=== PATIENT | male | born 1945 | race Caucasian/White ===

== ENCOUNTER → 2016-03-21 | Outpatient (CLI) | payer BC ==
[~2016-03-21] MED LIST: FRS/40 PO; MULT-573 PO; Metoprolol Succinate PO; POTA20TA16 PO; XRL10 PO
[2016-03-21 11:10] LABS: HEMATOCRIT 45.1 % (42-52); MEAN CELL VOLUME 95.6 fL (80-100); MEAN CORPUSCULAR HEMOGLOBIN 34.1 pg (25-34); MEAN CORPUSCULAR HGB CONC 35.7 g/dl (32-36); MEAN PLATELET VOLUME 12.3 fL (7.4-10.4); PLATELET COUNT 142 K/uL (130-400); RED BLOOD COUNT 4.72 M/uL (4.7-6.1); WHITE BLOOD COUNT 5.79 K/uL (4.8-10.8)
[2016-03-21 11:30] LABS: BLOOD UREA NITROGEN 30 mg/dl (7-18); BUN/CREATININE RATIO 25.2 (10-20); CALCIUM 9.1 mg/dl (8.5-10.1); CARBON DIOXIDE 29 mmol/L (21-32); CHLORIDE 105 mmol/L (98-107); GLUCOSE 114 mg/dl (70-99); POTASSIUM 4.5 mmol/L (3.5-5.1); SODIUM 142 mmol/L (136-145)
== END | disposition home or self-care (01) ==
LOC: C.LABBC 07:09
PROVIDERS: ATTEND Internal Medicine Cardiovascular Disease
DX: I48.91 Unspecified atrial fibrillation (principal); I50.32 Chronic diastolic (congestive) heart failure; R00.1 Bradycardia, unspecified; I34.0 Nonrheumatic mitral (valve) insufficiency; Z79.01 Long term (current) use of anticoagulants

== ENCOUNTER → 2016-10-16 | Outpatient (CLI) | payer BC ==
[2016-10-16 11:31] LABS: BASO % 0.2 %; BASO ABS # 0.01 K/uL (0-0.2); COMPLETE YES; EOS % 1.8 %; HEMATOCRIT 43.8 % (42-52); IG% 0.4 %; LYMPH % 29.6 %; LYMPH ABS # 1.67 K/uL (1.2-3.4); MEAN CELL VOLUME 97.3 fL (80-100); MEAN CORPUSCULAR HGB CONC 34.9 g/dl (32-36); MEAN PLATELET VOLUME 12.7 fL (7.4-10.4); MONO % 6.6 %; NEUT % 61.4 %; PLATELET COUNT 131 K/uL (130-400); WHITE BLOOD COUNT 5.64 K/uL (4.8-10.8)
[2016-10-16 11:56] LABS: ALT/SGPT 29 U/L (12-78); AST/SGOT 24 U/L (15-37); BLOOD UREA NITROGEN 32 mg/dl (7-18); BUN/CREATININE RATIO 28.9 (10-20); CALCIUM 9.1 mg/dl (8.5-10.1); CARBON DIOXIDE 29 mmol/L (21-32); CHLORIDE 107 mmol/L (98-107); CHOLESTEROL 154 mg/dl (0-200); GLUCOSE 104 mg/dl (70-99); POTASSIUM 4.6 mmol/L (3.5-5.1); SODIUM 142 mmol/L (136-145)
[2016-10-16 12:02] LABS: ESTIMATED AVERAGE GLUCOSE 117 mg/dl; HA1C FLAG Normal (Normal)
[2016-10-16 12:06] LABS: ALKALINE PHOSPHATASE 63 U/L (45-117); CHOLESTEROL/HDL RATIO 2.5; HDL CHOLESTEROL 61 mg/dl; LDL CHOLESTEROL CALCULATED 82 mg/dl; TRIGLYCERIDES 55 mg/dl (0-150); VERY LOW DENSITY LIPOPROT CALC 11 mg/dl
== END | disposition home or self-care (01) ==
LOC: C.LABBC 07:10
PROVIDERS: ATTEND Internal Medicine Cardiovascular Disease
DX: I48.91 Unspecified atrial fibrillation (principal); I34.0 Nonrheumatic mitral (valve) insufficiency; Z79.01 Long term (current) use of anticoagulants; I11.0 Hypertensive heart disease with heart failure; I50.32 Chronic diastolic (congestive) heart failure; R73.9 Hyperglycemia, unspecified; E78.5 Hyperlipidemia, unspecified

== ENCOUNTER → 2017-04-24 | Outpatient (CLI) | payer BC ==
[2017-04-24 11:06] LABS: HEMATOCRIT 42.7 % (42-52); HEMOGLOBIN 14.9 g/dL (14.0-18.0); MEAN CELL VOLUME 97.9 fL (80-100); MEAN CORPUSCULAR HEMOGLOBIN 34.2 pg (25-34); MEAN CORPUSCULAR HGB CONC 34.9 g/dl (32-36); MEAN PLATELET VOLUME 11.9 fL (7.4-10.4); PLATELET COUNT 149 K/uL (130-400); RED CELL DISTRIBUTION WIDTH CV 13.6 % (11.5-14.5); RED CELL DISTRIBUTION WIDTH SD 48.8 fL (36.4-46.3)
[2017-04-24 11:24] LABS: BLOOD UREA NITROGEN 30 mg/dl (7-18); CALCIUM 9.2 mg/dl (8.5-10.1); CARBON DIOXIDE 30 mmol/L (21-32); CREATININE 1.17 mg/dl (0.60-1.40); GLUCOSE 116 mg/dl (70-99); POTASSIUM 4.3 mmol/L (3.5-5.1); SODIUM 140 mmol/L (136-145)
== END | disposition home or self-care (01) ==
LOC: C.LABBC 08:56
PROVIDERS: ATTEND Internal Medicine Cardiovascular Disease
DX: I48.91 Unspecified atrial fibrillation (principal); R00.1 Bradycardia, unspecified

== ENCOUNTER 2017-10-23 14:33 | Emergency (ER) | payer BC ==
[~2017-10-23] VITALS: Ht 162.6 cm; Wt 66.0 kg
[~2017-10-23 14:33] MED LIST changes: +POTA-639 PO; -POTA20TA16 PO
[2017-10-23 14:41] VITALS: TEMP 36.5; Ht 162.6 cm; Wt 66.0 kg
--- NOTE | 2017-10-23 15:02 | EMERGENCY ROOM VISIT NOTE ---
History Report prepared by Francisca: Rasta Pace Under the Supervision of: Dr. Khris Waller M.D. First contact with patient: 14:44 Chief Complaint: BLEEDING Stated Complaint: BLOOD FROM BLISTER ON RT TESTICLE History of Present Illness The patient is a 71 year old male with a past medical history of hypertension who presents to the ED with a cc of an episode of scrotal bleeding that began 45 minutes ago. The patient states he brushed against his scrotum and opened up a blood blister. He notes that he has had these blood blisters for about 25 years and have only experienced them opening up two other times. He states that the last time this happened was about 15 years ago. The patient reports that he takes 20mg of Xarelto a day and 25mg of Toprol a day for Afib. Negative for urination symptoms and testicular pain. Source of History: patient Onset: 45 minutes ago Position: other (scrotum) Quality: other (bleeding) Timing: other (episodic) Associated Symptoms: No urinary symptoms Review of Systems See HPI for pertinent positives and negatives. A total of ten systems were reviewed and were otherwise negative. Past Medical & Surgical Medical Problems: (1) Benign hypertension Family History Patient reports no known family medical history. Social History Smoking Status: Never Smoker Marital Status: Housing Status: lives with significant other Current/Historical Medications Scheduled Multiple Vitamins W/ Minerals (Centrum Cardio), 1 TAB PO DAILY Rivaroxaban (Xarelto), 20 MG PO DAILY [Metoprolol Succinate], 50 MG PO QAM Scheduled PRN Furosemide (Lasix), 40 MG PO for . Potassium Ext Rel (Klor-Con), 20 MEQ PO for . Allergies Coded Allergies: No Known Allergies (Unverified , 04/28/15) Physical Exam Vital Signs Date Time Temp Pulse Resp B/P (MAP) Pulse Ox O2 Delivery O2 Flow Rate FiO2 10/23/17 15:57 70 20 140/83 99 10/23/17 14:41 36.5 63 20 146/73 98 Room Air Physical Exam GENERAL: Awake, alert, well-appearing, NAD, wearing glasses HENT: Normocephalic, atraumatic. EYES: Normal conjunctiva. Sclera non-icteric. PERRL. No anisocoria. NECK: Supple. No nuchal rigidity. FROM. RESPIRATORY: CTAB, no rhonchi, wheezing, crackles CARDIAC: Irregularly irregular rhythm, no MRG, normocardic ABDOMEN: Soft, NTND, BS+ MSK: No chest wall TTP, no LE edema NEURO: GCS 15, CN 2-12 intact, moves all 4s on command SKIN: No rash or jaundice noted. bandage over right scrotal area, hemostatic, no active bleeding, No erythema, crepitus, or fluctuance. Medical Decision & Procedures Procedure Location: Right scrotum Total length: 1/4 inch Complexity: Simple Verbal consent was obtained after the risks and benefits were explained, including but not limited to bleeding, scarring, infection, pain, and bone/joint /nerve damage. At this time, the risks of the procedure are less than the risks of NOT performing the procedure. A time out was taken and the correct patient and site identified. The skin was prepped with an alcohol swab. The wound edges were approximated using skin glue. Hemostasis and excellent approximation was achieved. Detailed wound care instructions and signs and symptoms of infection reviewed with the patient. No complications and the patient tolerated the procedure well. ED Course 1448: The patient was evaluated in room C5. A complete history and physical exam was performed. 1558: I reevaluated the patient. Discussed results and discharge instructions: He verbalized understanding and agreement. The patient is ready for discharge. Medical Decision Nursing notes reviewed. Ancillary studies and prior records reviewed. The patient is a 71 year old male with a past medical history of hypertension who presents to the ED with a cc of an episode of scrotal bleeding that began 45 minutes ago. Differential diagnosis: Etiologies such as cellulitis, abscess, MRSA infection, DVT, necrotizing fasciitis, dermatitis, drug eruption, as well as others were entertained. Patient was seen and evaluated the bedside. The patient has a known history of prior history of small almost hemangiomas of the scrotum. Patient states that he has had these ruptures before and that they have bled but usually resolve fairly quickly the patient was concerned as he is now on Xarelto and has been so for the last 3 years given his history of A. fib. On exam the patient's bandages providing hemostasis but the patient was very adamant that the area be checked and after discussion with the patient that this may further cause worsening bleeding and clot disruption stated that he still wanted it looked at. This is removed and the patient did have subsequent bleeding. It is very small in nature less than 1/4 inch. It is hemostatic with pressure. Initially a Band-Aid was applied but there is mild persistent bleeding so additional compression was manually applied by the patient and some skin glue was applied. This did achieve hemostasis. There is no evidence of overlying L erythema. Given the prolonged course that he has had these small lesions which do appear to be almost blood blister like or even hemangiomas do not believe that there is any evidence of cellulitis no crepitus and no pain suggestive of Deanna's. Patient was given a glue pen and was told that he should first try things like compression, formfitting underwear, ice, and pressure. Do not believe the patient requires any further workup or treatment at this time. The patient's bleeding is been fairly minimal and is from a very small site that is well compressed and is currently hemostatic. Patient was given strict follow-up, discharge, and return precautions. All questions were answered. Patient was deemed suitable for outpatient follow-up at this time. Patient agreed with the plan of care and was safely discharged home. Medication Reconcilliation Current Medication List: was personally reviewed by me Blood Pressure Screening Patient's blood pressure: Elevated blood pressure Blood pressure disposition: Elevated BP felt to be situational Impression Primary Impression: Bleeding pigmented skin lesion Scribe Attestation The scribe's documentation has been prepared under my direction and personally reviewed by me in its entirety. I confirm that the note above accurately reflects all work, treatment, procedures, and medical decision making performed by me. Departure Information Dispostion Home / Self-Care Referrals Smith Cassidy M.D. (PCP) Forms HOME CARE DOCUMENTATION FORM, IMPORTANT VISIT INFORMATION Patient Instructions My [facility] Additional Instructions Please return to the emergency department if you have worsening or recurrent symptoms not amenable to at-home treatment. Please call for a follow-up appointment with her primary care physician. Please take your medications as prescribed. If you have other concerns and/or complaints please feel free to also call your primary care physician's office or return the ED for further evaluation, management, and treatment. You may take tylenol 650 mg every 6 hours as needed for pain/fever unless told by your physician to not take it or have liver problems. Take your medications as prescribed. Make sure that you apply compression and consider ice to help with any improvement in any further bleeding. Follow-up with your primary care physician. You have been examined and treated today on an emergency basis only. This is not a substitute for, or an effort to provide, complete comprehensive medical care. It is impossible to recognize and treat all injuries or illnesses in a single emergency department visit. It is therefore important that you follow up closely with [facility], your PCP, and/or your specialist(s). Call as soon as possible for an appointment. Thank you for your time and consideration. I look forward to speaking with you again soon. Please don't hesitate to call us if you have any questions.
[2017-10-23 15:57] VITALS: BP 140/83; PULSE 70; O2SAT 99
== END 2017-10-23 15:58 | disposition home or self-care (01) ==
LOC: C.EDB 14:34 → C.EDC 15:58
DX: L98.9 Disorder of the skin and subcutaneous tissue, unspecified (principal); I10 Essential (primary) hypertension

== ENCOUNTER 2021-11-11 03:25 | Inpatient (IN) ==
[2021-11-11 03:31] VITALS: TEMP 98.4
[2021-11-11] MEDS ORDERED: SODIUM CHLORIDE 0.9% 1000ML 1,000 ML IV STA (04:08)
[2021-11-11 04:37] LABS: Basophils # (auto) 0.02 K/uL (0-0.2); Basophils % (auto) 0.3 %; Eosinophils % (auto) 1.7 %; Hematocrit (blood only) 42.3 % (40.1-51.0); Hemoglobin 14.7 g/dl (14.0-18.0); Immature Granulocytes # (auto) 0.02 K/uL (0.00-0.02); Immature Granulocytes % (auto) 0.3 %; Lymphocytes # (auto) 1.51 K/uL (1.2-3.4); Lymphocytes % (auto) 25.7 %; Mean Corpuscular Hemoglobin 33.9 pg (25.0-34.0); Mean Corpuscular Hgb Conc 34.8 g/dL (32.0-36.0); Mean Corpuscular Volume 97.7 fL (80.0-100.0); Mean Platelet Volume 10.9 fL (9.4-12.4); Monocytes # (auto) 0.49 K/uL (0.24-0.82); Monocytes % (auto) 8.3 %; Neutrophils # (auto) 3.74 K/uL (1.4-6.5); Neutrophils % (auto) 63.7 %; Platelet Count 157 K/uL (130-400); RDW Coefficient of Variation 13.3 % (11.5-14.5); Red Blood Count 4.33 M/uL (4.63-6.08); White Blood Count 5.88 K/ul (4.8-10.8)
[2021-11-11 04:40] LABS: Appearance Urine Clear (Clear); Bilirubin Urine Negative (Negative); Blood Urine Negative (Negative); Color Urine Yellow; Glucose Urine UA Negative (Negative); Ketones Urine Negative (Negative); Leukocyte Esterase Urine Negative (Negative); Nitrite Urine Negative (Negative); Protein Urine Negative (Negative); Specific Gravity Urine 1.015 (1.000-1.030); Urobilinogen Urine Negative (Negative)
[2021-11-11 04:58] LABS: Albumin Globulin Ratio 1.5 (0.9-2); Albumin Level 4.1 gm/dl (3.4-5.0); BUN Creatinine Ratio 26.2 (10-20); Bilirubin,Total 3.2 mg/dl (0.2-1.0); Calcium 9.4 mg/dl (8.5-10.1); Creatinine Clr Calc Pharmacy 48.4 ml/min; Est GFR (African American) 77.2 ml/min; Est GFR (Non-African American) 66.6 ml/min; Globulin 2.8 gm/dl (2.5-4.0); Total Protein 6.9 gm/dl (6.0-8.3)
[2021-11-11 05:01] LABS: Troponin I High Sensitivity 37.7 pg/ml (0-20)
--- NOTE | 2021-11-11 08:07 | Electrocardiogram Report ---
Test Reason : Blood Pressure : / mmHG Vent. Rate : 049 BPM Atrial Rate : 049 BPM P-R Int : 266 ms QRS Dur : 118 ms QT Int : 462 ms P-R-T Axes : 000 -56 113 degrees QTc Int : 417 ms Atrial flutter Left axis deviation Left ventricular hypertrophy with QRS widening and repolarization abnormality Old Anteroseptal infarct (cited on or before 07-JUL-2014) Abnormal ECG When compared with ECG of 11-NOV-2021 03:49, No significant change Confirmed by Issa Ernst ([id number]) on 11/11/2021 11:17:41 AM Referred By: REFERRED SELF Confirmed By:Issa Ernst
--- NOTE | 2021-11-11 08:16 | Ultrasound Report ---
ABDOMINAL ULTRASOUND, RIGHT UPPER QUADRANT HISTORY: Epigastric pain. COMPARISON: Abdomen and pelvis CT 12/16/2018. FINDINGS: Pancreas: The pancreatic head and tail are obscured by overlying bowel gas. The remaining portions of the pancreas are within normal limits. Liver: Unremarkable. Gallbladder: There is 1.6 cm gallstone. No gallbladder wall thickening. CBD: 4 mm. Right kidney: No hydronephrosis. A few right renal cysts measuring up to 4.1 cm. IMPRESSION: 1. Cholelithiasis. No gallbladder wall thickening. 2. Right renal cysts. ACT 112: Negative or not required by law. Electronically signed by: Tomas Sage M.D. 11/11/2021 8:14 AM
--- NOTE | 2021-11-11 08:52 | Electrocardiogram Report ---
Test Reason : Blood Pressure : / mmHG Vent. Rate : 052 BPM Atrial Rate : 388 BPM P-R Int : 000 ms QRS Dur : 124 ms QT Int : 458 ms P-R-T Axes : 000 -55 109 degrees QTc Int : 425 ms Atrial flutter with variable A-V block Left axis deviation Left ventricular hypertrophy with QRS widening and repolarization abnormality Old Anteroseptal infarct (cited on or before 07-JUL-2014) Abnormal ECG When compared with ECG of 19-APR-2019 10:09, Atrial flutter has replaced Atrial fibrillation Confirmed by Issa Ernst ([id number]) on 11/11/2021 8:07:04 AM Also confirmed by Issa Ernst ([id number]), web editor Dirk Pleitez ([id number]) on 11/11/2021 8:51:58 AM Referred By: REFERRED SELF Confirmed By:Issa Ernst
--- NOTE | 2021-11-11 08:55 | History & Physical Report ---
Date of Service November 11, 2021 Assessment & Plan (1) Elevated bilirubin: Plan: Attending: Dr. Jacobsen Impression: This is a 75-year-old male that presents with 2 weeks of abdominal pain. He previously followed with Dr. Yanez but had altercation with him on the telephone and began following with [facility] gastroenterology. The fox raiser from [facility] that he was following no longer comes to [place] so he was unable to see him further. The patient reports that he awoke at about 2:30 in the morning this morning with increased midepigastric pain. He had no nausea or vomiting. He and his decided to present to the emergency department where the patient was found to have elevated total bilirubin of 3.5. Review of the labs show that the patient has had an elevated total bilirubin of 2.1 or higher since about 2018. This suggest the possibility of Gilbert's disease. Patient will be admitted for MRCP, gastroenterology consult and possible HIDA scan. Elevated total bilirubin: * Suspect Gilbert's syndrome due to chronically elevated total bilirubin * No elevated white count. No fever. Ultrasound shows no evidence of cholecystitis or pancreatitis. There is no dilatation of the common bile duct. There is however evidence of a single stone. * Patient will be admitted and hydrated with normal saline solution 125 mL/h * No indication for antibiotics at this time * Will order a direct bilirubin * MRCP ordered. Patient is n.p.o. No ice chips or sips until MRCP is completed * Gastroenterology consulted. Surgery consulted. I personally spoke with gastroenterology as well as surgery to expedite care plan (2) Atrial fibrillation: Plan: * Patient with permanent atrial fibrillation on Toprol-XL and anticoagulated with Eliquis * Generally patient has been rate controlled and completely asymptomatic for several years * Follows with Dr. Turner from [facility] cardiology * Will hold Eliquis today pending GI and surgical review as above * No other acute cardiac issues (3) Chronic diastolic CHF (congestive heart failure): Plan: * No evidence of heart failure at this time * No lower extremity edema * Patient is not on outpatient diuretics * Continue to monitor fluid status (4) Anticoagulant long-term use: Plan: * Chronically anticoagulated for atrial fibrillation under the direction of Dr. Turner from [facility] cardiology * At this time we will hold anticoagulant as above * If no surgical intervention or procedures, restart anticoagulation. Patient is rate controlled (5) Constipation: Plan: * Patient is followed Dr. Yanez in the past and is currently receiving MiraLAX daily * Home dose is listed as 17 g daily however patient reports that he only takes 8.5 g/day (half packet) * Will continue daily MiraLAX while inpatient * Follow bowel movement pattern (6) Hypertension: Plan: * Continue metoprolol succinate 25 mg daily * Monitor vital signs per protocol and treat hypertension as needed (7) DVT prophylaxis: Plan: * Hold outpatient anticoagulant * SCDs and CORA hose are ordered * Patient is cleared to ambulate as tolerated Please refer to Dr. Jacobsen's addendum for further recommendations or corrections. History of Present Illness Chief Complaint: Mid epigastric pain Primary Care Provider: Calin Padgett DO Attending: Dr. Jacobsen Patient is a 75 yo male that presents with 2 weeks of midepigastric pain. He has a past medical history including chronic atrial fibrillation on anticoagulation, history of constipation on daily polyethylene glycol (MiraLAX), history of GERD. Patient presents with a 2-week history of midepigastric pain. He has been having regular bowel movements with no diarrhea. He does have history of chronic constipation that is well managed with daily MiraLAX. The patient awoke at 230 this morning with increased midepigastric pain. He had no fever or chills but decided to present to the emergency department for further evaluation. Ultrasound was performed and identified a solitary stone that appeared to be from his gallbladder. There is no common bile duct dilatation, no cholecystitis, no pancreatitis. Patient had no elevation in his white cells. No fever. No nausea or vomiting. At the time of my examination, the patient pain was completely resolved. Patient reports chronic atrial fibrillation that he follows Dr. Turner for. He is treated with metoprolol succinate (Toprol) 25 mg p.o. daily and is anticoagulated with rivaroxaban 20 mg p.o. daily. Patient reports no other acute complaints at this time. Patient has a [id number] smoking history. He quit smoking in 1977 Patient is a retired professor of Telepartner studies at [employer] Patient has no other vocational exposure or risk factors Allergies Allergy/AdvReac Type Severity Reaction Status Date / Time amoxicillin AdvReac Diarrhea Verified 10/13/21 08:20 Home Medications Medication Instructions Recorded Confirmed Type multivitamin with minerals 1 tab PO BID 07/02/18 10/13/21 History diltiazem transdermal .2-3 times daily PRN 10/19/20 10/13/21 History metoprolol succinate 25 mg 25 mg PO QAM #90 tabs 05/21/21 10/13/21 Rx tablet,extended release 24 hr (Toprol XL) rivaroxaban 20 mg tablet (Xarelto) 20 mg PO QAM #90 tabs 05/21/21 10/13/21 Rx polyethylene glycol 3350 17 17 g PO DAILY 08/31/21 10/13/21 History gram/dose oral powder (Miralax) famotidine 20 mg tablet (Pepcid) 20 mg PO BID 6 weeks #84 tabs 11/11/21 Rx Past Med/Surg History Medical History Anal fissure Atrial fibrillation Bradycardia Chronic diastolic CHF (congestive heart failure) 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 Diverticular disease Dyslipidemia Elevated bilirubin Generalized osteoarthritis Hypertension Ischemic colitis Mitral regurgitation Pulmonary hypertension Sensorineural hearing loss of both ears Syncope and collapse Tricuspid regurgitation Surgical History H/O colonoscopy History of incision and drainage perirectal abscess Family History Father Brain tumor Mother Macular degeneration Denies family history of Ovarian cancer Prostate cancer Myocardial infarction Breast cancer Lung cancer Colorectal cancer Stroke Social History Smoking Status: Unknown if ever smoked Tobacco Type: Cigarettes Age Started Using Tobacco: 15; Age Quit Using Tobacco: 32; packs per day: 1; Years Smoked: 18; Cigarettes Per Day: 20 to 40 unfiltered; Number of Years Since Quit: 40; Second Hand Exposure: No; Hx Alcohol Use: Yes Alcohol type: hard liquor Alcohol Intake Frequency: 2-3 x/Week Alcohol Intake Frequency Comment: one a day Hx Substance Use: No Preferred Language: Malay Visual Impairment: Limited Hearing Ability: Normal Beliefs That Will Affect Care: None marital status: Current Living Situation: Spouse current occupational status: retired How many Children do You have: 2 Feels Safe at Home: Yes Childhood Exposure to Second-Hand Smoke: Yes (parents did ) caffeine: No Dental Care, Regularly: Yes Physical Activity Frequency: Does not Exercise Physical Activity Frequency Comment: doesn't because of hip Seatbelt Use: always Sunscreen Use: Yes Do you think of yourself as: straight/heterosexual Review of Systems Review of Systems: A total of 10 systems was reviewed and is negative other than as listed in the HPI Physical Exam Physical Exam: GENERAL : No acute distress EYES: No icterus, gaze conjugate. Pupils equal round and reactive to light NOSE: No evidence of epistaxis or septal breach MOUTH: No lesions or candidiasis. Mallampati score of 2 NECK: Supple. No carotid bruits. No stridor. No cervical lymphadenopathy LUNGS: CTA B/L, no wheezes, rales or rhonchi HEART: Irregular, irregular, rate controlled at 68 bpm. Patient is unaware of arrhythmia ABDOMEN: Soft, NT, ND, BS Present. Deep palpation at the liver reveals no pain or discomfort. Deep palpation of the mid epigastric region shows no discomfort. No guarding or rebound tenderness EXTREMITIES: No LE edema, pedal pulses intact and equal bilaterally. Patient has palpable inguinal hernias bilaterally. There is no evidence of incarceration or pain with palpation. NEURO: A&OX3 Results & Data Results & Data ([facility]) Vital Signs (Past 12 Hours) Vital Signs Temp Pulse Pulse Resp BP Pulse Ox O2 Del Method 11/11/21 06:22 57 L 22 145/59 H 99 Room Air 11/11/21 04:22 97 Room Air 11/11/21 03:49 61 18 139/75 11/11/21 03:28 36.9 C 73 18 99 Room Air Critical Care Results & Data Vital Signs (Past 12 Hours) Vital Signs Temp Pulse Pulse Resp BP Pulse Ox O2 Del Method 11/11/21 08:00 118 H 16 118/67 99 11/11/21 06:22 57 L 22 145/59 H 99 Room Air 11/11/21 04:22 97 Room Air 11/11/21 03:49 61 18 139/75 11/11/21 03:28 36.9 C 73 18 99 Room Air Lab & Micro Results (Past 24 Hours) RBC 4.33 M/uL (4.63-6.08) L 11/11/21 WBC 5.88 K/ul (4.8-10.8) 11/11/21 Hgb 14.7 g/dl (14.0-18.0) 11/11/21 Hct 42.3 % (40.1-51.0) 11/11/21 MCV 97.7 fL (80.0-100.0) 11/11/21 MCH 33.9 pg (25.0-34.0) 11/11/21 MCHC 34.8 g/dL (32.0-36.0) 11/11/21 RDW Standard Deviation 48.0 fL (36.4-46.3) H 11/11/21 RDW Coefficient of Variation 13.3 % (11.5-14.5) 11/11/21 Plt Count 157 K/uL (130-400) 11/11/21 MPV 10.9 fL (9.4-12.4) 11/11/21 Neutrophils (%) (Auto) 63.7 % 11/11/21 Lymphocytes (%) (Auto) 25.7 % 11/11/21 Monocytes # (Auto) 0.49 K/uL (0.24-0.82) 11/11/21 Eosinophils # (Auto) 0.10 K/uL (0-0.50) 11/11/21 Immature Granulocyte % (Auto) 0.3 % 11/11/21 Neutrophils # (Auto) 3.74 K/uL (1.4-6.5) 11/11/21 Lymphocytes # (Auto) 1.51 K/uL (1.2-3.4) 11/11/21 Monocytes # (Auto) 0.49 K/uL (0.24-0.82) 11/11/21 Eosinophils # (Auto) 0.10 K/uL (0-0.50) 11/11/21 Basophils # (Auto) 0.02 K/uL (0-0.2) 11/11/21 Immature Granulocyte # (Auto) 0.02 K/uL (0.00-0.02) 2 Na 139 mmol/L (136-145) 11/11/21 K 4.0 mmol/L (3.5-5.1) 11/11/21 Cl 105 mmol/L (98-107) 11/11/21 CO2 27 mmol/L (21-32) 11/11/21 Anion Gap 7 (3-11) 11/11/21 BUN 28 mg/dl (6-23) H 11/11/21 Creatinine 1.07 mg/dl (0.6-1.4) 11/11/21 Estimated GFR ( Amer) 77.2 ml/min 11/11/21 Estimated GFR (Non-Af Amer) 66.6 ml/min 11/11/21 BUN/Creatinine Ratio 26.2 (10-20) H 11/11/21 Glu 103 mg/dl (70-99(Fasting)) H 11/11/21 Ca 9.4 mg/dl (8.5-10.1) 11/11/21 Total Bilirubin 3.2 mg/dl (0.2-1.0) H 11/11/21 Direct Bilirubin 0.5 mg/dl (0-0.2) H 11/11/21 AST 21 U/L (13-39) 11/11/21 ALT 17 U/L (7-52) 11/11/21 Alkaline Phosphatase 64 U/L (34-104) 11/11/21 TP 6.9 gm/dl (6.0-8.3) 11/11/21 Albumin 4.1 gm/dl (3.4-5.0) 11/11/21 Globulin 2.8 gm/dl (2.5-4.0) 11/11/21 Albumin/Globulin Ratio 1.5 (0.9-2) 11/11/21 Calcium Level 9.4 mg/dl (8.5-10.1) 11/11/21 04:20 Diagnostic Findings (Past 24 Hours) Gallbladder Ultrasound 11/11/21 04:16 ABDOMINAL ULTRASOUND, RIGHT UPPER QUADRANT HISTORY: Epigastric pain. COMPARISON: Abdomen and pelvis CT 12/16/2018. FINDINGS: Pancreas: The pancreatic head and tail are obscured by overlying bowel gas. The remaining portions of the pancreas are within normal limits. Liver: Unremarkable. Gallbladder: There is 1.6 cm gallstone. No gallbladder wall thickening. CBD: 4 mm. Right kidney: No hydronephrosis. A few right renal cysts measuring up to 4.1 cm. IMPRESSION: 1. Cholelithiasis. No gallbladder wall thickening. 2. Right renal cysts. ACT 112: Negative or not required by law. Electronically signed by: Tomas Sage M.D. 11/11/2021 8:14 AM RT Ventilator Mngmt (Last Documented) Ventilator Ordered Settings Respiratory Rate 16 11/11/21 08:00 Ventilator - PT Measurements Respiratory Rate 16 Code Status & VTE Plan VTE Prophylaxis Plan VTE Prophylaxis will be ordered: Yes Supervising Physician Co-Signing Physician Notes Patient was seen and examined independently I discussed the case with Quang Meyer PAC I reviewed pertinent past medical social family history and also the plan of care and agree with the plan of care. Patient presented with abdominal pain epigastric in nature which has been escalating over the last few weeks it does not appear to be sensitive to eating drinking or recumbency. He previously has been engaged with Dr. Yanez regarding this. Physical exam is nonfocal his pain is resolved laboratories were reviewed there is no significant derangement with exception of elevation of bilirubin with elevation of transaminases. Patient is admitted for further evaluation surgical and GI evaluation also Any exceptions will be noted below PG Care Time/CCT Total # of Minutes Spent Total Time Spent with Patient: Total time spent is greater than 50% in coordination of care (as documented) at patient's floor/unit and/or counseling patient:70 with 45 minutes of [id number] interaction with the patient and his Prolonged Care Time 70 minutes including 45 minutes of [id number] interaction with the patient and his Coding Level of Care Code 25442 Initial Inpt Care Lvl 3 (25 - SIGNIFICANT, SEPARATELY IDENTIFIABLE ) Diagnoses Elevated bilirubin R17 Atrial fibrillation I48.91 Chronic diastolic CHF (congestive heart failure) I50.32 Anticoagulant long-term use Z79.01 Constipation K59.00 Hypertension I10 DVT prophylaxis Z29.9 Time Spent (min) 70
--- NOTE | 2021-11-11 09:43 | Gastrointestinal Consultation ---
Date of Consultation November 11, 2021 Assessment & Plan (1) Elevated bilirubin: (2) Epigastric abdominal pain: Plan - discussed case with Dr. Yanez who advised on plan. - will await the MRCP results. - suspect that bilirubin is related to [place] syndrome. - if mrcp negative, would have patient start pepcid as outpatient and schedule outpatient hospital follow up to discuss further and consider outpatient EGD. Supervising Physician Co-Signing Physician Notes I personally evaluated the patient and agree with the findings as documented by BRADY Murray Exam: Constitutional: WD/WN, vitals as above General: EOM intact bilaterally Neck: normal visual inspection Respiratory: normal respiratory effort, lungs clear to auscultation Cardiovascular: RRR, no murmur, no edema Gastrointestinal: abdomennormal to inspection, nondistended, soft, nontender, no hepatosplenomegaly Musculoskeletal: no cyanosis, head normal to inspection Skin: no rashes, warm and dry Neurologic: moves all extremities Psychiatric: A and O x3, euthymic affect ok to follow up outpt with gi as scheduled next week if MRCP is negative. start pepcid upon discharge. History of Present Illness Reason for Consultation: elevated bilirubin Requesting Physician: Quang ABREU History of Present Illness Patient is a 75 year old male with pmhx of CHF, MR deisy raymundo, who presented to the ED for 2 weeks of intermittent epigastric abdominal pain. Can be triggered by foods but not always. he tells me that he does have multiple episodes a day. He describes as a presssure sensation that is dull. He woke up last night with worsening symptoms so he decided to proceed to the ED for evaluation. In the ED he was found to have an elevated total bili of 3.5 but he has had elevated bilirubin for years since about 2019. He tells me that since coming to the ED his pain has subsided and he actually feels better now. MRCP has been ordered and is pending. he denies any nausea, vomiting, dysphagia, change in bowels, melena, or brbpr. Allergies Allergy/AdvReac Type Severity Reaction Status Date / Time amoxicillin AdvReac Diarrhea Verified 10/13/21 08:20 Home Medications Medication Instructions Recorded Confirmed Type multivitamin with minerals 1 tab PO BID 07/02/18 10/13/21 History diltiazem transdermal .2-3 times daily PRN 10/19/20 10/13/21 History metoprolol succinate 25 mg 25 mg PO QAM #90 tabs 05/21/21 10/13/21 Rx tablet,extended release 24 hr (Toprol XL) rivaroxaban 20 mg tablet (Xarelto) 20 mg PO QAM #90 tabs 05/21/21 10/13/21 Rx polyethylene glycol 3350 17 17 g PO DAILY 08/31/21 10/13/21 History gram/dose oral powder (Miralax) Patient History Medical History Anal fissure Atrial fibrillation Bradycardia Chronic diastolic CHF (congestive heart failure) 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 Diverticular disease Dyslipidemia Elevated bilirubin Generalized osteoarthritis Hypertension Ischemic colitis Mitral regurgitation Pulmonary hypertension Sensorineural hearing loss of both ears Syncope and collapse Tricuspid regurgitation Surgical History H/O colonoscopy History of incision and drainage perirectal abscess Family History Father Brain tumor Mother Macular degeneration Denies family history of Ovarian cancer Prostate cancer Myocardial infarction Breast cancer Lung cancer Colorectal cancer Stroke Social History Smoking Status: Unknown if ever smoked Tobacco Type: Cigarettes Age Started Using Tobacco: 15; Age Quit Using Tobacco: 32; packs per day: 1; Years Smoked: 18; Cigarettes Per Day: 20 to 40 unfiltered; Number of Years Since Quit: 40; Second Hand Exposure: No; Hx Alcohol Use: Yes Alcohol type: hard liquor Alcohol Intake Frequency: 2-3 x/Week Alcohol Intake Frequency Comment: one a day Hx Substance Use: No Preferred Language: Malay Visual Impairment: Limited Hearing Ability: Normal Beliefs That Will Affect Care: None marital status: Current Living Situation: Spouse current occupational status: retired How many Children do You have: 2 Feels Safe at Home: Yes Childhood Exposure to Second-Hand Smoke: Yes (parents did ) caffeine: No Dental Care, Regularly: Yes Physical Activity Frequency: Does not Exercise Physical Activity Frequency Comment: doesn't because of hip Seatbelt Use: always Sunscreen Use: Yes Do you think of yourself as: straight/heterosexual Review of Systems Review of Systems: All systems reviewed & are unremarkable except as noted in HPI & below Physical Exam Constitutional: WD/WN, vitals as above Eyes: + anicteric sclerae and PERRL Respiratory: normal respiratory effort, lungs clear to auscultation Cardiovascular: RRR, no murmur, no edema Gastrointestinal (Abdomen): normal bowel sounds, soft, nontender, no hepatosplenomegaly Skin: no rashes, warm and dry Psychiatric: Orientation: alert and oriented x 3 Affect: euthymic affect Results & Data ([facility]) Vital Signs (Past 12 Hours) Vital Signs Temp Pulse Pulse Resp BP Pulse Ox O2 Del Method 11/11/21 08:00 118 H 16 118/67 99 11/11/21 06:22 57 L 22 145/59 H 99 Room Air 11/11/21 04:22 97 Room Air 11/11/21 03:49 61 18 139/75 11/11/21 03:28 36.9 C 73 18 99 Room Air Diagnostic Findings ABDOMINAL ULTRASOUND, RIGHT UPPER QUADRANT HISTORY: Epigastric pain. COMPARISON: Abdomen and pelvis CT 12/16/2018. FINDINGS: Pancreas: The pancreatic head and tail are obscured by overlying bowel gas. The remaining portions of the pancreas are within normal limits. Liver: Unremarkable. Gallbladder: There is 1.6 cm gallstone. No gallbladder wall thickening. CBD: 4 mm. Right kidney: No hydronephrosis. A few right renal cysts measuring up to 4.1 cm. IMPRESSION: 1. Cholelithiasis. No gallbladder wall thickening. 2. Right renal cysts. PG Care Time/CCT Total # of Minutes Spent Total Time Spent with Patient: Total time spent is greater than 50% in coordination of care (as documented) at patient's floor/unit and/or counseling patient: Coding Level of Care Code 84693 Initial Inpt Care Lvl 3 Diagnoses Elevated bilirubin R17 Epigastric abdominal pain R10.13
[2021-11-11] MEDS ORDERED: ONDANSETRON INJ 2 MG/ML 2 ML VIAL IV PRN (10:01)
[2021-11-11] MEDS ORDERED: ALUMINUM/MAGNESIUM SUSP 30 ML UDC PO PRN (10:01)
[2021-11-11] MEDS ORDERED: SODIUM CHLORIDE 0.9% 1000ML 1,000 ML IV SCH (10:01)
[2021-11-11] MEDS ORDERED: MAGNESIUM HYDROXIDE SUSP 30 ML UDC PO PRN (10:01)
[2021-11-11] MEDS ORDERED: ACETAMINOPHEN 325 MG TAB PO PRN (10:01)
[2021-11-11] MEDS ORDERED: CEROVITE ADV FORMULA TAB PO SCH (10:15)
[2021-11-11] MEDS ORDERED: POLYETHYLENE (MIRALAX) 17 GM PACK PO SCH (10:15)
--- NOTE | 2021-11-11 10:26 | Surgery Consultation ---
Date of Consultation November 11, 2021 Assessment & Plan (1) Epigastric abdominal pain: (2) Elevated bilirubin: Plan 75-year-old gentleman with epigastric abdominal pain and elevated total bilirubin. He has a history of hyperbilirubinemia in the past. He is not febrile, has no white count, and does not have any pain in his right upper abdomen at this time. Do not believe he has acute cholecystitis. Due to the elevated bilirubin, we will obtain direct bilirubin level and MRCP. He has been seen by GI as well. He will most likely be discharged home later today for further work-up as an outpatient. Please call with any new or concerning symptoms. History of Present Illness Reason for Consultation: ? cholecystitis Requesting Physician: Bethanie Quintero MD Attending Physician: Valdo Jacobsen MD History of Present Illness 75-year-old gentleman presents the emergency department with 10-hour history of upper epigastric abdominal pain. It does not radiate to the right or left. It is not accompanied by nausea or vomiting. He denies any fevers or chills. He has been having normal bowel movements with the use of daily MiraLAX. He is seen by gastroenterology. This pain has apparently been progressive for the last 2 weeks. He was prescribed Pepcid, however he has not taken it yet. He states the pain became too much and he was brought to the hospital this evening. Ultrasound demonstrates gallstones in the gallbladder with no evidence of cholecystitis. Allergies Allergy/AdvReac Type Severity Reaction Status Date / Time amoxicillin AdvReac Diarrhea Verified 10/13/21 08:20 Home Medications Medication Instructions Recorded Confirmed Type multivitamin with minerals 1 tab PO BID 07/02/18 10/13/21 History diltiazem transdermal .2-3 times daily PRN 10/19/20 10/13/21 History metoprolol succinate 25 mg 25 mg PO QAM #90 tabs 05/21/21 10/13/21 Rx tablet,extended release 24 hr (Toprol XL) rivaroxaban 20 mg tablet (Xarelto) 20 mg PO QAM #90 tabs 05/21/21 10/13/21 Rx polyethylene glycol 3350 17 17 g PO DAILY 08/31/21 10/13/21 History gram/dose oral powder (Miralax) Patient History Medical History Anal fissure Atrial fibrillation Bradycardia Chronic diastolic CHF (congestive heart failure) 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 Diverticular disease Dyslipidemia Elevated bilirubin Generalized osteoarthritis Hypertension Ischemic colitis Mitral regurgitation Pulmonary hypertension Sensorineural hearing loss of both ears Syncope and collapse Tricuspid regurgitation Surgical History H/O colonoscopy History of incision and drainage perirectal abscess Family History Father Brain tumor Mother Macular degeneration Denies family history of Ovarian cancer Prostate cancer Myocardial infarction Breast cancer Lung cancer Colorectal cancer Stroke Social History Smoking Status: Former smoker Tobacco Type: Cigarettes Age Started Using Tobacco: 15; Age Quit Using Tobacco: 32; packs per day: 1; Years Smoked: 18; Cigarettes Per Day: 20 to 40 unfiltered; Number of Years Since Quit: 40; Second Hand Exposure: No; Hx Alcohol Use: Yes Alcohol type: hard liquor Alcohol Intake Frequency: 2-3 x/Week Alcohol Intake Frequency Comment: one a day Hx Substance Use: No Preferred Language: Welsh Visual Impairment: Limited Hearing Ability: Normal marital status: Current Living Situation: Spouse current occupational status: retired How many Children do You have: 2 Feels Safe at Home: Yes Childhood Exposure to Second-Hand Smoke: Yes (parents did ) caffeine: No Dental Care, Regularly: Yes Physical Activity Frequency: Does not Exercise Physical Activity Frequency Comment: doesn't because of hip Seatbelt Use: always Sunscreen Use: Yes Do you think of yourself as: straight/heterosexual Review of Systems Review of Systems: All systems reviewed & are unremarkable except as noted in HPI & below Physical Exam Constitutional: WD/WN, vitals as above Neck: trachea midline, no thyromegaly Respiratory: normal respiratory effort; no respiratory distress and no labored breathing Cardiovascular: Rate/Rhythm: regular rate Gastrointestinal (Abdomen): Inspection/Auscultation: abdomen normal to inspection; abdomen not distended Percussion/Palpation: abdomen soft; abdomen nontender, no guarding and abdomen not rigid Musculoskeletal: Extremities: no cyanosis and no clubbing Skin: no rashes, warm and dry Psychiatric: A+Ox3, euthymic affect Results & Data ([facility]) Vital Signs (Past 12 Hours) Vital Signs Temp Pulse Pulse Resp BP Pulse Ox O2 Del Method 11/11/21 08:00 118 H 16 118/67 99 11/11/21 06:22 57 L 22 145/59 H 99 Room Air 11/11/21 04:22 97 Room Air 11/11/21 03:49 61 18 139/75 11/11/21 03:28 36.9 C 73 18 99 Room Air Laboratory Results 11/11/21 11/11/21 11/11/21 Range/Units 06:14 06:14 06:14 WBC (4.8-10.8) K/ul RBC (4.63-6.08) M/uL Hgb (14.0-18.0) g/dl Hct (40.1-51.0) % MCV (80.0-100.0) fL MCH (25.0-34.0) pg MCHC (32.0-36.0) g/dL RDW Std Deviation (36.4-46.3) fL RDW Coeff of Loretta (11.5-14.5) % Plt Count (130-400) K/uL MPV (9.4-12.4) fL Immature Gran % (Auto) % Neut % (Auto) % Lymph % (Auto) % [place] % (Auto) % Eos % (Auto) % Baso % (Auto) % Neut # (Auto) (1.4-6.5) K/uL Lymph # (Auto) (1.2-3.4) K/uL [place] # (Auto) (0.24-0.82) K/uL Eos # (Auto) (0-0.50) K/uL Baso # (Auto) (0-0.2) K/uL Immature Gran # (Auto) (0.00-0.02) K/uL Sodium (136-145) mmol/L Potassium (3.5-5.1) mmol/L Chloride (98-107) mmol/L Carbon Dioxide (21-32) mmol/L Anion Gap (3-11) BUN (6-23) mg/dl Creatinine (0.6-1.4) mg/dl Est Cr Clr Drug Dosing ml/min Est GFR ( Amer) ml/min Est GFR (Non-Af Amer) ml/min BUN/Creatinine Ratio (10-20) Glucose (70-99(Fasting)) mg/dl Calcium (8.5-10.1) mg/dl Total Bilirubin (0.2-1.0) mg/dl Direct Bilirubin 0.5 H (0-0.2) mg/dl AST (13-39) U/L ALT (7-52) U/L Alkaline Phosphatase (34-104) U/L Troponin I High Sens 38.0 H (0-20) pg/ml Total Protein (6.0-8.3) gm/dl Albumin (3.4-5.0) gm/dl Globulin (2.5-4.0) gm/dl Albumin/Globulin Ratio (0.9-2) Lipase (11-82) U/L Urine Color Urine Appearance (Clear) Urine pH (4.5-7.5) Ur Specific [place] (1.000-1.030) Urine Protein (Negative) Urine Glucose (UA) (Negative) Urine Ketones (Negative) Urine Blood (Negative) Urine Nitrite (Negative) Urine Bilirubin (Negative) Urine Urobilinogen (Negative) Ur Leukocyte Esterase (Negative) SARS-CoV-2, RNA, NAAT NEGATIVE (NEGATIVE) 11/11/21 11/11/21 11/11/21 Range/Units 04:23 04:20 04:20 WBC 5.88 (4.8-10.8) K/ul RBC 4.33 L (4.63-6.08) M/uL Hgb 14.7 (14.0-18.0) g/dl Hct 42.3 (40.1-51.0) % MCV 97.7 (80.0-100.0) fL MCH 33.9 (25.0-34.0) pg MCHC 34.8 (32.0-36.0) g/dL RDW Std Deviation 48.0 H (36.4-46.3) fL RDW Coeff of Loretta 13.3 (11.5-14.5) % Plt Count 157 (130-400) K/uL MPV 10.9 (9.4-12.4) fL Immature Gran % (Auto) 0.3 % Neut % (Auto) 63.7 % Lymph % (Auto) 25.7 % [place] % (Auto) 8.3 % Eos % (Auto) 1.7 % Baso % (Auto) 0.3 % Neut # (Auto) 3.74 (1.4-6.5) K/uL Lymph # (Auto) 1.51 (1.2-3.4) K/uL [place] # (Auto) 0.49 (0.24-0.82) K/uL Eos # (Auto) 0.10 (0-0.50) K/uL Baso # (Auto) 0.02 (0-0.2) K/uL Immature Gran # (Auto) 0.02 (0.00-0.02) K/uL Sodium 139 (136-145) mmol/L Potassium 4.0 (3.5-5.1) mmol/L Chloride 105 (98-107) mmol/L Carbon Dioxide 27 (21-32) mmol/L Anion Gap 7 (3-11) BUN 28 H (6-23) mg/dl Creatinine 1.07 (0.6-1.4) mg/dl Est Cr Clr Drug Dosing 48.4 ml/min Est GFR ( Amer) 77.2 ml/min Est GFR (Non-Af Amer) 66.6 ml/min BUN/Creatinine Ratio 26.2 H (10-20) Glucose 103 H (70-99(Fasting)) mg/dl Calcium 9.4 (8.5-10.1) mg/dl Total Bilirubin 3.2 H (0.2-1.0) mg/dl Direct Bilirubin (0-0.2) mg/dl AST 21 (13-39) U/L ALT 17 (7-52) U/L Alkaline Phosphatase 64 (34-104) U/L Troponin I High Sens 37.7 H (0-20) pg/ml Total Protein 6.9 (6.0-8.3) gm/dl Albumin 4.1 (3.4-5.0) gm/dl Globulin 2.8 (2.5-4.0) gm/dl Albumin/Globulin Ratio 1.5 (0.9-2) Lipase 21 (11-82) U/L Urine Color Yellow Urine Appearance Clear (Clear) Urine pH 6.0 (4.5-7.5) Ur Specific [place] 1.015 (1.000-1.030) Urine Protein Negative (Negative) Urine Glucose (UA) Negative (Negative) Urine Ketones Negative (Negative) Urine Blood Negative (Negative) Urine Nitrite Negative (Negative) Urine Bilirubin Negative (Negative) Urine Urobilinogen Negative (Negative) Ur Leukocyte Esterase Negative (Negative) SARS-CoV-2, RNA, NAAT (NEGATIVE) Diagnostic Findings ABDOMINAL ULTRASOUND, RIGHT UPPER QUADRANT HISTORY: Epigastric pain. COMPARISON: Abdomen and pelvis CT 12/16/2018. FINDINGS: Pancreas: The pancreatic head and tail are obscured by overlying bowel gas. The remaining portions of the pancreas are within normal limits. Liver: Unremarkable. Gallbladder: There is 1.6 cm gallstone. No gallbladder wall thickening. CBD: 4 mm. Right kidney: No hydronephrosis. A few right renal cysts measuring up to 4.1 cm. IMPRESSION: 1. Cholelithiasis. No gallbladder wall thickening. 2. Right renal cysts.
[2021-11-11 13:21] VITALS: BP 120/87; PULSE 56; O2SAT 97
--- NOTE | 2021-11-11 13:43 | Magnetic Resonance Report ---
MRCP CLINICAL HISTORY: Cholelithiasis. Right upper quadrant abdominal pain. COMPARISON STUDY: Abdominal ultrasound dated 11/11/2021. Abdominal CT dated 12/16/2018. TECHNIQUE: Abdominal MRCP is performed utilizing various T2 weighted sequences in the axial and coron al planes. IV contrast was not administered for this examination. 3-D reformats are created and asses sed. The examination is degraded by motion artifact. FINDINGS: There is a large gallstone. The gallbladder is otherwise normal in appearance, with no wall thickenin g or surrounding inflammation. There is no intra- or extrahepatic biliary ductal dilatation. The comm on bile duct measures up to 3 mm in diameter. No intraluminal filling defects are seen to suggest cho ledocholithiasis. The pancreatic duct is normal in caliber. The unenhanced liver, spleen, and adrenal glands are grossly normal. The pancreas is atrophic. The ki dneys demonstrate cortical atrophy and are without hydronephrosis. Bilateral renal cysts measure up t o 4 cm. The abdominal aorta is normal in caliber. There is no evidence of bowel obstruction. No abdom inal ascites is seen. The heart is enlarged. No pleural effusion is identified. No evidence of destru ctive bony lesion is seen. IMPRESSION: 1. Cholelithiasis without MRI evidence of acute cholecystitis. 2. Otherwise normal MRCP. Dictated: 11/11/2021 11:27 AM Transcribed: 11/11/2021 1:33 PM Elise [id number] [facility] Electronically signed by: Quang Gómez M.D. 11/11/2021 1:41 PM
--- NOTE | 2021-11-11 14:35 | Discharge Summary ---
Date of Service November 11, 2021 Admission HPI Per Admitting Provider Attending: Dr. Jacobsen Patient is a 75 yo male that presents with 2 weeks of midepigastric pain. He has a past medical history including chronic atrial fibrillation on anticoagulation, history of constipation on daily polyethylene glycol (MiraLAX), history of GERD. Patient presents with a 2-week history of midepigastric pain. He has been having regular bowel movements with no diarrhea. He does have history of chronic constipation that is well managed with daily MiraLAX. The patient awoke at 230 this morning with increased midepigastric pain. He had no fever or chills but decided to present to the emergency department for further evaluation. Ultrasound was performed and identified a solitary stone that appeared to be from his gallbladder. There is no common bile duct dilatation, no cholecystitis, no pancreatitis. Patient had no elevation in his white cells. No fever. No nausea or vomiting. At the time of my examination, the patient pain was completely resolved. Patient reports chronic atrial fibrillation that he follows Dr. Turner for. He is treated with metoprolol succinate (Toprol) 25 mg p.o. daily and is anticoagulated with rivaroxaban 20 mg p.o. daily. Patient reports no other acute complaints at this time. Patient has a 44-mluq-moma smoking history. 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 Lungs are clear to auscultation and appear unlabored Cardiac exam, Rhythm is regular.. No murmurs, rubs or gallops. Abdominal exam reveals normal bowel sounds, soft non tender, no masses Extremities are nonedematous and both pedal pulses are normal. Neurologic exam is alert and oriented, no focal loss of strength or sensation Skin is without bruises or rashes Psychologically is without concerns for anxiety or depression. Discharge Data Allergies Allergy/AdvReac Type Severity Reaction Status Date / Time amoxicillin AdvReac Diarrhea Verified 10/13/21 08:20 Consultations 11/11/21 07:20 ED Decision to Admit Stat 11/11/21 07:27 Consult Gastroenterology Stat 11/11/21 10:01 Consult General Surgery Routine Ordered Studies 11/11/21 04:16 US GB [US gallbladder] Urgent 11/11/21 08:30 MRI MRCP [MR MRCP] Stat Hospital Course (1) Elevated bilirubin: Impression: This is a 75-year-old male that presents with 2 weeks of abdominal pain. He previously followed with Dr. Yanez but had altercation with him on the telephone and began following with [facility] gastroenterology. The shank stapler from [facility] that he was following no longer comes to [place] so he was unable to see him further. The patient reports that he awoke at about 2:30 in the morning this morning with increased midepigastric pain. He had no nausea or vomiting. He and his decided to present to the emergency department where the patient was found to have elevated total bilirubin of 3.5. Review of the labs show that the patient has had an elevated total bilirubin of 2.1 or higher since about 2018. This suggest the possibility of Gilbert's disease. Patient will be admitted for MRCP, gastroenterology consult and possible HIDA scan. Elevated total bilirubin: * Suspect Gilbert's syndrome due to chronically elevated total bilirubin * No elevated white count. No fever. Ultrasound shows no evidence of cholecystitis or pancreatitis. There is no dilatation of the common bile duct. There is however evidence of a single stone in the gallbladder. * MRCP is read as normal with cholelithiasis without evidence of cholecystitis * Gastroenterology consulted. Surgery consulted. Lala recommending aggressive interventional procedures (2) Atrial fibrillation: * Patient with permanent atrial fibrillation on Toprol-XL and anticoagulated with Eliquis * Follows with Dr. Turner from [facility] cardiology (3) Chronic diastolic CHF (congestive heart failure): * No evidence of heart failure at this time (4) Anticoagulant long-term use: * Chronically anticoagulated for atrial fibrillation under the direction of Dr. Turner from [facility] cardiology (5) Constipation: * Patient is followed Dr. Yanez in the past and is currently receiving MiraLAX daily * Home dose is listed as 17 g daily however patient reports that he only takes 8.5 g/day (half packet) (6) Hypertension: * Continue metoprolol succinate 25 mg daily * Monitor vital signs per protocol and treat hypertension as needed Total Time Total Time Spent Total Time Spent (In Minutes): It required less than 30 minutes to prepare this patient for discharge Discharge Plan Discharge Items Patient Disposition: Home - Self-Care Reason For Visit: ELEVATED BILIRUBIN, CHOLELETHIASIS Discharge Diagnosis: elevated bilirubin abdominal pain Activity: Resume your previous activity Non-emergency contact: Primary Care Provider Call non-emergency contact if: your symptoms worsen Follow-up/Referrals: Calin Padgett, [Primary Care Provider] - Diet: Low Fat Addtl Attending Provider Instructions: please follow up with your primary care provider to have Gastroenterology referrral Pending Studies at Discharge: No Stand-Alone Forms: My [employer], Smoking Cessation Medications and DC Order Prescriptions: New famotidine [Pepcid] 20 mg tablet 20 mg PO BID 42 Days Qty: 84 4RF Continued Xarelto 20 mg tablet 20 mg PO QAM Qty: 90 3RF metoprolol succinate [Toprol XL] 25 mg tablet extended release 24 hr 25 mg PO QAM Qty: 90 3RF Rx Instructions: BRAND NAME ONLY TOPROL XL polyethylene glycol 3350 [Miralax] 17 gram/dose powder 17 g PO DAILY diltiazem transdermal .2-3 times daily PRN multivitamin with minerals Tablet 1 tab PO BID Rx Instructions: [facility] Discharge Orders: Discharge Order (Routine); Ordered 11/11/21 Ordered By: Valdo Duarte/Other Patient Handouts: Communicating About Pain Admission Data Admit Date/Time: 11/11/21 07:27 Attending Provider: Valdo Jacobsen Admit Provider: Valdo Jacobsen Primary Care Provider: Calin Padgett Other Providers: Ricky Alvarado ; Sara Davis ; Stephanie Mohan ; Elijah Yanez ; Darrel Mallory ; Jayda Mancera ; David Fleming Other Interventions: Discharge Summary Assessment (RN) Last Done: 11/11/21 14:00 Coding Level of Care Code D/C DAY MANAGEMENT <30 MINS Diagnoses Elevated bilirubin R17 Atrial fibrillation I48.91 Chronic diastolic CHF (congestive heart failure) I50.32 Anticoagulant long-term use Z79.01 Constipation K59.00 Hypertension I10
--- NOTE | 2021-11-11 20:50 | Emergency Department Note ---
Impression & Plan Abdominal pain, epigastric, Elevated bilirubin, Cholelithiasis ED Provider Note CHIEF COMPLAINT: Abd pain HISTORY OF PRESENT ILLNESS: This 75 yo male patient presents to the emergency department with complaint of severe epigastric abdominal pain. The patient states this has been an ongoing situation for the last several weeks. He was put Pepcid by his automatic wheel line operator but has not started this medication as it was not cleared by cardiology yet. He believes the pain is not related to e xertion, no SOB. Patient states the pain became severe tonight and he became concerned, seeking out medical evaluation. Patient denies any vomiting, fevers or back pain. Patient is anticoagulated with rivaroxaban history of atrial fibrillation. REVIEW OF SYSTEMS: A review of systems was performed with positives and pertinent negatives listed in the history of present illness. 10 systems were reviewed and are otherwise negative. ALLERGIES: see below MEDICATIONS: see below PMH: see below SOCIAL HISTORY: see below DDx: Cardiac ischemia, aortic dissection, pulmonary embolism, pneumothorax, pneumonia, pericarditis, myocarditis, esophageal rupture, GERD, cholecystitis, pancreatitis, musculoskeletal, as well as other pathologies. PHYSICAL EXAM: Vital signs reviewed. General: Well-appearing 75 yo male, in no significant distress. HEENT: No scleral icterus, PERRLA, neck supple. Atraumatic. Cardiovascular: Irregular and bradycardic. Pulmonary: Clear to auscultation bilaterally, normal work of breathing. Abdomen: Soft, mild epigastric tenderness, no rebound, no guarding, nondi stended, positive bowel sounds. Musculoskeletal: Atraumatic, no peripheral edema. No CVA tenderness bilaterally Neurologic: Patient awake alert and oriented x 3 Skin: Warm, dry, no rash EMERGENCY DEPARTMENT COURSE/MDM: Patient was evaluated and appeared to be in no significant distress. IV access was obtained and laboratory work was drawn. Laboratory work reveals an elevated total bilirubin at 3.2 with an elevated high-sensitivity troponin at 37.7. Ultrasound the right upper quadrant was performed and reveals cholelithiasis with no evidence of cholecystitis. Patient was hydrated with normal saline solution. Given his ongoing epigastric discomfort and abnormal laboratory work, patient will be evaluated by the hospitalist service for further evaluation and management. Great deal of time was spent at the bedside explaining to the patient the possibilities of ERCP, cholecystectomy and follow-up with gastroenterology. Further cardiac evaluation is also possible. The patient expressed understanding and agreed. MONITORING: An order for cardiac monitoring was placed and the patient is noted to be in a atrial flutter at 57 beats per minute. RADIOLOGY: US RUQ: Impression: There is cholelithiasis without evidence of acute cholecystitis. No biliary ductal dilatation. No evidence of right hydronephrosis. Normal pancreas. Radiologist: Magno Kaur MD Study ready at 05:11 and initial results transmitted at 05:34 EKG: Atrial flutter with variable AV block 52 bpm, left axis deviation, low LVH with QRS widening and repolarization abnormality. Old anterior septal infarct. 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 Diverticular disease Dyslipidemia Elevated bilirubin Generalized osteoarthritis Hypertension Ischemic colitis Mitral regurgitation Pulmonary hypertension Sensorineural hearing loss of both ears Syncope and collapse Tricuspid regurgitation Surgical History H/O colonoscopy History of incision and drainage perirectal abscess Family History Father Brain tumor Mother Macular degeneration Denies family history of Ovarian cancer Prostate cancer Myocardial infarction Breast cancer Lung cancer Colorectal cancer Stroke Social History Smoking Status: Unknown if ever smoked Tobacco Type: Cigarettes Age Started Using Tobacco: 15; Age Quit Using Tobacco: 32; packs per day: 1; Years Smoked: 18; Cigarettes Per Day: 20 to 40 unfiltered; Number of Years Since Quit: 40; Second Hand Exposure: No; Hx Alcohol Use: Yes Alcohol type: hard liquor Alcohol Intake Frequency: 2-3 x/Week Alcohol Intake Frequency Comment: one a day Hx Substance Use: No Preferred Language: Italian Visual Impairment: Limited Hearing Ability: Normal Beliefs That Will Affect Care: None marital status: Current Living Situation: Spouse current occupational status: retired How many Children do You have: 2 Feels Safe at Home: Yes Childhood Exposure to Second-Hand Smoke: Yes (parents did ) caffeine: No Dental Care, Regularly: Yes Physical Activity Frequency: Does not Exercise Physical Activity Frequency Comment: doesn't because of hip Seatbelt Use: always Sunscreen Use: Yes Do you think of yourself as: straight/heterosexual Allergies Allergies Allergy/AdvReac Type Severity Reaction Status Date / Time clavulanate Allergy Uncoded 11/16/21 12:47 Home Meds Home Medications Medication Instructions Recorded Confirmed diltiazem transdermal .2-3 times daily PRN 10/19/20 10/13/21 multivitamin with minerals 2 tab PO BID 11/16/21 11/16/21 polyethylene glycol 3350 17 8.5 g PO DAILY 11/16/21 11/16/21 gram/dose oral powder (Miralax) Previous Rx's Medication Instructions Recorded metoprolol succinate 25 mg 25 mg PO QAM #90 tabs 05/21/21 tablet,extended release 24 hr (Toprol XL) rivaroxaban 20 mg tablet (Xarelto) 20 mg PO QAM #90 tabs 05/21/21 famotidine 20 mg tablet (Pepcid) 20 mg PO BID 6 weeks #84 tabs 11/11/21 Results & Data (ED) Vital Signs Vital Signs - 24 hr 11/11/21 03:28 11/11/21 03:49 11/11/21 04:22 Temperature 36.9 C Temperature Source Temporal Artery Scan Pulse Rate 73 Pulse Rate [Finger] 61 Pulse Rhythm Regular Pulse Rhythm [Finger] Regular Pulse Strength Normal Pulse Strength [Finger] Normal Respiratory Rate 18 18 Respiratory Effort / Characteristics Non-Labored Spontaneous Non-Labored Spontaneous Respiratory Depth Normal Normal Respiratory Pattern Regular Blood Pressure [Right Arm] 139/75 Blood Pressure Mean [Right Arm] 96 Blood Pressure Position Sitting Blood Pressure Position [Right Arm] Sitting Pulse Oximetry 99 97 Oxygen Delivery Method Room Air Room Air Sepsis Recent Fever Within 48 Hours No Sepsis New/Unexplained Change in Mental Status N/A Sepsis Action Taken by Nursing No Action Required 11/11/21 06:22 Temperature Temperature Source Pulse Rate Pulse Rate [Finger] 57 L Pulse Rhythm Pulse Rhythm [Finger] Regular Pulse Strength Pulse Strength [Finger] Normal Respiratory Rate 22 Respiratory Effort / Characteristics Non-Labored Spontaneous Respiratory Depth Normal Respiratory Pattern Regular Blood Pressure [Right Arm] 145/59 H Blood Pressure Mean [Right Arm] 87 Blood Pressure Position Blood Pressure Position [Right Arm] Sitting Pulse Oximetry 99 Oxygen Delivery Method Room Air Sepsis Recent Fever Within 48 Hours Sepsis New/Unexplained Change in Mental Status Sepsis Action Taken by [facility] Medications Current Medication List: was personally reviewed by me Laboratory Data Attestation: I reviewed the patient's lab results. Result diagrams: 11/11/21 04:20 11/11/21 04:20 Lab Results 11/11/21 11/11/21 11/11/21 Range/Units 04:20 04:20 04:23 WBC 5.88 (4.8-10.8) K/ul RBC 4.33 L (4.63-6.08) M/uL Hgb 14.7 (14.0-18.0) g/dl Hct 42.3 (40.1-51.0) % MCV 97.7 (80.0-100.0) fL MCH 33.9 (25.0-34.0) pg MCHC 34.8 (32.0-36.0) g/dL RDW Std Deviation 48.0 H (36.4-46.3) fL RDW Coeff of Loretta 13.3 (11.5-14.5) % Plt Count 157 (130-400) K/uL MPV 10.9 (9.4-12.4) fL Immature Gran % (Auto) 0.3 % Neut % (Auto) 63.7 % Lymph % (Auto) 25.7 % [place] % (Auto) 8.3 % Eos % (Auto) 1.7 % Baso % (Auto) 0.3 % Neut # (Auto) 3.74 (1.4-6.5) K/uL Lymph # (Auto) 1.51 (1.2-3.4) K/uL [place] # (Auto) 0.49 (0.24-0.82) K/uL Eos # (Auto) 0.10 (0-0.50) K/uL Baso # (Auto) 0.02 (0-0.2) K/uL Immature Gran # (Auto) 0.02 (0.00-0.02) K/uL Sodium 139 (136-145) mmol/L Potassium 4.0 (3.5-5.1) mmol/L Chloride 105 (98-107) mmol/L Carbon Dioxide 27 (21-32) mmol/L Anion Gap 7 (3-11) BUN 28 H (6-23) mg/dl Creatinine 1.07 (0.6-1.4) mg/dl Est Cr Clr Drug Dosing 48.4 ml/min Est GFR ( Amer) 77.2 ml/min Est GFR (Non-Af Amer) 66.6 ml/min BUN/Creatinine Ratio 26.2 H (10-20) Glucose 103 H (70-99(Fasting)) mg/dl Calcium 9.4 (8.5-10.1) mg/dl Total Bilirubin 3.2 H (0.2-1.0) mg/dl Direct Bilirubin (0-0.2) mg/dl AST 21 (13-39) U/L ALT 17 (7-52) U/L Alkaline Phosphatase 64 (34-104) U/L Troponin I High Sens 37.7 H (0-20) pg/ml Total Protein 6.9 (6.0-8.3) gm/dl Albumin 4.1 (3.4-5.0) gm/dl Globulin 2.8 (2.5-4.0) gm/dl Albumin/Globulin Ratio 1.5 (0.9-2) Lipase 21 (11-82) U/L Urine Color Yellow Urine Appearance Clear (Clear) Urine pH 6.0 (4.5-7.5) Ur Specific [place] 1.015 (1.000-1.030) Urine Protein Negative (Negative) Urine Glucose (UA) Negative (Negative) Urine Ketones Negative (Negative) Urine Blood Negative (Negative) Urine Nitrite Negative (Negative) Urine Bilirubin Negative (Negative) Urine Urobilinogen Negative (Negative) Ur Leukocyte Esterase Negative (Negative) SARS-CoV-2, RNA, NAAT (NEGATIVE) 11/11/21 11/11/21 11/11/21 Range/Units 06:14 06:14 06:14 WBC (4.8-10.8) K/ul RBC (4.63-6.08) M/uL Hgb (14.0-18.0) g/dl Hct (40.1-51.0) % MCV (80.0-100.0) fL MCH (25.0-34.0) pg MCHC (32.0-36.0) g/dL RDW Std Deviation (36.4-46.3) fL RDW Coeff of Loretta (11.5-14.5) % Plt Count (130-400) K/uL MPV (9.4-12.4) fL Immature Gran % (Auto) % Neut % (Auto) % Lymph % (Auto) % [place] % (Auto) % Eos % (Auto) % Baso % (Auto) % Neut # (Auto) (1.4-6.5) K/uL Lymph # (Auto) (1.2-3.4) K/uL [place] # (Auto) (0.24-0.82) K/uL Eos # (Auto) (0-0.50) K/uL Baso # (Auto) (0-0.2) K/uL Immature Gran # (Auto) (0.00-0.02) K/uL Sodium (136-145) mmol/L Potassium (3.5-5.1) mmol/L Chloride (98-107) mmol/L Carbon Dioxide (21-32) mmol/L Anion Gap (3-11) BUN (6-23) mg/dl Creatinine (0.6-1.4) mg/dl Est Cr Clr Drug Dosing ml/min Est GFR ( Amer) ml/min Est GFR (Non-Af Amer) ml/min BUN/Creatinine Ratio (10-20) Glucose (70-99(Fasting)) mg/dl Calcium (8.5-10.1) mg/dl Total Bilirubin (0.2-1.0) mg/dl Direct Bilirubin 0.5 H (0-0.2) mg/dl AST (13-39) U/L ALT (7-52) U/L Alkaline Phosphatase (34-104) U/L Troponin I High Sens 38.0 H (0-20) pg/ml Total Protein (6.0-8.3) gm/dl Albumin (3.4-5.0) gm/dl Globulin (2.5-4.0) gm/dl Albumin/Globulin Ratio (0.9-2) Lipase (11-82) U/L Urine Color Urine Appearance (Clear) Urine pH (4.5-7.5) Ur Specific [place] (1.000-1.030) Urine Protein (Negative) Urine Glucose (UA) (Negative) Urine Ketones (Negative) Urine Blood (Negative) Urine Nitrite (Negative) Urine Bilirubin (Negative) Urine Urobilinogen (Negative) Ur Leukocyte Esterase (Negative) SARS-CoV-2, RNA, NAAT NEGATIVE (NEGATIVE) Administered Medications Discontinued Medications Sodium Chloride (Nss 1000ml) 1,000 mls @ 125 mls/hr IV .Q8H STA Stop: 11/11/21 12:07 Last Admin: 11/11/21 05:17 Dose: 125 mls/hr Documented By: DONNA Sodium Chloride (Nss 1000ml) 1,000 mls @ 125 mls/hr IV .Q8H KIT Stop: 12/11/21 10:00 Last Admin: 11/11/21 13:00 Dose: 125 mls/hr Documented By: JOHN Imaging Data Radiologist's Impression: Gallbladder Ultrasound 11/11/21 04:16 ABDOMINAL ULTRASOUND, RIGHT UPPER QUADRANT HISTORY: Epigastric pain. COMPARISON: Abdomen and pelvis CT 12/16/2018. FINDINGS: Pancreas: The pancreatic head and tail are obscured by overlying bowel gas. The remaining portions of the pancreas are within normal limits. Liver: Unremarkable. Gallbladder: There is 1.6 cm gallstone. No gallbladder wall thickening. CBD: 4 mm. Right kidney: No hydronephrosis. A few right renal cysts measuring up to 4.1 cm. IMPRESSION: 1. Cholelithiasis. No gallbladder wall thickening. 2. Right renal cysts. ACT 112: Negative or not required by law. Electronically signed by: Tomas Sage M.D. 11/11/2021 8:14 AM Blood Pressure Blood Pressure Findings: Normal blood pressure Blood Pressure Disposition: did not require urgent referral Discharge Plan Visit Data Chief Complaint: Abdominal Pain Stated Complaint: SEVERE ABDOMINAL PAIN ED Provider: Bethanie Quintero Discharge Problem: Abdominal pain, epigastric, Elevated bilirubin, Cholelithiasis Patient Disposition: Admitted As Inpatient Discharge Instructions Interventions: ED Discharge Assessment Last Done: 11/11/21 09:43
== END 2021-11-11 14:00 | disposition home or self-care (01) | DRG 442 ==
LOC: ED 03:25 → EDINP 07:27
DX: E80.4 Gilbert syndrome; K80.20 Calculus of gallbladder without cholecystitis without obstruction; Z79.899 Other long term (current) drug therapy; K59.09 Other constipation; Z88.0 Allergy status to penicillin; I11.0 Hypertensive heart disease with heart failure; K20.90 Esophagitis, unspecified without bleeding; Z79.01 Long term (current) use of anticoagulants; I50.32 Chronic diastolic (congestive) heart failure; K29.70 Gastritis, unspecified, without bleeding; I48.21 Permanent atrial fibrillation; Z87.891 Personal history of nicotine dependence

== ENCOUNTER 2022-10-14 15:31 | Observation (INO) ==
[2022-10-14 16:29] LABS: Hematocrit (blood only) 35.4 % (42.0-52.0); Mean Corpuscular Hemoglobin 32.2 pg (25.0-34.0); Mean Corpuscular Hgb Conc 33.9 g/dL (32.0-36.0); Mean Corpuscular Volume 94.9 fL (80.0-100.0); Mean Platelet Volume 10.7 fL (9.4-12.4); Platelet Count 177 K/uL (130-400); RDW Coefficient of Variation 14.5 % (11.5-14.5); RDW Standard Deviation 49.3 fL (36.4-46.3); Red Blood Count 3.73 M/uL (4.70-6.10); White Blood Count 6.87 K/ul (4.8-10.8)
[2022-10-14] MEDS ORDERED: SODIUM CHLORIDE 0.9% 1000ML 1,000 ML IV ONE (16:39)
[2022-10-14 16:41] LABS: Albumin Globulin Ratio 1.5 (0.9-2); Albumin Level 4.4 gm/dl (3.4-5.0); BUN Creatinine Ratio 33.3 (10-20); Bilirubin,Total 2.5 mg/dl (0.2-1.0); Calcium 9.7 mg/dl (8.6-10.3); Creatinine Clr Calc Pharmacy 47.7 ml/min; Est GFR (African American) 73.3 ml/min; Est GFR (Non-African American) 63.3 ml/min; Potassium 4.4 mmol/L (3.5-5.1); Total Protein 7.4 gm/dl (6.0-8.3)
[2022-10-14 16:48] LABS: Troponin I High Sensitivity 39.6 pg/ml (0-20)
[2022-10-14 16:54] LABS: INR 1.5 (0.9-1.1); Partial Thromboplastin Ratio 1.3; Partial Thromboplastin Time 37.2 Seconds (21.0-31.0); Prothrombin Time 16.2 Seconds (9.0-12.0)
[2022-10-14] MEDS ORDERED: IOVERSOL 350 MG 125mL Prefilled Syringe IV ONE (17:06)
--- NOTE | 2022-10-14 17:06 | Emergency Department Note ---
Impression & Plan Acute lower GI bleeding, Anemia, Elevated troponin I level ED Provider Note NAME: PAUL CHAUDHRY AGE: 76 SEX: M : 1945 ARRIVES VIA: Walk-In INFORMANT: Patient, ED PROVIDER(S): Kev Alexander DO CHIEF COMPLAINT: Rectal bleeding HPI: The patient is a 76-year-old male who has a history of atrial fibrillation and uses oral anticoagulation who presented to the emergency department for rectal bleeding. The patient has had 2 days of rectal bleeding. He denies having any nausea or vomiting. He denies having any abdominal pain. He does have a history of ischemic colitis in the past. He has been compliant with his outpatient medications otherwise. ROS: See above HPI for pertinent positives & negatives. A total of 10 systems reviewed and were otherwise negative. PAST MEDICAL HISTORY: See Below PAST SURGICAL HISTORY: See Below FAMILY HISTORY: See Below SOCIAL HISTORY: See Below HOME MEDICATIONS: See Below ALLERGIES: See Below VITALS: See Below PHYSICAL EXAMINATION: GENERAL: Patient is awake alert in no acute distress patient is resting comfortably and showing no signs of anxiety EYES: The conjunctivae are clear. The pupils are round and reactive. EARS, NOSE, MOUTH AND THROAT: The nose is without any evidence of any deformity. Mucous membranes are moist. Tongue is midline. NECK: The neck is nontender and supple. RESPIRATORY: Normal respiratory effort is noted there is no evidence of wheezing rhonchi or rales CARDIOVASCULAR: Irregular heart sounds were noted to auscultation. There is no definite murmur. GASTROINTESTINAL: The abdomen is soft. Abdomen is nontender. Rectal exam rev ealed gross blood per rectum. MUSCULOSKELETAL/EXTREMITIES: There is no evidence of gross deformity full range of motion is noted in the hips and shoulders. SKIN: There is no obvious evidence of any rash. There are no petechiae, pallor or cyanosis noted. NEUROLOGIC: Patient is awake alert and oriented x3. Gait was steady. MEDICAL DECISION MAKING: The patient is a 76-year-old male who presented to the emergency department for rectal bleeding. The patient did not have a surgical abdomen on physical exam. The patient's hemoglobin did drop compared to previous. He does take blood thinners. I discussed the patient's laboratory and radiographic studies with him. Because of his history of ischemic colitis a CT angiography of the abdomen was obtained. This does not appear to be consistent with ischemia but there was an area that could be consistent with an acute bleed. I discussed his condition with the on-call metal baler as well as the on-call [facility] hospitalist. Given the patient's comorbidities as well as findings on CT he would be a better candidate for inpatient management. Triage Nursing notes reviewed. Prior medical records reviewed Vital Signs: reviewed and remarkable for bradycardia. Differential diagnosis: Diverticulosis, AVM, coagulopathy, colitis, inflammatory bowel disease, malignancy, Myra-Reyez tear, esophagitis, peptic ulcer disease, variceal bleed, gastritis, epistaxis, fissure, hemorrhoids, as well as other pathologies. ER treatment provided: See below Diagnostics interpreted by me: ECG: EKG was obtained in the emergency department. My interpretation is atrial fibrillation at 50 bpm. LVH was suggested by voltage criteria. Diffuse ST abnormalities were noted. This was compared to a tracing from January 31, 2022. No changes were noted Cardiac Monitoring: An order was placed for continuous cardiac monitoring. The monitor shows a rate of 58 bpm with sinus bradycardia. Laboratory studies: As stated above and show below. Imaging studies: See below. Radiographic imaging was reviewed by myself Consultation(s): I discussed this case with Dr. Sloan who is on for gastroenterology I discussed this case with Dr. 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 Diverticular disease Dyslipidemia Elevated bilirubin Generalized osteoarthritis Hypertension Ischemic colitis Mitral regurgitation Pulmonary hypertension Sensorineural hearing loss of both ears Syncope and collapse Tricuspid regurgitation Surgical History H/O colonoscopy 2021 Declines further Colonoscopy History of incision and drainage perirectal abscess Family History Father Brain tumor Mother Macular degeneration Denies family history of Ovarian cancer Prostate cancer Myocardial infarction Breast cancer Lung cancer Colorectal cancer Stroke Social History Smoking Status: Former smoker Tobacco Type: Cigarettes Age Started Using Tobacco: 15; Age Quit Using Tobacco: 32; packs per day: 1; Cigarettes Per Day: 20 to 40 unfiltered; Second Hand Exposure: No; Do You Dip or Chew Tobacco: No; Hx Alcohol Use: Yes Alcohol type: hard liquor Alcohol Intake Frequency: 2-3 x/Week Alcohol Intake Frequency Comment: one a day Hx Substance Use: No Preferred Language: Occitan Visual Impairment: Limited Hearing Ability: Normal Beliefs That Will Affect Care: None marital status: Current Living Situation: Spouse current occupational status: retired How many Children do You have: 2 Feels Safe at Home: Yes Childhood Exposure to Second-Hand Smoke: Yes (parents did ) Diet: low salt caffeine: No Dental Care, Regularly: Yes Physical Activity Frequency: Does not Exercise Physical Activity Frequency Comment: doesn't because of hip Seatbelt Use: always Sunscreen Use: No Do you think of yourself as: straight/heterosexual Assistive Devices: Cane, Glasses and Walker Allergies Allergies Allergy/AdvReac Type Severity Reaction Status Date / Time clavulanic acid AdvReac Intermediate Diarrhea Verified 10/14/22 17:09 Home Meds Home Medications Medication Instructions Recorded Confirmed Diltiazem 2% Rectal Ointment 1 1 bead OK DIRECTED PRN 09/06/22 10/14/22 tube ointment Hemorrhoids #1 tube zinc oxide 5 % topical cream 1 applic topical DIRECTED PRN 10/10/22 10/14/22 Hemorrhoids famotidine 10 mg tablet (Pepcid AC) 10 mg PO DAILY 10/14/22 10/14/22 [id number] 1 tab PO DAILY 10/14/22 10/14/22 tablet (Multivitamin 50 Plus tablet) Previous Rx's Medication Instructions Recorded metoprolol succinate 25 mg 12.5 mg PO DAILY #45 tabs 05/17/22 tablet,extended release 24 hr (Toprol XL) rivaroxaban 20 mg tablet (Xarelto) 20 mg PO QAM #90 tabs 05/17/22 Wheeled Walker #1 ea 07/04/22 Results & Data (ED) Vital Signs Vital Signs - 24 hr 10/14/22 15:48 10/14/22 16:17 10/14/22 15:55 Temperature 36.8 C Temperature Source Temporal Artery Scan Pulse Rate 62 63 Pulse Rate from SpO2 Sensor Respiratory Rate 20 Respiratory Effort / Characteristics Non-Labored Spontaneous Respiratory Depth Normal Blood Pressure 146/86 H Blood Pressure Mean 106 Pulse Oximetry 99 95 Oxygen Delivery Method Room Air Room Air Sepsis Recent Fever Within 48 Hours No Sepsis New/Unexplained Change in Mental Status N/A Sepsis Action Taken by Nursing No Action Required 10/14/22 16:14 10/14/22 16:20 10/14/22 16:30 Temperature Temperature Source Pulse Rate 62 59 L 55 L Pulse Rate from SpO2 Sensor 60 55 L 56 L Respiratory Rate 17 16 13 Respiratory Effort / Characteristics Respiratory Depth Blood Pressure Blood Pressure Mean Pulse Oximetry 100 100 98 Oxygen Delivery Method Sepsis Recent Fever Within 48 Hours Sepsis New/Unexplained Change in Mental Status Sepsis Action Taken by Nursing 10/14/22 16:31 10/14/22 16:31 10/14/22 16:40 Temperature Temperature Source Pulse Rate 61 59 L Pulse Rate from SpO2 Sensor 60 59 L Respiratory Rate 23 18 Respiratory Effort / Characteristics Respiratory Depth Blood Pressure 133/58 L Blood Pressure Mean 85 Pulse Oximetry 98 100 Oxygen Delivery Method Sepsis Recent Fever Within 48 Hours Sepsis New/Unexplained Change in Mental Status Sepsis Action Taken by Nursing 10/14/22 16:50 10/14/22 17:00 10/14/22 17:36 Temperature Temperature Source Pulse Rate 60 58 L 64 Pulse Rate from SpO2 Sensor 60 Respiratory Rate 17 12 21 Respiratory Effort / Characteristics Respiratory Depth Blood Pressure Blood Pressure Mean Pulse Oximetry 98 Oxygen Delivery Method Sepsis Recent Fever Within 48 Hours Sepsis New/Unexplained Change in Mental Status Sepsis Action Taken by Nursing 10/14/22 17:40 10/14/22 17:50 10/14/22 18:00 Temperature Temperature Source Pulse Rate 59 L 63 65 Pulse Rate from SpO2 Sensor 56 L 58 L 61 Respiratory Rate 16 20 23 Respiratory Effort / Characteristics Respiratory Depth Blood Pressure Blood Pressure Mean Pulse Oximetry 99 99 96 Oxygen Delivery Method Sepsis Recent Fever Within 48 Hours Sepsis New/Unexplained Change in Mental Status Sepsis Action Taken by Nursing 10/14/22 18:10 10/14/22 18:20 10/14/22 18:30 Temperature Temperature Source Pulse Rate 65 59 L 58 L Pulse Rate from SpO2 Sensor 63 58 L 56 L Respiratory Rate 19 15 22 Respiratory Effort / Characteristics Respiratory Depth Blood Pressure Blood Pressure Mean Pulse Oximetry 100 99 98 Oxygen Delivery Method Sepsis Recent Fever Within 48 Hours Sepsis New/Unexplained Change in Mental Status Sepsis Action Taken by Skilled Nursing Medications Current Medication List: was personally reviewed by me Laboratory Data Attestation: I reviewed the patient's lab results. 10/14/22 16:04 10/14/22 16:04 Lab Results 10/14/22 10/14/22 10/14/22 Range/Units 16:04 16:04 16:04 WBC 6.87 (4.8-10.8) K/ul RBC 3.73 L (4.70-6.10) M/uL Hgb 12.0 L (14.0-18.0) g/dl Hct 35.4 L (42.0-52.0) % MCV 94.9 (80.0-100.0) fL MCH 32.2 (25.0-34.0) pg MCHC 33.9 (32.0-36.0) g/dL RDW Std Deviation 49.3 H (36.4-46.3) fL RDW Coeff of Loretta 14.5 (11.5-14.5) % Plt Count 177 (130-400) K/uL MPV 10.7 (9.4-12.4) fL PT 16.2 H (9.0-12.0) Seconds INR 1.5 H (0.9-1.1) APTT 37.2 H (21.0-31.0) Seconds PTT Ratio 1.3 Sodium (136-145) mmol/L Potassium (3.5-5.1) mmol/L Chloride (98-107) mmol/L Carbon Dioxide (21-32) mmol/L Anion Gap (3-11) BUN (6-23) mg/dl Creatinine (0.6-1.4) mg/dl Est Cr Clr Drug Dosing ml/min Est GFR ( Amer) ml/min Est GFR (Non-Af Amer) ml/min BUN/Creatinine Ratio (10-20) Glucose (70-99(Fasting)) mg/dl Lactate (0.4-2.0) mmol/L Calcium (8.6-10.3) mg/dl Total Bilirubin (0.2-1.0) mg/dl AST (13-39) U/L ALT (7-52) U/L Alkaline Phosphatase (34-104) U/L Troponin I High Sens (0-20) pg/ml Total Protein (6.0-8.3) gm/dl Albumin (3.4-5.0) gm/dl Globulin (2.5-4.0) gm/dl Albumin/Globulin Ratio (0.9-2) Blood Type A Positive Antibody Screen NEGATIVE 10/14/22 10/14/22 Range/Units 16:04 16:53 WBC (4.8-10.8) K/ul RBC (4.70-6.10) M/uL Hgb (14.0-18.0) g/dl Hct (42.0-52.0) % MCV (80.0-100.0) fL MCH (25.0-34.0) pg MCHC (32.0-36.0) g/dL RDW Std Deviation (36.4-46.3) fL RDW Coeff of Loretta (11.5-14.5) % Plt Count (130-400) K/uL MPV (9.4-12.4) fL PT (9.0-12.0) Seconds INR (0.9-1.1) APTT (21.0-31.0) Seconds PTT Ratio Sodium 138 (136-145) mmol/L Potassium 4.4 (3.5-5.1) mmol/L Chloride 106 (98-107) mmol/L Carbon Dioxide 26 (21-32) mmol/L Anion Gap 6 (3-11) BUN 37 H (6-23) mg/dl Creatinine 1.11 (0.6-1.4) mg/dl Est Cr Clr Drug Dosing 47.7 ml/min Est GFR ( Amer) 73.3 ml/min Est GFR (Non-Af Amer) 63.3 ml/min BUN/Creatinine Ratio 33.3 H (10-20) Glucose 101 H (70-99(Fasting)) mg/dl Lactate 1.4 (0.4-2.0) mmol/L Calcium 9.7 (8.6-10.3) mg/dl Total Bilirubin 2.5 H (0.2-1.0) mg/dl AST 26 (13-39) U/L ALT 15 (7-52) U/L Alkaline Phosphatase 64 (34-104) U/L Troponin I High Sens 39.6 H (0-20) pg/ml Total Protein 7.4 (6.0-8.3) gm/dl Albumin 4.4 (3.4-5.0) gm/dl Globulin 3.0 (2.5-4.0) gm/dl Albumin/Globulin Ratio 1.5 (0.9-2) Blood Type Antibody Screen Administered Medications Discontinued Medications Sodium Chloride (Nss 1000ml) 1,000 mls @ 999 mls/hr IV .Q1H1M ONE Stop: 10/14/22 17:39 Last Infusion: 10/14/22 18:11 Dose: 0 mls/hr Documented By: Admin: 10/14/22 16:56 Dose: 999 mls/hr Documented By: ACC Ioversol (Ioversol 350 Mg 125ml Prefilled Syringe) 119 ml IV ONCE ONE Stop: 10/14/22 17:07 Last Admin: 10/14/22 17:07 Dose: 119 ml Documented By: EILEEN Imaging Data Attestation: I personally reviewed and interpreted this imaging study as follows: My Impression: CT of the abdomen angiography was obtained. My interpretation is no free air or signs of bowel obstruction, final report below. Radiologist's Impression: Abdomen/Pelvis CTA 10/14/22 16:43 CT ANGIOGRAM OF THE ABDOMEN AND PELVIS CLINICAL HISTORY: GI bleeding. COMPARISON STUDY: Abdominal CT dated 05/31/2022. TECHNIQUE: Following the IV administration of 119 cc of Optiray 350, CT angiogram of the abdomen and pelvis was performed from the lung bases the proximal femora. Images are reviewed in the axial, sagittal, and coronal planes. 3-D MIPS images are created and assessed. IV contrast was administered without complication. A dose lowering technique was utilized adhering to the principles of ALARA. CT DOSE: 723.86 mGy.cm FINDINGS: Lower chest: The heart is enlarged and without pericardial effusion. There are coronary artery calcifications. Intralobular septal thickening is noted at the lung bases. No airspace consolidation or pleural effusion is identified. A 4 mm right lower lobe pulmonary nodule on image #47 is new from previous. Liver: The contrast-enhanced liver is normal in size, contour, and attenuation. There is no intrahepatic biliary ductal dilatation. The main portal vein is grossly patent. Gallbladder: There are gallstones with no CT evidence of acute cholecystitis. Spleen: Normal in size and attenuation noting heterogeneous arterial phase enhancement. Pancreas: Moderately atrophic and grossly unremarkable. Adrenal glands: Nodular thickening of the adrenal glands are previous. Kidneys: The contrast enhanced kidneys are normal in size and without hydroneph rosis. The kidneys enhance symmetrically. A 4 mm nonobstructing calculus is seen in the right lower pole. Right renal cysts measure up to 4.8 cm. Additional subcentimeter cortical hypodensities also likely represent cysts but are too small for definitive catheterization. Abdominal aorta and iliac arteries: There is advanced atherosclerotic calcification of the abdominal aorta which is normal in caliber. The abdominal aorta is widely patent. No dissection is seen. Advanced atherosclerotic plaque and irregularity seen throughout the iliac arteries. The iliac vessels are patent bilaterally. Major branches of the abdominal aorta: The celiac trunk, superior mesenteric, and inferior mesenteric arteries are widely patent. There is a replaced hepatic artery which arises from the superior mesenteric artery. The splenic artery is patent. There is a single left renal artery and 2 right renal arteries. Renal arteries are widely patent bilaterally. Bowel: There is moderate to advanced colonic diverticulosis without CT evidence of acute diverticulitis. No bowel obstruction is seen. Moderately moderate fecal retention is noted throughout the colon. Question trace intraluminal contrast within the rectosigmoid colon on image #249. The appendix is well-visualized and normal. Peritoneum: There is no intraperitoneal free air or abdominal ascites. There is a fat-containing umbilical hernia. Lymphadenopathy: None. Pelvic viscera: The prostate gland is markedly enlarged and heterogeneous. The bladder wall is thickened/trabeculated indicating chronic outlet obstruction. There are bilateral inguinal hernias, right larger than left. The right A1 artery contains trace fluid and a small segment of bowel. Skeletal structures: The skeletal structures are osteopenic. There is moderate lumbosacral spondylosis. No destructive bony lesions are seen. Advanced arthritic change is seen in the right hip. Degenerative change and partial fusion is noted in the sacroiliac joints. IMPRESSION: 1. Normal CT angiogram of the abdominal aorta and its major branches noting advanced atherosclerotic plaque and irregularity. 2. Cardiomegaly. 3. No acute infectious or inflammatory findings are identified in the abdomen or pelvis. 4. Question a focus of intraluminal contrast within the rectosigmoid colon. A site of active GI bleeding is not excluded. 5. Moderate to advanced colonic diverticulosis without CT evidence of acute diverticulitis. 6. Marked prostatomegaly with evidence of chronic bladder outlet obstruction. 7. Right larger than left inguinal hernias. The right inguinal hernia contains a tiny segment of small bowel. 8. A 4 mm right lower lobe pulmonary nodule is new from previous. This is pathologically indeterminant, and a 3 month follow-up chest CT is recommended for reassessment and full evaluation of the thorax. 9. Right-sided nephrolithiasis. 10. Cholelithiasis. 11. Additional findings as above. ACT 112: Positive. There are findings on this exam that require communication between the performing entity and the patient following Patient Test Result Information Act ([place] Act 112) guidelines. Electronically signed by: Quang Gómez M.D. 10/14/2022 5:38 PM Discharge Plan Visit Data Chief Complaint: Illness Stated Complaint: BLOODY STOHL ED Provider: Kev Alexander Discharge Problem: Acute lower GI bleeding, Anemia, Elevated troponin I level Patient Disposition: Being Evaluated by Hospitalist Forms Stand Alone Forms: [facility] Prescriptions Prescriptions: No Action Xarelto 20 mg tablet 20 mg PO QAM Qty: 90 3RF metoprolol succinate [Toprol XL] 25 mg tablet extended release 24 hr 12.5 mg PO DAILY Qty: 45 3RF (DME) Wheeled Walker Misc See Rx Instructions .Route Qty: 1 0RF Rx Instructions: Wheeled walker dx hip pain zinc oxide 5 % cream 1 applic topical DIRECTED PRN (Reason: Hemorrhoids) Diltiazem 2% Rectal Ointment 1 tube ointment 1 bead OK DIRECTED PRN (Reason: Hemorrhoids) Qty: 1 famotidine [Pepcid AC] 10 mg Tablet 10 mg PO DAILY Multivitamin 50 Plus Tablet 1 tab PO DAILY Referrals Referrals: Calin Padgett DO [Primary Care Provider] -
--- NOTE | 2022-10-14 17:40 | CT Scan Report ---
CT ANGIOGRAM OF THE ABDOMEN AND PELVIS CLINICAL HISTORY: GI bleeding. COMPARISON STUDY: Abdominal CT dated 05/31/2022. TECHNIQUE: Following the IV administration of 119 cc of Optiray 350, CT angiogram of the abdomen and pelvis was performed from the lung bases the proximal femora. Images are reviewed in the axial, sagit donovan, and coronal planes. 3-D MIPS images are created and assessed. IV contrast was administered witho ut complication. A dose lowering technique was utilized adhering to the principles of ALARA. CT DOSE: 723.86 mGy.cm FINDINGS: Lower chest: The heart is enlarged and without pericardial effusion. There are coronary artery calcif ications. Intralobular septal thickening is noted at the lung bases. No airspace consolidation or ple ural effusion is identified. A 4 mm right lower lobe pulmonary nodule on image #47 is new from previo us. Liver: The contrast-enhanced liver is normal in size, contour, and attenuation. There is no intrahepa tic biliary ductal dilatation. The main portal vein is grossly patent. Gallbladder: There are gallstones with no CT evidence of acute cholecystitis. Spleen: Normal in size and attenuation noting heterogeneous arterial phase enhancement. Pancreas: Moderately atrophic and grossly unremarkable. Adrenal glands: Nodular thickening of the adrenal glands are previous. Kidneys: The contrast enhanced kidneys are normal in size and without hydronephrosis. The kidneys enh ance symmetrically. A 4 mm nonobstructing calculus is seen in the right lower pole. Right renal cysts measure up to 4.8 cm. Additional subcentimeter cortical hypodensities also likely represent cysts bu t are too small for definitive catheterization. Abdominal aorta and iliac arteries: There is advanced atherosclerotic calcification of the abdominal aorta which is normal in caliber. The abdominal aorta is widely patent. No dissection is seen. Advanc ed atherosclerotic plaque and irregularity seen throughout the iliac arteries. The iliac vessels are patent bilaterally. Major branches of the abdominal aorta: The celiac trunk, superior mesenteric, and inferior mesenteric arteries are widely patent. There is a replaced hepatic artery which arises from the superior mesent vanessa artery. The splenic artery is patent. There is a single left renal artery and 2 right renal bonifacio lyle. Renal arteries are widely patent bilaterally. Bowel: There is moderate to advanced colonic diverticulosis without CT evidence of acute diverticulit is. No bowel obstruction is seen. Moderately moderate fecal retention is noted throughout the colon. Question trace intraluminal contrast within the rectosigmoid colon on image #249. The appendix is we ll-visualized and normal. Peritoneum: There is no intraperitoneal free air or abdominal ascites. There is a fat-containing umbi lical hernia. Lymphadenopathy: None. Pelvic viscera: The prostate gland is markedly enlarged and heterogeneous. The bladder wall is thicke ev/trabeculated indicating chronic outlet obstruction. There are bilateral inguinal hernias, right l arger than left. The right A1 artery contains trace fluid and a small segment of bowel. Skeletal structures: The skeletal structures are osteopenic. There is moderate lumbosacral spondylosi s. No destructive bony lesions are seen. Advanced arthritic change is seen in the right hip. Degenera tive change and partial fusion is noted in the sacroiliac joints. IMPRESSION: 1. Normal CT angiogram of the abdominal aorta and its major branches noting advanced atherosclerotic plaque and irregularity. 2. Cardiomegaly. 3. No acute infectious or inflammatory findings are identified in the abdomen or pelvis. 4. Question a focus of intraluminal contrast within the rectosigmoid colon. A site of active GI bleed ing is not excluded. 5. Moderate to advanced colonic diverticulosis without CT evidence of acute diverticulitis. 6. Marked prostatomegaly with evidence of chronic bladder outlet obstruction. 7. Right larger than left inguinal hernias. The right inguinal hernia contains a tiny segment of smal l bowel. 8. A 4 mm right lower lobe pulmonary nodule is new from previous. This is pathologically indeterminan t, and a 3 month follow-up chest CT is recommended for reassessment and full evaluation of the thorax . 9. Right-sided nephrolithiasis. 10. Cholelithiasis. 11. Additional findings as above. ACT 112: Positive. There are findings on this exam that require communication between the performing entity and the patient following Patient Test Result Information Act ([place] Act 112) guidelines. Electronically signed by: Vanessa Gómez M.D. 10/14/2022 5:38 PM
--- NOTE | 2022-10-14 18:52 | History & Physical Report ---
Date of Service October 14, 2022 Assessment & Plan (1) Acute lower GI bleeding: Plan: Observation recommended due to possible ongoing active bleed on CT although symptomatimcally improving History of hemorrhoids and anal fissures Hold Xarelto Repeat H&H now and in the morning. Transfuse for Hgb < 7 Consult GI to see in am (2) Elevated troponin I level: Plan: Appears to be elevated each admission ? due to atrial flutter/fibrillation. Will repeat just to make sure stable. No chest pain or shortness of breath to suggest acute coronary syndrome (3) Atrial flutter: Plan: Hold Xarelto as above Continue rate control with metoprolol succinate 12.5mg PO daily (4) Abnormal CT of the abdomen: Plan: "A 4 mm right lower lobe pulmonary nodule is new from previous. This is pathologically indeterminant, and a 3 month follow-up chest CT is recommended for reassessment and full evaluation of the thorax." Plan VTE Prophylaxis - chemical contraindicated Diet - clear liquid Disposition - observation to med/surg Admission and Anticipated Discharge Date Admission Date: October 14, 2022 History of Present Illness Chief Complaint: Hematochezia Primary Care Provider: Calin Padgett DO Anders aRngel is a 76 year old male who presents to the ER due to hematochezia. 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 Reports two does of worsening rectal bleeding. No nausea, vomiting, abdominal pain. On Xarelto for atrial fibrillation and last took this morning. Has been using MiraLAX intermittently to help with constipation. Allergies Allergy/AdvReac Type Severity Reaction Status Date / Time clavulanic acid AdvReac Intermediate Diarrhea Verified 10/14/22 17:09 Home Medications Medication Instructions Recorded Confirmed Type metoprolol succinate 25 mg 12.5 mg PO DAILY #45 tabs 05/17/22 10/14/22 Rx tablet,extended release 24 hr (Toprol XL) rivaroxaban 20 mg tablet (Xarelto) 20 mg PO QAM #90 tabs 05/17/22 10/14/22 Rx Wheeled Walker #1 ea 07/04/22 10/10/22 Rx Diltiazem 2% Rectal Ointment 1 1 bead NE DIRECTED PRN 09/06/22 10/14/22 History tube ointment Hemorrhoids #1 tube zinc oxide 5 % topical cream 1 applic topical DIRECTED PRN 10/10/22 10/14/22 History Hemorrhoids famotidine 10 mg tablet (Pepcid AC) 10 mg PO DAILY 10/14/22 10/14/22 History reesbrdsbesz-zfxjtphh-fnrvak 1 tab PO DAILY 10/14/22 10/14/22 History tablet (Multivitamin 50 Plus tablet) Past Med/Surg History Medical History Anal fissure Atrial fibrillation Bradycardia Chronic diastolic CHF (congestive heart failure) 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 Diverticular disease Dyslipidemia Elevated bilirubin Generalized osteoarthritis Hypertension Ischemic colitis Mitral regurgitation Pulmonary hypertension Sensorineural hearing loss of both ears Syncope and collapse Tricuspid regurgitation Surgical History H/O colonoscopy 2021 Declines further Colonoscopy History of incision and drainage perirectal abscess Family History Father Brain tumor Mother Macular degeneration Denies family history of Ovarian cancer Prostate cancer Myocardial infarction Breast cancer Lung cancer Colorectal cancer Stroke Social History Smoking Status: Former smoker Tobacco Type: Cigarettes Age Started Using Tobacco: 15; Age Quit Using Tobacco: 32; packs per day: 1; Cigarettes Per Day: 10; Second Hand Exposure: No; Do You Dip or Chew Tobacco: No; Tobacco Cessation Education Requested by Patient: No Hx Alcohol Use: Yes Alcohol type: hard liquor Alcohol Intake Frequency: 2-3 x/Week Alcohol Intake Frequency Comment: one a day Hx Substance Use: No Preferred Language: Indonesian Communication Ability: Effective Visual Impairment: Limited Hearing Ability: Normal Director Institution Required: No Beliefs That Will Affect Care: None marital status: Current Living Situation: Spouse current occupational status: retired How many Children do You have: 2 Other Information That Helps Us Care for You: No Feels Safe at Home: Yes Safety Concerns: Feels Safe At This Time Childhood Exposure to Second-Hand Smoke: Yes (parents did ) Diet: low salt caffeine: No Dental Care, Regularly: Yes Physical Activity Frequency: Does not Exercise Physical Activity Frequency Comment: doesn't because of hip Seatbelt Use: always Sunscreen Use: No Do you think of yourself as: straight/heterosexual Assistive Devices: Cane, Glasses and Hospital Bed Review of Systems Review of Systems: All systems reviewed & are unremarkable except as noted in HPI & below Physical Exam Constitutional: WD/WN, vitals as above Respiratory: normal respiratory effort, lungs clear to auscultation Cardiovascular: Rate/Rhythm: regular rate and + irregularly irregular Heart Sounds: no murmur Extremities: normal capillary refill; no calf tenderness and no pedal edema Gastrointestinal (Abdomen): normal bowel sounds, soft, nontender, no hepatos plenomegaly Results & Data Results & Data Vital Signs (Past 12 Hours) Vital Signs Temp Pulse Resp BP Pulse Ox O2 Del Method 10/14/22 18:30 58 L 22 98 10/14/22 18:20 59 L 15 99 10/14/22 18:10 65 19 100 10/14/22 18:00 65 23 96 10/14/22 17:50 63 20 99 10/14/22 17:40 59 L 16 99 10/14/22 17:36 64 21 98 10/14/22 17:00 58 L 12 10/14/22 16:50 60 17 10/14/22 16:40 59 L 18 100 10/14/22 16:31 61 23 98 10/14/22 16:31 133/58 L 10/14/22 16:30 55 L 13 98 10/14/22 16:20 59 L 16 100 10/14/22 16:14 62 17 100 10/14/22 15:55 95 Room Air 10/14/22 16:17 63 10/14/22 15:48 36.8 C 62 20 146/86 H 99 Room Air Laboratory Results Abnormal lab results 10/14/22 10/14/22 10/14/22 Range/Units 16:04 16:04 16:04 RBC 3.73 L (4.70-6.10) M/uL Hgb 12.0 L (14.0-18.0) g/dl Hct 35.4 L (42.0-52.0) % RDW Std Deviation 49.3 H (36.4-46.3) fL PT 16.2 H (9.0-12.0) Seconds INR 1.5 H (0.9-1.1) APTT 37.2 H (21.0-31.0) Seconds BUN 37 H (6-23) mg/dl BUN/Creatinine Ratio 33.3 H (10-20) Glucose 101 H (70-99(Fasting)) mg/dl Total Bilirubin 2.5 H (0.2-1.0) mg/dl Troponin I High Sens 39.6 H (0-20) pg/ml Diagnostic Findings CT ANGIOGRAM OF THE ABDOMEN AND PELVIS CLINICAL HISTORY: GI bleeding. COMPARISON STUDY: Abdominal CT dated 05/31/2022. TECHNIQUE: Following the IV administration of 119 cc of Optiray 350, CT angiogram of the abdomen and pelvis was performed from the lung bases the proximal femora. Images are reviewed in the axial, sagittal, and coronal planes. 3-D MIPS images are created and assessed. IV contrast was administered without complication. A dose lowering technique was utilized adhering to the principles of ALARA. CT DOSE: 723.86 mGy.cm FINDINGS: Lower chest: The heart is enlarged and without pericardial effusion. There are coronary artery calcifications. Intralobular septal thickening is noted at the lung bases. No airspace consolidation or pleural effusion is identified. A 4 mm right lower lobe pulmonary nodule on image #47 is new from previous. Liver: The contrast-enhanced liver is normal in size, contour, and attenuation. There is no intrahepatic biliary ductal dilatation. The main portal vein is grossly patent. Gallbladder: There are gallstones with no CT evidence of acute cholecystitis. Spleen: Normal in size and attenuation noting heterogeneous arterial phase enhancement. Pancreas: Moderately atrophic and grossly unremarkable. Adrenal glands: Nodular thickening of the adrenal glands are previous. Kidneys: The contrast enhanced kidneys are normal in size and without hydronephrosis. The kidneys enhance symmetrically. A 4 mm nonobstructing calculus is seen in the right lower pole. Right renal cysts measure up to 4.8 cm. Additional subcentimeter cortical hypodensities also likely represent cysts but are too small for definitive catheterization. Abdominal aorta and iliac arteries: There is advanced atherosclerotic calcification of the abdominal aorta which is normal in caliber. The abdominal aorta is widely patent. No dissection is seen. Advanced atherosclerotic plaque and irregularity seen throughout the iliac arteries. The iliac vessels are patent bilaterally. Major branches of the abdominal aorta: The celiac trunk, superior mesenteric, and inferior mesenteric arteries are widely patent. There is a replaced hepatic artery which arises from the superior mesenteric artery. The splenic artery is patent. There is a single left renal artery and 2 right renal arteries. Renal arteries are widely patent bilaterally. Bowel: There is moderate to advanced colonic diverticulosis without CT evidence of acute diverticulitis. No bowel obstruction is seen. Moderately moderate fecal retention is noted throughout the colon. Question trace intraluminal contrast within the rectosigmoid colon on image #[id number]. The appendix is well-visualized and normal. Peritoneum: There is no intraperitoneal free air or abdominal ascites. There is a fat-containing umbilical hernia. Lymphadenopathy: None. Pelvic viscera: The prostate gland is markedly enlarged and heterogeneous. The bladder wall is thickened/trabeculated indicating chronic outlet obstruction. There are bilateral inguinal hernias, right larger than left. The right A1 artery contains trace fluid and a small segment of bowel. Skeletal structures: The skeletal structures are osteopenic. There is moderate lumbosacral spondylosis. No destructive bony lesions are seen. Advanced arthritic change is seen in the right hip. Degenerative change and partial fusion is noted in the sacroiliac joints. IMPRESSION: 1. Normal CT angiogram of the abdominal aorta and its major branches noting advanced atherosclerotic plaque and irregularity. 2. Cardiomegaly. 3. No acute infectious or inflammatory findings are identified in the abdomen or pelvis. 4. Question a focus of intraluminal contrast within the rectosigmoid colon. A site of active GI bleeding is not excluded. 5. Moderate to advanced colonic diverticulosis without CT evidence of acute diverticulitis. 6. Marked prostatomegaly with evidence of chronic bladder outlet obstruction. 7. Right larger than left inguinal hernias. The right inguinal hernia contains a tiny segment of small bowel. 8. A 4 mm right lower lobe pulmonary nodule is new from previous. This is pathologically indeterminant, and a 3 month follow-up chest CT is recommended for reassessment and full evaluation of the thorax. 9. Right-sided nephrolithiasis. 10. Cholelithiasis. 11. Additional findings as above. Medications Administered ER Medications Given: NSS 1L bolus ECG Rate (beats per minute): 50 Rhythm: atrial flutter Findings: + nonspecific-ST abn (Lateral) and + left axis deviation; no acute ischemic change Comparison ECG Date: from (January 31, 2022) Change: no significant change Code Status & VTE Plan Code Status Full VTE Prophylaxis Plan VTE Prophylaxis will be ordered: No Reason for no VTE drug order: Contraindicated PG Care Time/CCT Total # of Minutes Spent Total Time Spent with Patient: Total time spent is greater than 50% in coordination of care (as documented) at patient's floor/unit and/or counseling patient: Coding Level of Care Code 21779 INT INP/OBS CARE 2/55MIN Diagnoses Acute lower GI bleeding K92.2 Elevated troponin I level R77.8 Atrial flutter I48.[address] of the abdomen R93.5
[2022-10-14] MEDS ORDERED: ACETAMINOPHEN 325 MG TAB PO PRN (19:57)
[2022-10-14 20:33] LABS: Hemoglobin 12.2 g/dl (14.0-18.0)
[2022-10-15] MEDS ORDERED: FAMOTIDINE 10 MG TABLET PO SCH (09:00)
[2022-10-15] MEDS ORDERED: METOPROLOL SUCC 25MG EXT REL TAB PO SCH (09:00)
--- NOTE | 2022-10-15 09:03 | Gastrointestinal Consultation ---
Date of Consultation October 15, 2022 Assessment & Plan (1) Acute lower GI bleeding: His description of what happened is classic for hemorrhoidal bleeding with normal colored stool, blood in water and/or on the tissue alone. His H/H are stable so I think he can go home. I advised him to go back on Miralax on a daily basis and assured him of its safety. I don't know what was seen on CT but it doesn't fit clinically and he has stopped passing blood anyway. He tells me his last colonoscopy was 12 years ago and they found a polyp that they didn't remove because it wasn't safe. He has not had a colonoscopy since. I advised him to follow up with Dr. Yanez and emphasized to him that he needs another co lonoscopy. He will arrange that. It is okay for me for him to be discharged with advice to return if bleeding gets worse/changes in characteristics History of Present Illness Reason for Consultation: rectal bleeding Attending Physician: Valdo Chiang DO History of Present Illness 76 year old who came to the hospital with rectal bleeding. He has a longstanding history of "hemorrhoids and fissures". Several years ago Dr. Yanez told him to take miralax every day and he did that for 14 months. Then he "discovered" that miralax can cause bilirubin to rise so he stopped it 8 days ago. As the days progressed he got more and more constipated and had to "squeeze" more and more to have a bowel movement. Yesterday he had a hard stool and saw blood in the water and a clot on the tissue. The stool was hard and bro wn though. Then he went again and passed a small scyballous stool and there was blood only on the tissue. He decided he needed to go to ER as he takes Xarelto. CT scan in ER suggested a "possible extravasation of contrast" at the rectosigmoid junction. He had a small stool at 3 am and there was no blood in it. Allergies Allergy/AdvReac Type Severity Reaction Status Date / Time clavulanic acid AdvReac Intermediate Diarrhea Verified 10/14/22 17:09 Home Medications Medication Instructions Recorded Confirmed Type metoprolol succinate 25 mg 12.5 mg PO DAILY #45 tabs 05/17/22 10/14/22 Rx tablet,extended release 24 hr (Toprol XL) rivaroxaban 20 mg tablet (Xarelto) 20 mg PO QAM #90 tabs 05/17/22 10/14/22 Rx Wheeled Walker #1 ea 07/04/22 10/10/22 Rx Diltiazem 2% Rectal Ointment 1 1 bead OK DIRECTED PRN 09/06/22 10/14/22 History tube ointment Hemorrhoids #1 tube zinc oxide 5 % topical cream 1 applic topical DIRECTED PRN 10/10/22 10/14/22 History Hemorrhoids famotidine 10 mg tablet (Pepcid AC) 10 mg PO DAILY 10/14/22 10/14/22 History [id number] 1 tab PO DAILY 10/14/22 10/14/22 History tablet (Multivitamin 50 Plus tablet) Patient History Medical History Anal fissure Atrial fibrillation Bradycardia Chronic diastolic CHF (congestive heart failure) 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 Diverticular disease Dyslipidemia Elevated bilirubin Generalized osteoarthritis Hypertension Ischemic colitis Mitral regurgitation Pulmonary hypertension Sensorineural hearing loss of both ears Syncope and collapse Tricuspid regurgitation Surgical History H/O colonoscopy 2021 Declines further Colonoscopy History of incision and drainage perirectal abscess Family History Father Brain tumor Mother Macular degeneration Denies family history of Ovarian cancer Prostate cancer Myocardial infarction Breast cancer Lung cancer Colorectal cancer Stroke Social History Smoking Status: Former smoker Tobacco Type: Cigarettes Age Started Using Tobacco: 15; Age Quit Using Tobacco: 32; packs per day: 1; Cigarettes Per Day: 10; Second Hand Exposure: No; Do You Dip or Chew Tobacco: No; Tobacco Cessation Education Requested by Patient: No Hx Alcohol Use: Yes Alcohol type: hard liquor Alcohol Intake Frequency: 2-3 x/Week Alcohol Intake Frequency Comment: one a day Hx Substance Use: No Preferred Language: Peruvian Communication Ability: Effective Visual Impairment: Limited Hearing Ability: Normal Aqueduct And Reservoir Keeper Required: No Beliefs That Will Affect Care: None marital status: Current Living Situation: Spouse current occupational status: retired How many Children do You have: 2 Other Information That Helps Us Care for You: No Feels Safe at Home: Yes Safety Concerns: Feels Safe At This Time Childhood Exposure to Second-Hand Smoke: Yes (parents did ) Diet: low salt caffeine: No Dental Care, Regularly: Yes Physical Activity Frequency: Does not Exercise Physical Activity Frequency Comment: doesn't because of hip Seatbelt Use: always Sunscreen Use: No Do you think of yourself as: straight/heterosexual Assistive Devices: Cane, Glasses and Hospital Bed Review of Systems Review of Systems: All systems reviewed & are unremarkable except as noted in HPI & below Physical Exam Constitutional: WD/WN, vitals as above Eyes: PERRL, conjunctivae normal, anicteric sclerae Neck: trachea midline, no thyromegaly Respiratory: normal respiratory effort, lungs clear to auscultation Cardiovascular: RRR, no murmur, no edema Gastrointestinal (Abdomen): normal bowel sounds, soft, nontender, no hepatosplenomegaly Musculoskeletal: Extremities: extremities normal to inspection Results & Data Vital Signs (Past 12 Hours) Vital Signs Temp Pulse Resp BP Pulse Ox O2 Del Method 10/15/22 07:45 36.7 C 58 L 18 127/73 98 Room Air Laboratory Results 10/14/22 10/14/22 10/14/22 Range/Units 20:04 20:04 16:53 WBC (4.8-10.8) K/ul RBC (4.70-6.10) M/uL Hgb 12.2 L (14.0-18.0) g/dl Hct 36.0 L (42.0-52.0) % MCV (80.0-100.0) fL MCH (25.0-34.0) pg MCHC (32.0-36.0) g/dL RDW Std Deviation (36.4-46.3) fL RDW Coeff of Loretta (11.5-14.5) % Plt Count (130-400) K/uL MPV (9.4-12.4) fL PT (9.0-12.0) Seconds INR (0.9-1.1) APTT (21.0-31.0) Seconds PTT Ratio Sodium (136-145) mmol/L Potassium (3.5-5.1) mmol/L Chloride (98-107) mmol/L Carbon Dioxide (21-32) mmol/L Anion Gap (3-11) BUN (6-23) mg/dl Creatinine (0.6-1.4) mg/dl Est Cr Clr Drug Dosing ml/min Est GFR ( Amer) ml/min Est GFR (Non-Af Amer) ml/min BUN/Creatinine Ratio (10-20) Glucose (70-99(Fasting)) mg/dl Lactate 1.4 (0.4-2.0) mmol/L Calcium (8.6-10.3) mg/dl Total Bilirubin (0.2-1.0) mg/dl AST (13-39) U/L ALT (7-52) U/L Alkaline Phosphatase (34-104) U/L Troponin I High Sens 45.2 H (0-20) pg/ml Total Protein (6.0-8.3) gm/dl Albumin (3.4-5.0) gm/dl Globulin (2.5-4.0) gm/dl Albumin/Globulin Ratio (0.9-2) Blood Type Antibody Screen 10/14/22 10/14/22 10/14/22 Range/Units 16:04 16:04 16:04 WBC 6.87 (4.8-10.8) K/ul RBC 3.73 L (4.70-6.10) M/uL Hgb 12.0 L (14.0-18.0) g/dl Hct 35.4 L (42.0-52.0) % MCV 94.9 (80.0-100.0) fL MCH 32.2 (25.0-34.0) pg MCHC 33.9 (32.0-36.0) g/dL RDW Std Deviation 49.3 H (36.4-46.3) fL RDW Coeff of Loretta 14.5 (11.5-14.5) % Plt Count 177 (130-400) K/uL MPV 10.7 (9.4-12.4) fL PT 16.2 H (9.0-12.0) Seconds INR 1.5 H (0.9-1.1) APTT 37.2 H (21.0-31.0) Seconds PTT Ratio 1.3 Sodium 138 (136-145) mmol/L Potassium 4.4 (3.5-5.1) mmol/L Chloride 106 (98-107) mmol/L Carbon Dioxide 26 (21-32) mmol/L Anion Gap 6 (3-11) BUN 37 H (6-23) mg/dl Creatinine 1.11 (0.6-1.4) mg/dl Est Cr Clr Drug Dosing 47.7 ml/min Est GFR ( Amer) 73.3 ml/min Est GFR (Non-Af Amer) 63.3 ml/min BUN/Creatinine Ratio 33.3 H (10-20) Glucose 101 H (70-99(Fasting)) mg/dl Lactate (0.4-2.0) mmol/L Calcium 9.7 (8.6-10.3) mg/dl Total Bilirubin 2.5 H (0.2-1.0) mg/dl AST 26 (13-39) U/L ALT 15 (7-52) U/L Alkaline Phosphatase 64 (34-104) U/L Troponin I High Sens 39.6 H (0-20) pg/ml Total Protein 7.4 (6.0-8.3) gm/dl Albumin 4.4 (3.4-5.0) gm/dl Globulin 3.0 (2.5-4.0) gm/dl Albumin/Globulin Ratio 1.5 (0.9-2) Blood Type Antibody Screen 10/14/22 Range/Units 16:04 WBC (4.8-10.8) K/ul RBC (4.70-6.10) M/uL Hgb (14.0-18.0) g/dl Hct (42.0-52.0) % MCV (80.0-100.0) fL MCH (25.0-34.0) pg MCHC (32.0-36.0) g/dL RDW Std Deviation (36.4-46.3) fL RDW Coeff of Loretta (11.5-14.5) % Plt Count (130-400) K/uL MPV (9.4-12.4) fL PT (9.0-12.0) Seconds INR (0.9-1.1) APTT (21.0-31.0) Seconds PTT Ratio Sodium (136-145) mmol/L Potassium (3.5-5.1) mmol/L Chloride (98-107) mmol/L Carbon Dioxide (21-32) mmol/L Anion Gap (3-11) BUN (6-23) mg/dl Creatinine (0.6-1.4) mg/dl Est Cr Clr Drug Dosing ml/min Est GFR ( Amer) ml/min Est GFR (Non-Af Amer) ml/min BUN/Creatinine Ratio (10-20) Glucose (70-99(Fasting)) mg/dl Lactate (0.4-2.0) mmol/L Calcium (8.6-10.3) mg/dl Total Bilirubin (0.2-1.0) mg/dl AST (13-39) U/L ALT (7-52) U/L Alkaline Phosphatase (34-104) U/L Troponin I High Sens (0-20) pg/ml Total Protein (6.0-8.3) gm/dl Albumin (3.4-5.0) gm/dl Globulin (2.5-4.0) gm/dl Albumin/Globulin Ratio (0.9-2) Blood Type A Positive Antibody Screen NEGATIVE Diagnostic Findings Abdomen/Pelvis CTA 10/14/22 16:43 CT ANGIOGRAM OF THE ABDOMEN AND PELVIS CLINICAL HISTORY: GI bleeding. COMPARISON STUDY: Abdominal CT dated 05/31/2022. TECHNIQUE: Following the IV administration of 119 cc of Optiray 350, CT angiogram of the abdomen and pelvis was performed from the lung bases the proximal femora. Images are reviewed in the axial, sagittal, and coronal planes. 3-D MIPS images are created and assessed. IV contrast was administered without complication. A dose lowering technique was utilized adhering to the principles of ALARA. CT DOSE: 723.86 mGy.cm FINDINGS: Lower chest: The heart is enlarged and without pericardial effusion. There are coronary artery calcifications. Intralobular septal thickening is noted at the lung bases. No airspace consolidation or pleural effusion is identified. A 4 mm right lower lobe pulmonary nodule on image #47 is new from previous. Liver: The contrast-enhanced liver is normal in size, contour, and attenuation. There is no intrahepatic biliary ductal dilatation. The main portal vein is grossly patent. Gallbladder: There are gallstones with no CT evidence of acute cholecystitis. Spleen: Normal in size and attenuation noting heterogeneous arterial phase enhancement. Pancreas: Moderately atrophic and grossly unremarkable. Adrenal glands: Nodular thickening of the adrenal glands are previous. Kidneys: The contrast enhanced kidneys are normal in size and without hydronephrosis. The kidneys enhance symmetrically. A 4 mm nonobstructing c alculus is seen in the right lower pole. Right renal cysts measure up to 4.8 cm. Additional subcentimeter cortical hypodensities also likely represent cysts but are too small for definitive catheterization. Abdominal aorta and iliac arteries: There is advanced atherosclerotic calcification of the abdominal aorta which is normal in caliber. The abdominal aorta is widely patent. No dissection is seen. Advanced atherosclerotic plaque and irregularity seen throughout the iliac arteries. The iliac vessels are patent bilaterally. Major branches of the abdominal aorta: The celiac trunk, superior mesenteric, and inferior mesenteric arteries are widely patent. There is a replaced hepatic artery which arises from the superior mesenteric artery. The splenic artery is patent. There is a single left renal artery and 2 right renal arteries. Renal arteries are widely patent bilaterally. Bowel: There is moderate to advanced colonic diverticulosis without CT evidence of acute diverticulitis. No bowel obstruction is seen. Moderately moderate fecal retention is noted throughout the colon. Question trace intraluminal contrast within the rectosigmoid colon on image #249. The appendix is well-visualized and normal. Peritoneum: There is no intraperitoneal free air or abdominal ascites. There is a fat-containing umbilical hernia. Lymphadenopathy: None. Pelvic viscera: The prostate gland is markedly enlarged and heterogeneous. The bladder wall is thickened/trabeculated indicating chronic outlet obstruction. There are bilateral inguinal hernias, right larger than left. The right A1 bonifacio ry contains trace fluid and a small segment of bowel. Skeletal structures: The skeletal structures are osteopenic. There is moderate lumbosacral spondylosis. No destructive bony lesions are seen. Advanced arthritic change is seen in the right hip. Degenerative change and partial fusion is noted in the sacroiliac joints. IMPRESSION: 1. Normal CT angiogram of the abdominal aorta and its major branches noting advanced atherosclerotic plaque and irregularity. 2. Cardiomegaly. 3. No acute infectious or inflammatory findings are identified in the abdomen or pelvis. 4. Question a focus of intraluminal contrast within the rectosigmoid colon. A site of active GI bleeding is not excluded. 5. Moderate to advanced colonic diverticulosis without CT evidence of acute diverticulitis. 6. Marked prostatomegaly with evidence of chronic bladder outlet obstruction. 7. Right larger than left inguinal hernias. The right inguinal hernia contains a tiny segment of small bowel. 8. A 4 mm right lower lobe pulmonary nodule is new from previous. This is pathologically indeterminant, and a 3 month follow-up chest CT is recommended for reassessment and full evaluation of the thorax. 9. Right-sided nephrolithiasis. 10. Cholelithiasis. 11. Additional findings as above. ACT 112: Positive. There are findings on this exam that require communication between the performing entity and the patient following Patient Test Result Information Act ([place] Act 112) guidelines. Electronically signed by: Quang Gómez M.D. 10/14/2022 5:38 PM
--- NOTE | 2022-10-15 09:50 | Discharge Summary ---
Date of Service October 15, 2022 Patient seen on hospitalist rounds for discharge planning which will happen today. There is no further bleeding that did come from internal hemorrhoid and fissure. Therefore change in plans for discharge as the patient may maintain on his Xarelto blood thinner for his A-fib flutter. He describes having had a colonoscopy about 12 years ago which showed a diminutive polyp that was negative for malignancy. In this case he can follow-up with Dr. Yanez from gastroenterology while on the blood thinner Xarelto and decide whether he will have a follow-up colonoscopy sooner or later. Patient clearly understands the risk-benefit ratio of being on Xarelto for a flutter as it will significantly reduce the stroke rate. Admission HPI Per Admitting Provider Anders Rangel is a 76 year old male who presents to the ER due to hematochezia. 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 Reports two does of worsening rectal bleeding. No nausea, vomiting, abdominal pain. On Xarelto for atrial fibrillation and last took this morning. Has been using MiraLAX intermittently to help with constipation. Admission Exam Per Admitting Provider No exam today Principal Diagnosis Lower GI bleed due to internal hemorrhoid and fissure with a complicating factor being the patient patient on Xarelto for a flutter. Therefore the risks and benefits of anticoagulation reviewed and favor continuation of Xarelto. Discharge Data Allergies Allergy/AdvReac Type Severity Reaction Status Date / Time clavulanic acid AdvReac Intermediate Diarrhea Verified 10/14/22 17:09 Consultations 10/14/22 18:13 ED Decision to Admit Stat 10/15/22 07:40 Consult Gastroenterology Routine Ordered Studies 10/14/22 16:43 CT angio abdomen pelvis w con Stat Hospital Course (1) Acute lower GI bleeding: Observation recommended due to possible ongoing active bleed on CT although symptomatimcally improving History of hemorrhoids and anal fissures Hold Xarelto Repeat H&H now and in the morning. Transfuse for Hgb < 7 Consult GI to see in am (2) Elevated troponin I level: Appears to be elevated each admission ? due to atrial flutter/fibrillation. Will repeat just to make sure stable. No chest pain or shortness of breath to suggest acute coronary syndrome (3) Atrial flutter: Hold Xarelto as above Continue rate control with metoprolol succinate 12.5mg PO daily (4) Abnormal CT of the abdomen: "A 4 mm right lower lobe pulmonary nodule is new from previous. This is pathologically indeterminant, and a 3 month follow-up chest CT is recommended for reassessment and full evaluation of the thorax." Plan VTE Prophylaxis - chemical contraindicated Diet - clear liquid Disposition - observation to med/surg Total Time Total Time Spent Total Time Spent (In Minutes): 10 Discharge Plan Discharge Items Patient Disposition: Home - Self-Care Reason For Visit: LOWER GI BLEED Discharge Diagnosis: Lower gastrointestinal bleed due to internal hemorrhoids and fissures Condition on Discharge: Good Health Concerns: Follow-up with your instructor warper Dr. Yanez for colonoscopy Goals: Continue Xarelto for stroke prevention as risk-benefit favors anticoagulation But also follow-up with your gastroenterology Dr. Mendoza Activity: Resume your previous activity Lifting: Gradually increase as tolerated Bathing: No limitations Exercise/Sports: Gradually increase as tolerated Driving/Machine Use: No limitations Weightbearing: Full weightbearing Non-emergency contact: Primary Care Provider and Classroom Instructor Call non-emergency contact if: you have any medication questions and your symptoms worsen Follow-up/Referrals: Calin Padgett, [Primary Care Provider] - 10/24/22 11:30 am Diet: Regular Addtl Attending Provider Instructions: The follow-up above was meant to say Dr. Mendoza from gastroenterology And to hold the Xarelto for 1 week or until your colonoscopy is done unless there is no further bleeding then resume and discontinue as per gastroenterology. Pending Studies at Discharge: No Stand-Alone Forms: [facility], Smoking Cessation Medications and DC Order Prescriptions: Continued Xarelto 20 mg tablet 20 mg PO QAM Qty: 90 3RF metoprolol succinate [Toprol XL] 25 mg tablet extended release 24 hr 12.5 mg PO DAILY Qty: 45 3RF (DME) Wheeled Walker Misc See Rx Instructions .Route Qty: 1 0RF Rx Instructions: Wheeled walker dx hip pain zinc oxide 5 % cream 1 applic topical DIRECTED PRN (Reason: Hemorrhoids) Diltiazem 2% Rectal Ointment 1 tube ointment 1 bead OK DIRECTED PRN (Reason: Hemorrhoids) Qty: 1 famotidine [Pepcid AC] 10 mg Tablet 10 mg PO DAILY Multivitamin 50 Plus Tablet 1 tab PO DAILY Discharge Orders: Discharge Order (Routine); Ordered 10/15/22 Ordered By: Valdo Chiang Admission Data Admit Date/Time: 10/14/22 18:50 Attending Provider: Valdo Chiang Admit Provider: Marvin Lujan Primary Care Provider: Calin Padgett Other Providers: Marvin Lujan ; Brandi Sloan Jr Other Interventions: Discharge Summary Assessment (RN) Last Done: 10/15/22 09:50 Coding Level of Care Code 19712 IN/OBS DISCH 30 MIN/LESS Diagnoses Acute lower GI bleeding K92.2 Elevated troponin I level R77.8 Atrial flutter I48.[address] of the abdomen R93.5 Time Spent (min) 10
--- NOTE | 2022-10-15 10:51 | Electrocardiogram Report ---
Test Reason : Blood Pressure : / mmHG Vent. Rate : 050 BPM Atrial Rate : 340 BPM P-R Int : 000 ms QRS Dur : 124 ms QT Int : 426 ms P-R-T Axes : 057 -60 105 degrees QTc Int : 388 ms Atrial flutter with variable A-V block Left anterior fascicular block ) Anteroseptal infarct (cited on or before 07-JUL-2014) Non-specific intra-ventricular conduction delay Abnormal ECG When compared with ECG of 31-JAN-2022 00:50, No significant change was found Confirmed by Blanco Mueller ([id number]) on 10/15/2022 10:51:25 AM Referred By: Confirmed By:Blanco Mueller
== END 2022-10-15 10:27 | disposition home or self-care (01) ==
LOC: 3N 15:31 → ED 15:31 → SUATTDRO 18:50 → 3N 19:50

== ENCOUNTER 2025-01-15 07:48 | Observation (INO) ==
--- NOTE | 2025-01-15 08:18 | Emergency Department Note ---
Impression & Plan BRBPR (bright red blood per rectum), Acute lower GI bleeding ED Provider Note HISTORY OF PRESENT ILLNESS: Patient is a 79-year-old male presenting with rectal bleeding. Patient reports that he had a bowel movement this morning and had notable blood on his stool and a significant amount of blood on his toilet paper when he wiped. He denies any pain with the bowel movement. He reports his bowel movements are always on the softer side secondary to taking daily MiraLAX. He is on Eliquis. He denies any significant anterior abdominal pain, nausea or vomiting. He states that he typically has bleeding from his hemorrhoids, but he has never had this much blood. He denies any melena recently. He has not had any further bleeding from his rectum this morning other than the initial bowel movement. ROS: as above PHYSICAL EXAM: Constitutional: Patient appears in no acute distress. HENT: Head: Normocephalic and atraumatic. Eyes: EOMI, PERRL Mouth/Throat: Mucous membranes moist. Neck: Trachea midline. Neck supple. Cardiovascular: RRR, No murmurs, rubs or gallops. Intact distal pulses. Pulmonary/Chest: No respiratory distress. Breath sounds clear and equal bilaterally. No wheezes or rales. Abdominal: Abdomen soft, no tenderness, rebound or guarding. : Chaperoned by nursing staff. No external hemorrhoids or masses. No palpable masses internally but noted to have a small internal hemorrhoid at the 2 o'clock position. No gross blood on glove. Musculoskeletal: No edema, tenderness or deformity noted. Skin: Warm and dry. No rash, erythema, pallor or cyanosis Psychiatric: Appropriate mood and affect for situation. Neurological: Alert and keenly responsive. CN II-XII grossly intact, moving all extremities equally and fully. MDM: - Vitals signs showed hypertension and bradycardia. - History obtained via patient. History as above. - Chronic conditions affecting care: CHF; Afib; hemorrhoids - Differential diagnoses include, but are not limited to: Hemorrhoidal bleed; anal fissure; bleeding polyp; diverticular bleed - Order placed for continuous cardiac monitoring. At this time, monitor showed rate of 60 bpm with normal sinus rhythm, per my interpretation. - External medical records reviewed. Primary care visit note dated 12/10/2024 was reviewed. Patient was seen for an acute visit after a fall and having tailbone pain. - Laboratory workup interpreted by myself showed normal WBC; stable hemoglobin; elevated INR (1.3 - on eliquis); stable electrolytes; elevated BUN (28); normal AST/ALT; normal lipase - UA negative for infection - CTA abdomen/pelvis with IV contrast showed enhancing vessel with possible intraluminal contrast noted in the rectosigmoid colon concerning for potential angiodysplasia. - Discussed case with gem carver on-call, Dr. Mo, at 11:00 am via [employer] messaging. He responded at 1123 and stated that he could potentially get the patient on for a flexible sigmoid procedure today. Recommended patient remain NPO - Discussion was had with field case manager about patient's case and need for admission - Hospitalist consulted for admission - Patient admitted to [facility] service for further evaluation and management. ASSESSMENT AND PLAN: Diagnosis: Bright red blood per rectum; acute lower GI bleed Plan: Admit Past Med/Surg History Problem List (Updated 01/15/25 @ 12:42 by Selina Jo MD) Acute lower GI bleeding (Acute) BRBPR (bright red blood per rectum) (Acute) Constipation Hemorrhoids Gastritis Hypertension (Chronic) Chronic heart failure with preserved ejection fraction Atrial fibrillation (Chronic) follows with dr espinoza. no cardioversion. controlled with medications. 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 no problems since. Ischemic colitis found in 2011 - no treatment, no current issues Surgical History Hx of detached retina repair Hx of left cataract extraction H/O colonoscopy last 2011; Declines further Colonoscopy History of incision and drainage (1977)perirectal abscess Family History Father Brain tumor Mother Macular degeneration Denies family history of Ovarian cancer Prostate cancer Myocardial infarction Breast cancer Lung cancer Colorectal cancer Stroke Social History Smoking Status: Former smoker Tobacco Type: Cigarettes Age Started Using Tobacco: 15; Age Quit Using Tobacco: 32; packs per day: 1; Cigarettes Per Day: 10; Second Hand Exposure: No; Do You Dip or Chew Tobacco: No; Hx Alcohol Use: Yes Alcohol type: hard liquor Alcohol Intake Frequency: 2-3 x/Week Alcohol Intake Frequency Comment: one a day Hx Substance Use: No Preferred Language: Persian Communication Ability: Effective Visual Impairment: Limited Hearing Ability: Normal Knitter Wire Mesh Required: No Beliefs That Will Affect Care: None marital status: Current Living Situation: Spouse current occupational status: retired How many Children do You have: 2 Feels Safe at Home: Yes Childhood Exposure to Second-Hand Smoke: Yes (parents did ) Diet: low salt caffeine: No Dental Care, Regularly: Yes Physical Activity Frequency: Does not Exercise Physical Activity Frequency Comment: doesn't because of hip Seatbelt Use: always Sunscreen Use: No Do you think of yourself as: straight/heterosexual Assistive Devices: Cane and Glasses Allergies Allergies Allergy/AdvReac Type Severity Reaction Status Date / Time clavulanic acid AdvReac Intermediate Diarrhea Verified 12/10/24 13:16 Home Meds Home Medications Medication Instructions Recorded Confirmed [id number] 1 tab PO QAM 10/14/22 01/15/25 tablet (Multivitamin 50 Plus tablet) nystatin 100,000 unit/gram topical 1 applic topical BID PRN Unknown 09/01/24 01/15/25 powder Previous Rx's Medication Instructions Recorded apixaban 5 mg tablet (Eliquis) 5 mg PO BID #180 tabs 02/11/24 Toprol XL 25 mg tablet,extended 12.5 mg (1/2 x 25 mg) PO QAM #45 06/17/24 release (metoprolol succinate) tabs hydrocortisone 2.5 % topical cream 1 applic MO BID PRN hemorrhoids 7 06/26/24 with perineal applicator days #30 grams (Anusol-HC) Results & Data (ED) Vital Signs Vital Signs - 24 hr 01/15/25 07:53 01/15/25 08:31 01/15/25 08:42 Temperature 36.7 C Temperature Source Temporal Artery Scan Pulse Rate 59 L 55 L 45 L Pulse Rate [Apical] Respiratory Rate 18 16 Respiratory Effort / Characteristics Non-Labored Spontaneous Respiratory Depth Normal Respiratory Pattern Blood Pressure 158/64 H Blood Pressure [Right Arm] Blood Pressure Mean 95 Blood Pressure Mean [Right Arm] Blood Pressure Position Sitting Pulse Oximetry 99 96 Oxygen Delivery Method Room Air Room Air Sepsis Recent Fever Within 48 Hours No Sepsis New/Unexplained Change in Mental Status No Sepsis Action Taken by Nursing No Action Required 01/15/25 09:30 01/15/25 11:00 Temperature Temperature Source Pulse Rate Pulse Rate [Apical] 61 55 L Respiratory Rate 16 16 Respiratory Effort / Characteristics Non-Labored Spontaneous Non-Labored Spontaneous Respiratory Depth Normal Normal Respiratory Pattern Regular Regular Blood Pressure Blood Pressure [Right Arm] 132/68 124/73 Blood Pressure Mean Blood Pressure Mean [Right Arm] 89 90 Blood Pressure Position Pulse Oximetry 95 97 Oxygen Delivery Method Room Air Room Air Sepsis Recent Fever Within 48 Hours Sepsis New/Unexplained Change in Mental Status Sepsis Action Taken by Nursing Laboratory Data 01/15/25 08:26 01/15/25 08:26 Lab Results 01/15/25 01/15/25 Range/Units 08:26 Unknown WBC 5.36 (4.8-10.8) K/ul RBC 4.49 L (4.70-6.10) M/uL Hgb 14.4 (14.0-18.0) g/dl Hct 42.0 (42.0-52.0) % MCV 93.5 (80.0-100.0) fL MCH 32.1 (25.0-34.0) pg MCHC 34.3 (32.0-36.0) g/dL RDW Std Deviation 47.4 H (36.4-46.3) fL RDW Coeff of Loretta 13.8 (11.5-14.5) % Plt Count 158 (130-400) K/uL MPV 11.0 (9.4-12.4) fL Immature Gran % (Auto) 0.4 % Neut % (Auto) 77.4 % Lymph % (Auto) 12.7 % Hettinger % (Auto) 8.4 % Eos % (Auto) 0.7 % Baso % (Auto) 0.4 % Neut # (Auto) 4.15 (1.40-6.50) K/uL Lymph # (Auto) 0.68 L (1.20-3.40) K/uL Hettinger # (Auto) 0.45 (0.11-0.59) K/uL Eos # (Auto) 0.04 (0.00-0.50) K/uL Baso # (Auto) 0.02 (0.00-0.20) K/uL Immature Gran # (Auto) 0.02 (0.01-0.20) K/uL PT 13.5 H (9.0-12.0) Seconds INR 1.3 H (0.9-1.1) Sodium 140 (136-145) mmol/L Potassium 4.1 (3.5-5.1) mmol/L Chloride 106 (98-107) mmol/L Carbon Dioxide 26 (21-32) mmol/L Anion Gap 8 (3-11) BUN 28 H (6-23) mg/dl Creatinine 0.99 (0.6-1.4) mg/dl Est Cr Clr Drug Dosing 50.9 ml/min eGFR 76.53 BUN/Creatinine Ratio 28.3 H (10-20) Glucose 124 H (70-99(Fasting)) mg/dl Lactate 1.2 (0.4-2.0) mmol/L Calcium 9.5 (8.6-10.3) mg/dl Total Bilirubin 4.1 H (0.2-1.0) mg/dl AST 23 (13-39) U/L ALT 17 (7-52) U/L Alkaline Phosphatase 68 (34-104) U/L Total Protein 7.1 (6.0-8.3) gm/dl Albumin 3.7 (3.4-5.0) gm/dl Globulin 3.4 (2.5-4.0) gm/dl Albumin/Globulin Ratio 1.1 (0.9-2) Lipase 13 (11-82) U/L Urine Color Dark Yellow Urine Appearance Clear (Clear) Urine pH 6.0 (4.5-7.5) Ur Specific [place] 1.025 (1.000-1.030) Urine Protein Trace H (Negative) Urine Glucose (UA) Negative (Negative) Urine Ketones Trace H (Negative) Urine Blood Negative (Negative) Urine Nitrite Negative (Negative) Urine Bilirubin Negative (Negative) Urine Urobilinogen Negative (Negative) Ur Leukocyte Esterase Trace H (Negative) Urine WBC (Auto) 0-5 (0-5) /hpf Urine RBC (Auto) 0-2 (0-2) /hpf U Hyaline Cast (Auto) 0-2 (0-2) /lpf U Epithel Cells (Auto) 0-2 (0-2) /hpf Urine Bacteria (Auto) None Seen (None Seen) Urine Comment Administered Medications Discontinued Medications Ioversol (Optiray 320 125ml) 112 ml IV ONCE ONE Stop: 01/15/25 10: Last Admin: 01/15/25 10: Dose: 112 ml Documented By: CORIE Imaging Data Radiologist's Impression: Abdomen/Pelvis CTA 01/15/25 08:33 CT angio abdomen pelvis w con CLINICAL HISTORY: 79 years-old Male with bright red blood per rectum acute rectal bleeding COMPARISON STUDY: CT abdomen and pelvis 10/14/2022 TECHNIQUE: Following the IV administration of 112 cc of Optiray, CT angiogram of the abdomen and pelvis was performed from the lung bases the proximal femora. Images are reviewed in the axial, sagittal, and coronal planes. 3-D MIPS images are created and assessed. All measurements were obtained according to NASCET criteria. IV contrast was administered without complication. A dose lowering technique was utilized adhering to the principles of ALARA. CT DOSE: 653.4 mGy.cm FINDINGS: Moderate cardiomegaly. Trace pleural effusions. Mild bibasilar atelectasis with interstitial pulmonary edema. Moderate atherosclerosis of the abdominal aorta, iliac arteries and branch vessels. The celiac trunk, superior and inferior mesenteric and renal arteries are patent. There is a patent accessory renal artery on the right. No abdominal aortic aneurysm or dissection. The imaged femoral arteries are also patent. Linear hyperdense focus within the rectosigmoid on images 239 through 242 series 3 is similar to the study from 2022. No pneumatosis or pneumoperitoneum. Unremarkable spleen and moderately focal pancreas. Thickening adrenal glands compatible with hyperplasia. Cholelithiasis. Unremarkable liver. A 9 mm hypodensity of the right hepatic lobe on image 5 series 2, stable likely benign. Exophytic 5.3 cm cyst within the mid inferior pole right kidney. A millimeter calculus noted within the right ureteropelvic junction on image 131 series 3 without significant hydronephrosis. Prostatomegaly. Distended urinary bladder with diverticula compatible with chronic outlet obstruction. Small fat and fluid filled right inguinal hernia. No bowel obstruction. Colonic diverticulosis. No acute fracture. Severe osteoarthritis of the right hip. IMPRESSION: 1. Enhancing vessel with possible intraluminal contrast again noted within the rectosigmoid which is similar in appearance to the study from 2022. Primary differential consideration would be angiodysplasia. Findings could be correlated with colonoscopy. 2. Colonic diverticulosis without acute diverticulitis. 3. Atherosclerosis of the aorta and branch vessels without aneurysm, dissection, high-grade stenosis or arterial occlusion. 4. 8 mm calculus in the right ureteropelvic junction without significant hydronephrosis. 5. Cardiomegaly with interstitial pulmonary edema and trace pleural effusions. 6. Additional findings as above. ACT 112: Negative or not required by law. The above report was generated using voice recognition software. It may contain grammatical, syntax or spelling errors. Electronically signed by: Adrian Nettles M.D. 01/15/2025 10:43 AM Discharge Plan Visit Data Chief Complaint: Rectal Bleed Stated Complaint: BLOOD IN STOOL ED Provider: Selina Jo Discharge Problem: BRBPR (bright red blood per rectum), Acute lower GI bleeding Patient Disposition: Admitted As Inpatient Condition: Fair Forms Stand Alone Forms: [facility] [employer] Prescriptions Prescriptions: No Action Eliquis 5 mg tablet 5 mg PO BID Qty: 180 3RF metoprolol succinate [Toprol XL] 25 mg tablet extended release 24 hr 12.5 mg PO QAM Qty: 45 3RF Rx Instructions: ERIKA hydrocortisone [Anusol-HC] 2.5 % cream with perineal applicator 1 applic MO BID PRN (Reason: hemorrhoids) 7 Days Qty: 30 0RF nystatin 100,000 unit/gram powder 1 applic topical BID PRN (Reason: Unknown) Multivitamin 50 Plus Tablet 1 tab PO QAM Referrals Referrals: Calin Padgett DO [Primary Care Provider] -
[2025-01-15 09:03] LABS: Hematocrit (blood only) 42.0 % (42.0-52.0); Hemoglobin 14.4 g/dl (14.0-18.0); Immature Granulocytes # (auto) 0.02 K/uL (0.01-0.20); Immature Granulocytes % (auto) 0.4 %; Mean Corpuscular Hemoglobin 32.1 pg (25.0-34.0); Mean Corpuscular Volume 93.5 fL (80.0-100.0); Platelet Count 158 K/uL (130-400); RDW Standard Deviation 47.4 fL (36.4-46.3); Red Blood Count 4.49 M/uL (4.70-6.10); White Blood Count 5.36 K/ul (4.8-10.8)
[2025-01-15 09:16] LABS: INR 1.3 (0.9-1.1); Prothrombin Time 13.5 Seconds (9.0-12.0)
[2025-01-15 09:17] LABS: Alanine Aminotransferase 17.0 U/L (7-52); Albumin Globulin Ratio 1.1 (0.9-2); Albumin Level 3.7 gm/dl (3.4-5.0); Alkaline Phosphatase 68.0 U/L (34-104); Anion Gap 8.0 (3-11); Bilirubin,Total 4.1 mg/dl (0.2-1.0); Blood Urea Nitrogen 28.0 mg/dl (6-23); Calcium 9.5 mg/dl (8.6-10.3); Carbon Dioxide 26.0 mmol/L (21-32); Chloride 106.0 mmol/L (98-107); Creatinine Clr Calc Pharmacy 50.9 ml/min; Globulin 3.4 gm/dl (2.5-4.0); Glucose 124.0 mg/dl (70-99(Fasting)); Lipase 13.0 U/L (11-82); Potassium 4.1 mmol/L (3.5-5.1); Sodium 140.0 mmol/L (136-145); Total Protein 7.1 gm/dl (6.0-8.3)
[2025-01-15] MEDS: OPTIRAY 320 125ml IV ONE (10:01)
[2025-01-15 10:33] LABS: Appearance Urine Clear (Clear); Bacteria Urine Automated None Seen (None Seen); Cast Urine Automated 0-2 /lpf (0-2); Epithelial Cell Urine Auto 0-2 /hpf (0-2); Glucose Urine UA Negative (Negative); RBC Urine Automated 0-2 /hpf (0-2); WBC Urine Automated 0-5 /hpf (0-5)
--- NOTE | 2025-01-15 10:45 | CT Scan Report ---
CT angio abdomen pelvis w con CLINICAL HISTORY: 79 years-old Male with bright red blood per rectum acute rectal bleeding COMPARISON STUDY: CT abdomen and pelvis 10/14/2022 TECHNIQUE: Following the IV administration of 112 cc of Optiray, CT angiogram of the abdomen and pelv is was performed from the lung bases the proximal femora. Images are reviewed in the axial, sagittal, and coronal planes. 3-D MIPS images are created and assessed. All measurements were obtained accordi ng to NASCET criteria. IV contrast was administered without complication. A dose lowering technique was utilized adhering to the principles of ALARA. CT DOSE: 653.4 mGy.cm FINDINGS: Moderate cardiomegaly. Trace pleural effusions. Mild bibasilar atelectasis with interstitial pulmonar y edema. Moderate atherosclerosis of the abdominal aorta, iliac arteries and branch vessels. The elizabeth ac trunk, superior and inferior mesenteric and renal arteries are patent. There is a patent accessory renal artery on the right. No abdominal aortic aneurysm or dissection. The imaged femoral arteries a re also patent. Linear hyperdense focus within the rectosigmoid on images 239 through 242 series 3 is similar to the study from 2022. No pneumatosis or pneumoperitoneum. Unremarkable spleen and moderately focal pancreas. Thickening adr enal glands compatible with hyperplasia. Cholelithiasis. Unremarkable liver. A 9 mm hypodensity of th e right hepatic lobe on image 5 series 2, stable likely benign. Exophytic 5.3 cm cyst within the mid inferior pole right kidney. A millimeter calculus noted within the right ureteropelvic junction on im age 131 series 3 without significant hydronephrosis. Prostatomegaly. Distended urinary bladder with d iverticula compatible with chronic outlet obstruction. Small fat and fluid filled right inguinal imladis ia. No bowel obstruction. Colonic diverticulosis. No acute fracture. Severe osteoarthritis of the right h ip. IMPRESSION: 1. Enhancing vessel with possible intraluminal contrast again noted within the rectosigmoid which is similar in appearance to the study from 2022. Primary differential consideration would be angiodyspla jamin. Findings could be correlated with colonoscopy. 2. Colonic diverticulosis without acute diverticulitis. 3. Atherosclerosis of the aorta and branch vessels without aneurysm, dissection, high-grade stenosis or arterial occlusion. 4. 8 mm calculus in the right ureteropelvic junction without significant hydronephrosis. 5. Cardiomegaly with interstitial pulmonary edema and trace pleural effusions. 6. Additional findings as above. ACT 112: Negative or not required by law. The above report was generated using voice recognition software. It may contain grammatical, syntax o r spelling errors. Electronically signed by: Adrian Nettles M.D. 01/15/2025 10:43 AM
--- NOTE | 2025-01-15 11:55 | Gastrointestinal Consultation ---
Date of Consultation January 15, 2025 Assessment & Plan (1) Rectal bleeding: -2 tap water enemas in preparation for a flexible sigmoidoscopy later today; Need to wait 6 hours from what he consumed early this morning. -Keep NPO -Continue to monitor H/H Supervising Physician Co-Signing Physician Notes Bright red rectal bleeding. Sounds hemorrhoidal. However CT scan suggested intraluminal contrast and a dilated vessel in the rectosigmoid. Flexible sigmoidoscopy for evaluation today. Patient is on Eliquis. Benefits stressed with the patient informed consent obtained. told hemorrhoidal problems in the past by Dr. Galloway History of Present Illness Reason for Consultation: Rectal bleeding History of Present Illness Patient is an 79 yo male with history of constipation & hemorrhoids who presented to the ED due to bright blood on the stool and toilet tissue today. His H/H is normal at 14.4/42.0 at present. He denies associated symptoms. He takes Miralax daily to prevent constipation and issues with his hemorrhoids. A CT in the ED showed an enhancing vessel with intraluminal contrast within the rectosigmoid colon. Patient reportedly has not had further episodes since arriving to the ED. He does take Eliquis. Last dose was this morning. INR 1.3. BUN/Cr 28/0.99. No recent colonoscopy. Allergies Allergy/AdvReac Type Severity Reaction Status Date / Time clavulanic acid AdvReac Intermediate Diarrhea Verified 12/10/24 13:16 Home Medications Medication Instructions Recorded Confirmed Type [id number]-[id number] 1 tab PO QAM 10/14/22 01/15/25 History tablet (Multivitamin 50 Plus tablet) apixaban 5 mg tablet (Eliquis) 5 mg PO BID #180 tabs 02/11/24 01/15/25 Rx Toprol XL 25 mg tablet,extended 12.5 mg (1/2 x 25 mg) PO QAM #45 06/17/24 Rx release (metoprolol succinate) tabs hydrocortisone 2.5 % topical cream 1 applic NM BID PRN hemorrhoids 7 06/26/24 01/15/25 Rx with perineal applicator days #30 grams (Anusol-HC) nystatin 100,000 unit/gram topical 1 applic topical BID PRN Unknown 09/01/24 01/15/25 History powder Patient History Medical History Inguinal hernia, bilateral CT 2022 Elevated glucose Parageusia Superficial midline glossitis Perianal abscess Pulmonary nodule 05/2022, 02/2023 unchanged , no further f/u Anemia Acute lower GI bleeding Bradycardia Cholelithiasis 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 no problems since. Ischemic colitis found in 2011 - no treatment, no current issues Surgical History Hx of detached retina repair Hx of left cataract extraction H/O colonoscopy last 2011; Declines further Colonoscopy History of incision and drainage (1977)perirectal abscess Family History Father Brain tumor Mother Macular degeneration Denies family history of Ovarian cancer Prostate cancer Myocardial infarction Breast cancer Lung cancer Colorectal cancer Stroke Social History Smoking Status: Former smoker Tobacco Type: Cigarettes Age Started Using Tobacco: 15; Age Quit Using Tobacco: 32; packs per day: 1; Cigarettes Per Day: 10; Second Hand Exposure: No; Do You Dip or Chew Tobacco: No; Hx Alcohol Use: Yes Alcohol type: hard liquor Alcohol Intake Frequency: 2-3 x/Week Alcohol Intake Frequency Comment: one a day Hx Substance Use: No Preferred Language: Belarusian Communication Ability: Effective Visual Impairment: Limited Hearing Ability: Normal Doll Wig Hackler Required: No Beliefs That Will Affect Care: None marital status: Current Living Situation: Spouse current occupational status: retired How many Children do You have: 2 Feels Safe at Home: Yes Childhood Exposure to Second-Hand Smoke: Yes (parents did ) Diet: low salt caffeine: No Dental Care, Regularly: Yes Physical Activity Frequency: Does not Exercise Physical Activity Frequency Comment: doesn't because of hip Seatbelt Use: always Sunscreen Use: No Do you think of yourself as: straight/heterosexual Assistive Devices: Cane and Glasses Review of Systems Respiratory: no cough Gastrointestinal: + blood in stools; no abdominal pain, no coffee ground emesis, no constipation, no diarrhea/loose stools and no melena Physical Exam Constitutional: well developed Respiratory: normal respiratory effort Cardiovascular: Rate/Rhythm: regular rate Gastrointestinal (Abdomen): normal bowel sounds, soft, nontender, no he patosplenomegaly Psychiatric: Orientation: alert and oriented x 3 Results & Data Vital Signs (Past 12 Hours) Vital Signs Temp Pulse Pulse Resp BP BP Pulse Ox 01/15/25 11:00 55 L 16 124/73 97 01/15/25 09:30 61 16 132/68 95 01/15/25 08:42 45 L 01/15/25 08:31 55 L 16 96 01/15/25 07:53 36.7 C 59 L 18 158/64 H 99 O2 Del Method 01/15/25 11:00 Room Air 01/15/25 09:30 Room Air 01/15/25 08:42 01/15/25 08:31 Room Air 01/15/25 07:53 Room Air PG Care Time/CCT Total # of Minutes Spent Total Time Spent with Patient: Total time spent is greater than 50% in coordination of care (as documented) at patient's floor/unit and/or counseling patient: Coding Level of Care Code 14444 INT INP/OBS CARE 3/75MIN Diagnoses Rectal bleeding K62.5
--- NOTE | 2025-01-15 12:25 | History & Physical Report ---
"Date of Service January 15, 2025 Assessment & Plan (1) BRBPR (bright red blood per rectum): (2) Acute lower GI bleeding: (3) Atrial fibrillation: Plan Anders is an 79-year-old male with a past medical history of hypertension, A- fib on Eliquis, heart failure preserved ejection fraction and hyperlipidemia, managed by diet who presents to the ER with 1 episode of rectal bleeding. Stable hemoglobin, but CTA concerning for angiodysplasia - admit for GI consultation #rectal bleeding - one episode AM 01/15, pt asymptomatic. CTA A/P concerning enhancing vessel in rectosigmoid concern for angiodysplasia. GI consultedplan for flex sig today, will need to Fleet enemas prior Hold Eliquis Trend CBC. Hemoglobin 14 on arrival #afib | HFpEF - no acute exacerbation, manages HF with low sodium diet ekg confirms afib, rate controlled continue metoprolol hold Eliquis Dispo: Obs to med surg DVT proh: hold Eliquis, encourage ambulation History of Present Illness Chief Complaint: Rectal bleed Primary Care Provider: Calin Padgett, Anders is an 79-year-old male with a past medical history of hypertension, A- fib on Eliquis, heart failure preserved ejection fraction and hyperlipidemia, managed by diet who presents to the ER with 1 episode of rectal bleeding. Follows with GI and takes 1one half capful of MiraLAX daily to prevent constipation, he reports that this works well for him. States when he woke up this morning he was in his normal state of health and then went to have a bowel movement and noticed blood in his stool, in the toilet bowl and on the toilet paper. He denies any lightheadedness or dizziness. He has not had any further episodes of bloody stool. He does have a history of hemorrhoids and repeat reports that they do bleed sometimes but never to this degree. He does report he had a similar episode in 2011, at that time he had a colonoscopy done and was found to have 1 polyp where he was told that it was not worth it to remove it. He took his medications this morning, including his Eliquis And he wishes to be a DO NOT RESUSCITATE Allergies Allergy/AdvReac Type Severity Reaction Status Date / Time clavulanic acid AdvReac Intermediate Diarrhea Verified 12/10/24 13:16 Home Medications Medication Instructions Recorded Confirmed Type gibwnaxorfkg-znoxroqz-bnrhjt 1 tab PO QAM 10/14/22 01/15/25 History tablet (Multivitamin 50 Plus tablet) apixaban 5 mg tablet (Eliquis) 5 mg PO BID #180 tabs 02/11/24 01/15/25 Rx Toprol XL 25 mg tablet,extended 12.5 mg (1/2 x 25 mg) PO QAM #45 06/17/24 01/15/25 Rx release (metoprolol succinate) tabs hydrocortisone 2.5 % topical cream 1 applic [place] BID PRN hemorrhoids 7 06/26/24 01/15/25 Rx with perineal applicator days #30 grams (Anusol-HC) nystatin 100,000 unit/gram topical 1 applic topical BID PRN Unknown 09/01/24 01/15/25 History powder peg 3350-electrolytes 236 240 ml PO Q10M #4,000 mL 01/15/25 Rx gram-22.74 gram-6.74 gram-5.86 gram solution (GaviLyte-G) Past Med/Surg History Problem List (Updated 01/15/25 @ 12:42 by Selina Jo MD) Acute lower GI bleeding (Acute) BRBPR (bright red blood per rectum) (Acute) Constipation Hemorrhoids Gastritis Hypertension (Chronic) Chronic heart failure with preserved ejection fraction Atrial fibrillation (Chronic) follows with dr espinoza. no cardioversion. controlled with medications. 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 no problems since. Ischemic colitis found in 2012 - no treatment, no current issues Surgical History Hx of detached retina repair Hx of left cataract extraction H/O colonoscopy last 2011; Declines further Colonoscopy History of incision and drainage (1977)perirectal abscess Family History Father Brain tumor Mother Macular degeneration Denies family history of Ovarian cancer Prostate cancer Myocardial infarction Breast cancer Lung cancer Colorectal cancer Stroke Social History Smoking Status: Never smoker Tobacco Type: Cigarettes Age Started Using Tobacco: 15; Age Quit Using Tobacco: 32; packs per day: 1; Cigarettes Per Day: 10; Second Hand Exposure: No; Do You Dip or Chew Tobacco: No; Hx Alcohol Use: Yes Alcohol type: hard liquor Alcohol Intake Frequency: 2-3 x/Week Alcohol Intake Frequency Comment: one a day Hx Substance Use: No Preferred Language: Sinhala Communication Ability: Effective Visual Impairment: Limited Hearing Ability: Normal Supervisor Cold Rolling Required: No Beliefs That Will Affect Care: None marital status: Current Living Situation: Spouse current occupational status: retired How many Children do You have: 2 Feels Safe at Home: Yes Childhood Exposure to Second-Hand Smoke: Yes (parents did ) Diet: low salt caffeine: No Dental Care, Regularly: Yes Physical Activity Frequency: Does not Exercise Physical Activity Frequency Comment: doesn't because of hip Seatbelt Use: always Sunscreen Use: No Do you think of yourself as: straight/heterosexual Assistive Devices: Cane and Glasses Review of Systems Review of Systems: All systems reviewed & are unremarkable except as noted in Subjective Physical Exam Physical Exam: General: NAD, VS as above Resp: normal respiratory effort, lungs clear to auscultation CV: afib, no murmur, Abd: normal bowel sounds, non tender, soft Extremities: Moves all extremities, no edema Neuro: A&O x3, Skin: intact, no lesions noted Results & Data Results & Data Vital Signs (Past 12 Hours) Vital Signs Temp Pulse Pulse Resp BP BP Pulse Ox 01/15/25 11:00 55 L 16 124/73 97 01/15/25 09:30 61 16 132/68 95 01/15/25 08:42 45 L 01/15/25 08:31 55 L 16 96 01/15/25 07:53 98.1 F 59 L 18 158/64 H 99 O2 Del Method 01/15/25 11:00 Room Air 01/15/25 09:30 Room Air 01/15/25 08:42 01/15/25 08:31 Room Air 01/15/25 07:53 Room Air Laboratory Results CBC, coag studies, chemistry reviewed UA reviewed Diagnostic Findings CTA abdomen pelvis reviewed EKG reviewedA-fib slow ventricular response Supervising Physician Co-Signing Physician Notes I personally saw and examined the patient. I independently reviewed the labs, EKG, imaging, problem list, medication list, past medical history and family history. I verified all corona points and agree with Stephanie Baird PA-C with the following exceptions and/or additions: 79 year old male presents to the ER with rectal bleeding. Hemoglobin and hemodynamically stable. O/E irregular HR, regular rhythm, no murmur, Chest CTAB, Abdo SNT A/P Rectal bleeding - for flex sig today per gastroenterology recommendations, trend hemoglobin with AM labs, hold Eliquis PG Care Time/CCT Total # of Minutes Spent Total Time Spent with Patient: Total time spent is greater than 50% in coordination of care (as documented) at patient's floor/unit and/or counseling patient: Coding Level of Care Code 90348 INT INP/OBS CARE 3/75MIN Diagnoses BRBPR (bright red blood per rectum) K62.5 Acute lower GI bleeding K92.2 Atrial fibrillation I48.91"
--- NOTE | 2025-01-15 13:57 | Anesthesiology Consultation ---
Date of Service January 15, 2025 Assessment & Plan Consults Requested medical & cardiac Pulmonary Proposed Anesthesia Risk / Benefits Reviewed With: PT / POA / Parent / Guardian, Accepts Plan and Informed Consent Obtained History Surgery Operation Date: 01/15/25 17:15 Proposed Procedures p Flexible Sigmoidoscopy Dr. Chepe Mo MD Pt with lower GI bleed. Height/Weight Height: 5 ft 5 in Weight: 65.5 kg Allergies Allergy/AdvReac Type Severity Reaction Status Date / Time clavulanic acid AdvReac Intermediate Diarrhea Verified 12/10/24 13:16 Medications Home Medications Medication Instructions Recorded Confirmed Last Taken pefnoppfwyxg-cvafctwx-xxoies 1 tab PO QAM 10/14/22 01/15/25 01/02/23 tablet (Multivitamin 50 Plus tablet) apixaban 5 mg tablet (Eliquis) 5 mg PO BID #180 tabs 02/11/24 01/15/25 Unknown Toprol XL 25 mg tablet,extended 12.5 mg (1/2 x 25 mg) PO QAM #45 06/17/24 01/15/25 Unknown release (metoprolol succinate) tabs hydrocortisone 2.5 % topical cream 1 applic [place] BID PRN hemorrhoids 7 06/26/24 01/15/25 Unknown with perineal applicator days #30 grams (Anusol-HC) nystatin 100,000 unit/gram topical 1 applic topical BID PRN Unknown 09/01/24 01/15/25 Unknown powder NPO Date Last Intake of Fluids: 01/15/25 Time Last Intake of Fluids: 06:30 Date Last Intake of Solids: 01/15/25 Time Last Intake of Solids: 07:00 Past Medical History Medical History Inguinal hernia, bilateral CT 2022 Elevated glucose Parageusia Superficial midline glossitis Perianal abscess Pulmonary nodule 05/2022, 02/2023 unchanged , no further f/u Anemia Acute lower GI bleeding Bradycardia Cholelithiasis 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 no problems since. Ischemic colitis found in 2011 - no treatment, no current issues Exercise / Class Metabolic Activity II 4-5 Yardwork/Stairs/Walk up hill Past Family History Family History Father Brain tumor Mother Macular degeneration Denies family history of Ovarian cancer Prostate cancer Myocardial infarction Breast cancer Lung cancer Colorectal cancer Stroke Past Surgical History Surgical History Hx of detached retina repair Hx of left cataract extraction H/O colonoscopy last 2011; Declines further Colonoscopy History of incision and drainage (1977)perirectal abscess Past Anesthesia History No Hx of Anesthesia Complications and No Family Hx of Anesthesia Complications History of PONV No Hx of PONV and No Hx of Motion Sickness Social History Smoking Status: Former smoker tobacco type: cigarettes Smoking cigarettes per day: 10 Do You Dip or Chew Tobacco: No Hx Alcohol Use: Yes Alcohol type: hard liquor alcohol intake frequency: 0-2 drinks per day Hx Substance Use: No substance use type: does not use Physical Exam Vital Signs Last Vital Signs Temp 37.2 C 01/15/25 13:38 Pulse 56 L 01/15/25 13:38 Resp 16 01/15/25 13:38 BP 127/53 L 01/15/25 13:38 Pulse Ox 98 01/15/25 13:38 O2 Del Method Room Air 01/15/25 13:38 Constitutional no acute distress ENMT Mouth: no dentition abnormality Thyromental Distance: > or= 3.5 Finger Breadths Mallampati Class: II Neck normal visual inspection Respiratory normal respiratory effort; no respiratory distress Auscultation: lungs clear to auscultation bilaterally Cardiovascular Rate/Rhythm: regular rate and regular rhythm Heart Sounds: no murmur Musculoskeletal Spine: normal cervical ROM Psychiatric Orientation: alert and oriented x 3 Testing Laboratory Results 01/15/25 08:26 01/15/25 08: PT 13.5 Seconds (9.0-12.0) H 01/15/25 08: INR 1.3 (0.9-1.1) H 01/15/25 08:26 Urine Color Dark Yellow 01/15/25 Unknown Urine Appearance Clear (Clear) 01/15/25 Unknown Urine pH 6.0 (4.5-7.5) 01/15/25 Unknown Ur Specific [place] 1.025 (1.000-1.030) 01/15/25 Unknown Urine Protein Trace (Negative) H 01/15/25 Unknown Urine Glucose (UA) Negative (Negative) 01/15/25 Unknown Urine Ketones Trace (Negative) H 01/15/25 Unknown Urine Nitrite Negative (Negative) 01/15/25 Unknown Ur Leukocyte Esterase Trace (Negative) H 01/15/25 Unknown Urine WBC (Auto) 0-5 /hpf (0-5) 01/15/25 Unknown Urine RBC (Auto) 0-2 /hpf (0-2) 01/15/25 Unknown U Hyaline Cast (Auto) 0-2 /lpf (0-2) 01/15/25 Unknown U Epithel Cells (Auto) 0-2 /hpf (0-2) 01/15/25 Unknown Urine Bacteria (Auto) None Seen (None Seen) 01/15/25 Unknown Day of Procedure Evaluation. Date of Surgery January 15, 2025 Height/Weight Height: 5 ft 5 in Weight: 65.5 kg Vital Signs Last Vital Signs Temp 37.2 C 01/15/25 13:38 Pulse 56 L 01/15/25 13:38 Resp 16 01/15/25 13:38 BP 127/53 L 01/15/25 13:38 Pulse Ox 98 01/15/25 13:38 O2 Del Method Room Air 01/15/25 13:38 Allergies Allergy/AdvReac Type Severity Reaction Status Date / Time clavulanic acid AdvReac Intermediate Diarrhea Verified 12/10/24 13:16 Medications Home Medications Medication Instructions Recorded Confirmed Last Taken jyxbdkltinbe-dzuwcmah-rhmtnb 1 tab PO QAM 10/14/22 01/15/25 01/02/23 tablet (Multivitamin 50 Plus tablet) apixaban 5 mg tablet (Eliquis) 5 mg PO BID #180 tabs 02/11/24 01/15/25 Unknown Toprol XL 25 mg tablet,extended 12.5 mg (1/2 x 25 mg) PO QAM #45 06/17/24 01/15/25 Unknown release (metoprolol succinate) tabs hydrocortisone 2.5 % topical cream 1 applic [place] BID PRN hemorrhoids 7 06/26/24 01/15/25 Unknown with perineal applicator days #30 grams (Anusol-HC) nystatin 100,000 unit/gram topical 1 applic topical BID PRN Unknown 09/01/24 01/15/25 Unknown powder Past Anesthesia History No Hx of Anesthesia Complications and No Family Hx of Anesthesia Complications History of PONV No Hx of PONV and No Hx of Motion Sickness NPO Date Last Intake of Fluids: 01/15/25 Time Last Intake of Fluids: 06:30 Date Last Intake of Solids: 01/15/25 Time Last Intake of Solids: 07:00 Home Medications Home Medications Medication Instructions Recorded Confirmed Last Taken cyigxdzwsvid-hshjdexe-eqixne 1 tab PO QAM 10/14/22 01/15/25 01/02/23 tablet (Multivitamin 50 Plus tablet) apixaban 5 mg tablet (Eliquis) 5 mg PO BID #180 tabs 02/11/24 01/15/25 Unknown Toprol XL 25 mg tablet,extended 12.5 mg (1/2 x 25 mg) PO QAM #45 06/17/24 01/15/25 Unknown release (metoprolol succinate) tabs hydrocortisone 2.5 % topical cream 1 applic [place] BID PRN hemorrhoids 7 06/26/24 01/15/25 Unknown with perineal applicator days #30 grams (Anusol-HC) nystatin 100,000 unit/gram topical 1 applic topical BID PRN Unknown 09/01/24 01/15/25 Unknown powder Exercise / Class Metabolic Activity Metabolic Activity: II 4-5 Yardwork/Stairs/Walk up hill Physical Exam Constitutional: no acute distress Mouth: no dentition abnormality Thyromental Distance: > or= 3.5 Finger Breadths Mallampati Class: II Neck: + visual inspection normal Respiratory: + respiratory effort normal and + clear to auscultation bilaterally; no respiratory distress Cardiovascular: + regular rate and + regular rhythm; no murmur Musculoskeletal: no limited cervical ROM Psychiatric: + alert and + oriented x 3 Proposed Anesthesia Risk / Benefits Reviewed With: PT / POA / Parent / Guardian, Accepts Plan and Informed Consent Obtained
--- NOTE | 2025-01-15 14:49 | Anesthesiology Progress Note ---
Date of Service January 15, 2025 Anesthesia Post Procedure Vital Signs Vital Signs: Temp Pulse Pulse Resp BP BP Pulse Ox 01/15/25 13:38 37.2 C 56 L 16 127/53 L 98 01/15/25 13:00 61 22 157/53 H 95 01/15/25 11:00 55 L 16 124/73 97 01/15/25 09:30 61 16 132/68 95 01/15/25 08:42 45 L 01/15/25 08:31 55 L 16 96 01/15/25 07:53 36.7 C 59 L 18 158/64 H 99 O2 Del Method 01/15/25 13:38 Room Air 01/15/25 13:00 01/15/25 11:00 Room Air 01/15/25 09:30 Room Air 01/15/25 08:42 01/15/25 08:31 Room Air 01/15/25 07:53 Room Air Transfer of Care Handoff Completed per policy Notes Mental Status: alert / awake / arousable and participated in evaluation Nausea / Vomiting: adequately controlled Pain: adequately controlled Airway Patency, RR, SpO2: stable & adequate BP & HR: stable & adequate Hydration State: stable & adequate Anesthetic Complications: no major complications apparent and Pt Satisfied with anesthetic care
--- NOTE | 2025-01-15 15:09 | Communication Note ---
Date of Service: January 15, 2025 Large pedunculated polyp with surface hemorrhage. Likely source of bleeding. Not removed in this gentleman took Eliqumagaly today. Recommend hold Kd jolly olonoscopy and polypectomy 48 to 72 hours.
--- NOTE | 2025-01-15 15:16 | GI REPORT ---
[facility] Patient: PAUL CHAUDHRY : 1945 Sex at : Male Age: 79 Years Procedure: Flexible Sigmoidoscopy Date: 01/15/2025 Attending Physician: Andre Mo MD Referring MD: Selina Jo Md Indications: - Rectal hemorrhage Medications: - Monitored Anesthesia Care Complications: - No immediate complications. Estimated Blood Loss: - Estimated blood loss: None. Procedure: - Prior to the procedure, a History and Physical was performed, and patient medications and allergies were reviewed. The patient's tolerance of previous anesthesia was also reviewed. The risks and benefits of the procedure and the sedation options and risks were discussed with the patient. All questions were answered, and informed consent was obtained. Prior Anticoagulants: The patient has taken Eliquis (apixaban), last dose was day of procedure. ASA Grade Assessment: III - A patient with severe systemic disease. After reviewing the risks and benefits, the patient was deemed in satisfactory condition to undergo the procedure. - The adult colonoscope was introduced through the anus and advanced to the sigmoid colon. - The flexible sigmoidoscopy was accomplished without difficulty. - The patient tolerated the procedure well. - The quality of the bowel preparation was good. Findings: - The digital rectal exam was normal. Pertinent negatives include no palpable rectal lesions. - A large (1 cm or greater) pedunculated polyp was found in the sigmoid colon. The polyp was pedunculated, had occupied a large portion of the lumen. We removed this he took Eliquis today. Hold Eliquis for minimum 48 hours prior to polypectomy. Polypectomy facilitated by injecting adrenaline into the stalk of the polyp head. Impression: - One large (1 cm or greater) polyp in the sigmoid colon. - No specimens collected. - Large pedunculated polyp in the sigmoid colon with surface hemorrhage likely source of bleeding. Will need to be off Eliquis for safe removal. Recommendation: - Off Eliquis for 48 to 72 hours prior to polypectomy. Needs a full colonoscopy. Will try to arrange as an outpatient. Procedure Code(s): - 11787, Sigmoidoscopy, flexible; diagnostic, including collection of specimen(s) by brushing or washing, when performed (separate procedure) Diagnosis Code(s): - K62.5, Hemorrhage of anus and rectum - D12.5, Benign neoplasm of sigmoid colon CPT(R) - 2023 copyright [employer]. All Rights Reserved. The CPT codes, CCI edits and ICD codes generated are intended as suggestions and were generated based on input data. These codes are preliminary and upon roll over press operator review may be revised to meet current compliance and payer requirements. The provider is responsible for the final determination of appropriate codes, and modifiers. Andre Mo MD This document has been electronically signed. Note Initiated:01/15/2025 Note Completed:01/15/2025 3:15 PM \\[id number]
--- NOTE | 2025-01-15 15:17 | Communication Note ---
Date of Service: January 15, 2025 Observe overnight. Can be discharged tomorrow if hemoglobin stable and no linda bleeding. We will try to get him a colonoscopy for January 20. Reintroduce Eliquis, if bleeding ceases. Eliquis should be held on the and 19 January for a colonoscopy on the
--- NOTE | 2025-01-15 15:52 | Electrocardiogram Report ---
Test Reason : Blood Pressure : */* mmHG Vent. Rate : 54 BPM Atrial Rate : * BPM P-R Int : * ms QRS Dur : 134 ms QT Int : 456 ms P-R-T Axes : * -65 123 degrees QTcB Int : 432 ms Atrial fllutter with slow ventricular response Left axis deviation Left ventricular hypertrophy with QRS widening and repolarization abnormality Abnormal ECG Confirmed by Macario Tyler ([id number]) on 01/15/2025 3:52:16 PM Referred By: REFERRED SELF Confirmed By: Macario Tyler
--- NOTE | 2025-01-15 16:03 | Anesthesiology Progress Note ---
Date of Service January 15, 2025 Anesthesia Post Procedure Vital Signs Vital Signs: Temp Pulse Pulse Resp BP BP Pulse Ox 01/15/25 15:41 58 L 18 97 01/15/25 15:26 62 18 118/65 96 01/15/25 15:11 59 L 16 106/58 L 96 01/15/25 13:38 37.2 C 56 L 16 127/53 L 98 01/15/25 13:00 61 22 157/53 H 95 01/15/25 11:00 55 L 16 124/73 97 01/15/25 09:30 61 16 132/68 95 01/15/25 08:42 45 L 01/15/25 08:31 55 L 16 96 01/15/25 07:53 36.7 C 59 L 18 158/64 H 99 O2 Del Method 01/15/25 15:41 Room Air 01/15/25 15:26 Room Air 01/15/25 15:11 Room Air 01/15/25 13:38 Room Air 01/15/25 13:00 01/15/25 11:00 Room Air 01/15/25 09:30 Room Air 01/15/25 08:42 01/15/25 08:31 Room Air 01/15/25 07:53 Room Air Transfer of Care Handoff Completed per policy Notes Mental Status: alert / awake / arousable Patient Amnestic to Procedure: Yes Nausea / Vomiting: adequately controlled Pain: adequately controlled Airway Patency, RR, SpO2: stable & adequate BP & HR: stable & adequate Hydration State: stable & adequate Anesthetic Complications: no major complications apparent
[2025-01-15] MEDS ORDERED: ACETAMINOPHEN 1,000 MG/100 ML VIAL IV PRN (16:12)
[2025-01-15] MEDS ORDERED: ONDANSETRON INJ 2 MG/ML 2 ML VIAL IV PRN (16:12)
[2025-01-15] MEDS ORDERED: ACETAMINOPHEN 500 MG TAB PO PRN (16:26)
[2025-01-15] MEDS: PROPOFOL IV EMULSION 10 MG/ML 20 ML VIAL IV ONE (18:49)
[2025-01-15] MEDS: LIDOCAINE 2% 2 ML VIAL/AMP(20MG/ML) INFIL ONE (18:49)
[2025-01-15 21:13] LABS: Hematocrit (blood only) 38.2 % (42.0-52.0); Hemoglobin 13.8 g/dl (14.0-18.0); Mean Corpuscular Hemoglobin 33.6 pg (25.0-34.0); Mean Corpuscular Volume 92.9 fL (80.0-100.0); Platelet Count 149 K/uL (130-400); RDW Standard Deviation 46.2 fL (36.4-46.3); Red Blood Count 4.11 M/uL (4.70-6.10); White Blood Count 5.77 K/ul (4.8-10.8)
[2025-01-15 23:15] VITALS: TEMP 97.9
[2025-01-16 07:03] LABS: Hematocrit (blood only) 39.0 % (42.0-52.0); Hemoglobin 13.5 g/dl (14.0-18.0); Mean Corpuscular Hemoglobin 32.1 pg (25.0-34.0); Mean Corpuscular Volume 92.9 fL (80.0-100.0); Platelet Count 147 K/uL (130-400); RDW Standard Deviation 46.8 fL (36.4-46.3); Red Blood Count 4.20 M/uL (4.70-6.10); White Blood Count 5.35 K/ul (4.8-10.8)
--- NOTE | 2025-01-16 07:23 | Hospitalist Progress Note ---
Date of Service January 16, 2025 Assessment & Plan Admission and Anticipated Discharge Date Admission Date: January 15, 2025 Results & Data Results & Data Vital Signs (Past 12 Hours) Vital Signs Temp Pulse Resp BP Pulse Ox O2 Del Method 01/15/25 22:45 36.6 C 55 L 16 124/61 95 Room Air
[2025-01-16 08:05] VITALS: BP 143/76; PULSE 57; RESP 17; O2SAT 96
[2025-01-16] MEDS: METOPROLOL SUCC 25MG EXT REL TAB PO SCH (08:36)
--- NOTE | 2025-01-16 10:34 | Discharge Summary ---
"Date of Service January 16, 2025 Admission HPI Per Admitting Provider Anders is an 79-year-old male with a past medical history of hypertension, A- fib on Eliquis, heart failure preserved ejection fraction and hyperlipidemia, managed by diet who presents to the ER with 1 episode of rectal bleeding. Follows with GI and takes 1one half capful of MiraLAX daily to prevent constipation, he reports that this works well for him. States when he woke up this morning he was in his normal state of health and then went to have a bowel movement and noticed blood in his stool, in the toilet bowl and on the toilet paper. He denies any lightheadedness or dizziness. He has not had any further episodes of bloody stool. He does have a history of hemorrhoids and repeat reports that they do bleed sometimes but never to this degree. He does report he had a similar episode in 2011, at that time he had a colonoscopy done and was found to have 1 polyp where he was told that it was not worth it to remove it. He took his medications this morning, including his Eliquis And he wishes to be a DO NOT RESUSCITATE Admission Exam Per Admitting Provider General: NAD, VS as above Resp: normal respiratory effort, lungs clear to auscultation CV: afib, no murmur, Abd: normal bowel sounds, non tender, soft Extremities: Moves all extremities, no edema Neuro: A&O x3, Skin: intact, no lesions noted Principal Diagnosis Sigmoid polyp Discharge Exam General: NAD, VS as above Resp: normal respiratory effort, lungs clear to auscultation CV: afib, no murmur, Abd: normal bowel sounds, non tender, soft Extremities: Moves all extremities, no edema Neuro: A&O x3, Skin: intact, no lesions noted Discharge Data Allergies Allergy/AdvReac Type Severity Reaction Status Date / Time clavulanic acid AdvReac Intermediate Diarrhea Verified 12/10/24 13:16 Consultations 01/15/25 11:45 ED Decision to Admit Stat Procedures Performed Operation Date: 01/15/25 17:15 Actual Procedures p Flexible Sigmoidoscopy - Andre Mo MD Ordered Studies 01/15/25 08:33 CTA abdomen pelvis w con [CT angio abdomen pelvis w con] Stat Hospital Course (1) Acute lower GI bleeding: (2) Sigmoid polyp: (3) Atrial fibrillation: (4) Anticoagulant long-term use: Kishan Mcnamara is an 79-year-old male with a past medical history of hypertension, A- fib on Eliquis, heart failure preserved ejection fraction and hyperlipidemia, managed by diet who presents to the ER with 1 episode of rectal bleeding. Stable hemoglobin, but CTA concerning for angiodysplasia - admit for GI consultation #rectal bleeding - one episode AM 1030, pt asymptomatic. CTA A/P concerning enhancing vessel in rectosigmoid concern for angiodysplasia. GI proceeded with Sigmoidoscopy. Diagnosed a polyp. Will do polypectomy on 01/20/2025. Hold Eliquis on 01/18/2025 - 01/20/2025 Hb stable #afib | HFpEF - no acute exacerbation, manages HF with low sodium diet ekg confirms afib, rate controlled continue metoprolol and elliquis Hold elliquis 2 days befoe surgery. Total Time Total Time Spent Total Time Spent (In Minutes): See attending's attestation Discharge Plan Discharge Items Patient Disposition: Home - Self-Care Reason For Visit: RECTAL BLEED Discharge Diagnosis: Pedunculated Polyp of sigmoid colon Condition on Discharge: Fair Activity: As commented below Non-emergency contact: Primary Care Provider and Adoption Counselor Call non-emergency contact if: your symptoms worsen Follow-up/Referrals: Calin Padgett, [Primary Care Provider] - 01/23/25 1:00 pm Diet: Heart Healthy Addtl Attending Provider Instructions: You were admitted to the hospital for rectal bleeding.Gastroenterology evaluated you with flexible sigmoidoscopy for you, a pedunculated polyp was found in the exam. This needs to be removed, however it was not during this visit because you were still on blood thinner. Hence they have planned for procedure on 01/20/2025. Hence they recommend you holding your Eliquis on 01/18 and 01/19 and have scheduled surgery. Meanwhile continue taking your Eliquis, regular diet with more of fibres and keep stool soft. Surgery team will call you back with the details for procedure and follow their recommendation. A discharge summary will be sent to your primary care physician to ensure continuity of care. Please bring this discharge summary with you to your next office appointment so that your provider can review it at that time. Medications: Your medication list has been reviewed and reconciled upon discharge to ensure accuracy and continuity of care. An updated list of all your medications is included with your hospital discharge paperwork. Please review this list closely and make note of any changes to your medications. 1. CONTINUE ELIQUIS FOR NOW. PLEASE HOLD ON 01/18 and 01/18. Follow up appointments: - Make a follow up appointment with your PCP within the next week. It is very important that you follow up with them shortly after discharge from the hospital. - Keep all of your follow up appointments as already scheduled. If you cannot make an appointment, notify your provider. CONTACT YOUR PRIMARY CARE PROVIDER if you experience any of the following: - Difficulty following your treatment plan - Difficulty taking any of your medications CALL 911 OR GO TO THE EMERGENCY DEPARTMENT if you experience any of the following: - Severe per rectal bleeding, lightheadedness and syncope. - Sudden, severe abdominal pain or nausea/vomiting - Severe chest pain or chest pain that radiates to your jaw or arm - Sudden, severe shortness of breath or difficulty breathing Pending Studies at Discharge: No Stand-Alone Forms: My [facility], Smoking Cessation Medications and DC Order Prescriptions: Continued metoprolol succinate [Toprol XL] 25 mg tablet extended release 24 hr 12.5 mg PO QAM Qty: 45 3RF Rx Instructions: ERIKA hydrocortisone [Anusol-HC] 2.5 % cream with perineal applicator 1 applic NM BID PRN (Reason: hemorrhoids) 7 Days Qty: 30 0RF peg 3350-electrolytes [GaviLyte-G] 236-22.74-6.74 -5.86 gram recon soln 240 ml PO Q10M Qty: 4000 0RF Rx Instructions: until fecal effluent is clear nystatin 100,000 unit/gram powder 1 applic topical BID PRN (Reason: Unknown) Multivitamin 50 Plus Tablet 1 tab PO QAM Eliquis 5 mg tablet 5 mg PO BID Qty: 180 3RF Discharge Orders: Discharge Order (Routine); Ordered 01/16/25 Ordered By: Ngozi Duarte/Other Patient Handouts: Colon and Rectal Polyps Admission Data Admit Date/Time: 01/15/25 12:30 Attending Provider: Macario Vazquez Admit Provider: Marvin Lujan Primary Care Provider: Calin Padgett Other Providers: Darrel Mallory; Marvin Lujan Other Interventions: Discharge Summary Assessment (RN) Last Done: 01/16/25 10:45 Supervising Physician Co-Signing Physician Notes Attending attestation Pt seen and examined in concert with Dr. Muñiz. In agreement with the documented findings as noted in the resident documentation with any exceptions or additions as noted here. Resting in chair at bedside, mobile at baseline with supportive devices in the room with care team. Reports 2x normal BM. VS as noted. On examination, S1/S2 nl RRR no MCG. CTAB. Abd NT/ND BS+ve Bright red blood per rectum - GI Consult - s/p flex sig inpatient, follow up with GI on sunday with prep and endoscopic evaluation for polypectomy. Extensive precautions re: recurring symptoms. Would benefit from repeat CBC in outpatient setting. Else see resident documentation as noted. Total attending physician time spent with this patient's care on the day of discharge: 35 minutes."
== END 2025-01-16 11:54 | disposition home or self-care (01) ==
LOC: ED 07:48 → 3E 07:48 → SUATTDRO 12:30 → 3E 14:19
DX: K59.00 Constipation, unspecified; I11.0 Hypertensive heart disease with heart failure; D12.5 Benign neoplasm of sigmoid colon; K62.5 Hemorrhage of anus and rectum; Z88.8 Allergy status to other drugs, medicaments and biological substances; I27.20 Pulmonary hypertension, unspecified; D64.9 Anemia, unspecified; K55.9 Vascular disorder of intestine, unspecified; Z79.899 Other long term (current) drug therapy; E78.5 Hyperlipidemia, unspecified; Z87.891 Personal history of nicotine dependence; I48.91 Unspecified atrial fibrillation; I50.30 Unspecified diastolic (congestive) heart failure

== ENCOUNTER 2025-01-20 16:23 | Observation (INO) ==
[2025-01-20 17:29] LABS: Hematocrit (blood only) 45.5 % (42.0-52.0); Hemoglobin 15.7 g/dl (14.0-18.0); Mean Corpuscular Hemoglobin 32.8 pg (25.0-34.0); Mean Corpuscular Volume 95.0 fL (80.0-100.0); Platelet Count 167 K/uL (130-400); RDW Standard Deviation 47.7 fL (36.4-46.3); Red Blood Count 4.79 M/uL (4.70-6.10); White Blood Count 7.33 K/ul (4.8-10.8)
[2025-01-20 17:50] LABS: Alanine Aminotransferase 25.0 U/L (7-52); Albumin Globulin Ratio 1.5 (0.9-2); Albumin Level 4.7 gm/dl (3.4-5.0); Alkaline Phosphatase 67.0 U/L (34-104); Anion Gap 16.0 (3-11); Bilirubin,Total 6.5 mg/dl (0.2-1.0); Blood Urea Nitrogen 24.0 mg/dl (6-23); Calcium 10.1 mg/dl (8.6-10.3); Carbon Dioxide 22.0 mmol/L (21-32); Chloride 103.0 mmol/L (98-107); Creatinine Clr Calc Pharmacy 46.2 ml/min; Globulin 3.2 gm/dl (2.5-4.0); Glucose 99.0 mg/dl (70-99(Fasting)); Potassium 3.8 mmol/L (3.5-5.1); Sodium 141.0 mmol/L (136-145); Total Protein 7.9 gm/dl (6.0-8.3)
[2025-01-20 18:02] LABS: INR 1.2 (0.9-1.1); Partial Thromboplastin Time 28 Seconds (21-31); Prothrombin Time 12.4 Seconds (9.0-12.0)
[2025-01-20] MEDS: PLASMA-LYTE A 1,000 ML IV ONE (18:34)
[2025-01-20] MEDS: OPTIRAY 320 125ml IV ONE (19:13)
--- NOTE | 2025-01-20 19:26 | Emergency Department Note ---
Impression & Plan Acute lower GI bleeding, Symptomatic anemia, Demand ischemia, Elevated lactic acid level, S/P colonoscopic polypectomy ED Provider Note NAME: PAUL Rodrigez PREBISH AGE: 79 SEX: M : 1945 ARRIVES VIA: Walk-In INFORMANT: Patient, ED PROVIDER(S): Sanju Alamo DO CHIEF COMPLAINT: rectal bleeding HPI: This is an 79-year-old male with the PMHx of paroxysmal atrial fibrillation on chronic anticoagulation with Eliquis, ongoing lower GI bleeding s/p colonoscopy today with polypectomy x3, BPH, CHF, HTN and HLD presenting to [facility] for further evaluation of rectal bleeding. Patient is accompanied by his who provide additional history. Patient states that he was here earlier this afternoon for colonoscopy with Dr. Mcfadden. He reports that he had 3 polyps removed and clips were placed. Patient states that when he returned home he had some light rectal bleeding with some clots. He states that this turned into profuse rectal bleeding. He reports bright red blood per rectum with all bowel movements. He reports 1-2 bloody bowel movements per hour. He states he has not taken his apixaban since Sunday. Patient reports some crampy lower abdominal pain but no significant pain. They deny fever or chills. No cough or congestion. Denies chest pain or palpitations. No shortness of breath. They deny nausea and vomiting. No urinary complaints. Patient denies recent changes in medications or OTC supplements. Patient offers no other complaints, today. ADDITIONAL HISTORY OBTAINED: Per HPI Chronic Medical/Social Conditions Affecting Care: Per HPI PAST MEDICAL HISTORY: See Below PAST SURGICAL HISTORY: See Below FAMILY HISTORY: See Below SOCIAL HISTORY: See Below HOME MEDICATIONS: See Below ALLERGIES: See Below VITALS: See Below PHYSICAL EXAMINATION: GENERAL: Sitting up in bed, alert, ill appearing, well nourished, no distress, non-toxic EYE EXAM: normal conjunctiva. PERRL and EOM's grossly intact. OROPHARYNX: no exudate, no erythema, lips, buccal mucosa, and tongue normal and mucous membranes are moist NECK: supple, no nuchal rigidity, no adenopathy, non-tender LUNGS: Clear to auscultation. Normal chest wall mechanics HEART: no murmurs, regular rate, regular rhythm ABDOMEN: abdomen soft, non-tender, no masses, no rebound or guarding. BACK: Back is symmetrical on inspection and there is no deformity, no midline tenderness, no CVA tenderness. SKIN: no rashes and no bruising. he is pale with slight jaundiced skin. UPPER EXTREMITIES: upper extremities are grossly normal. LOWER EXTREMITIES: No pitting edema. NEURO EXAM: Normal sensorium, GCS 15, normal speech, no gross weakness of arms, no gross weakness of legs. MEDICAL DECISION MAKING: Differential diagnoses includes but not limited to postoperative bleeding, acute lower GI bleeding, hemorrhoidal bleeding, intestinal perforation, diverticulitis, malignancy, symptomatic anemia, upper GI bleeding In summary, this is a 79 year old male who presented with rectal bleeding. Differential as above. Nursing notes and pertinent past medical records reviewed. Vital signs reviewed and the patient is afebrile and HDS. He is on a beta medardo raising concern for failure to amount a tachycardic response. History and presentation revealed ongoing issues with LGIB now s/p colonoscopy with polypectomy x3 this afternoon with Dr. Hallman. He continues to large volume bloody BMs since discharge raising concerns for post colonoscopy complication. While the patient does take chronic anticoagulation for afib, he has held Apixaban since Sunday. Physical examination revealed as above. As a result of my initial evaluation, IV access was established and the patient was placed on CCRM. Therapeutics ordered include IVFR while awaiting further diagnostics including labs and CTA imaging. At this point, I am suspicious for acute LGIB but overall hemodynamically stable without evidence of peritonitis. Diagnostics interpreted by me include EKG and cardiac monitoring as listed below: -Cardiac Monitoring: An order was placed for continuous cardiac monitoring. The monitor shows a rate of 50-80s with regular rhythm. -ECG: EKG independently interpreted by me reveals normal sinus rhythm with sinus arrhythmia at a ventricular rate of [address] segment changes to suggest STEMI. There is left axis deviation. Very poor baseline on this EKG with artifact throughout the precordial leads. -Repeat ECG: Rate controlled atrial fibrillation at [address] segment changes to suggest STEMI. Patient completed laboratory studies and imaging. Results independently interpreted by me are stable Hgb. no leukocytosis or anemia. There is no significant electrolyte derangements or significant kidney dysfunction from baseline. No changes in LFTs with elevated tBili that is comparable from baseline. The patient was managed with IVFR and protonix. Hemoglobin was rechecked showing acute drop in hemoglobin of 1.5 g from previous. I do feel the patient has acute GI bleeding at this time. Suspect lower GI bleeding in the setting of his recent colonoscopy and clips from 3 polyps that were removed. GI bleeding is further complicated by troponin leak as well as elevated lactate. The patient's vital signs are normal. He does have a beta-medardo on board and will likely not be able to mount a tachycardic response to his acute blood loss anemia. The patient was discussed with Dr. Sloan of gastroenterology at 1924. I updated him on ongoing bright red bright blood per rectum from postoperative colonoscopy today. Patient will stay in the hospital for over night for close observation. CTA returned positive for acute lower GI bleeding with active hemorrhage in the sigmoid colon. Dr. Sloan was paged again and agreeable to take to the OR Ultimately, the decision was made to admit the patient for acute LGIB complicated by anemia, elevated lactate and troponinemia. I discussed the case with the hospitalist service via telephone/Tiger[employer] and they are agreeable to admit the patient to their services. Based on the above, including the patient's age, coexisting illnesses, labs, imaging, and exam findings the decision to treat as an inpatient. I discussed the patient with the hospitalist team who recommended admission to their services. They received the medications, treatments, interventions indicated above and their condition remained stable. I discussed my findings with the patient and their family and they understand and agree with the treatment plan. All patient / family questions were answered to their satisfaction. Escalation of care was considered including ICU level of care but the patient will be going straight to OR for intervention. [place] safe to be reassessed following procedure. Case also considered for transfer due to IR capabilities but GI felt safe to manage at [facility]. Case discussed with consultants including Dr. Sloan (Gastroenterology) and Dr. Galloway ([facility] Hospitalist). Consults/Care Managements Discussions: Per MDM ER treatment provided: See above Procedures:none Critical Care: None The chart was completed utilizing [employer] Speech voice recognition software. Grammatical errors, random word insertions, pronoun errors, and incomplete sentences are an occasional consequence of this system due to software limitations, ambient noise, and hardware issues. Any formal questions or concerns about the content, text, or information contained within the body of this dictation should be directly addressed to the physician for clarification. Past Med/Surg History Problem List (Updated 01/21/25 @ 03:56 by Sanju Alamo DO) S/P colonoscopic polypectomy (Acute) Elevated lactic acid level (Acute) Demand ischemia (Acute) Symptomatic anemia (Acute) Acute lower GI bleeding (Acute) S/P colonoscopy with polypectomy Encounter for pre-operative examination Sigmoid polyp Acute lower GI bleeding (Acute) BRBPR (bright red blood per rectum) (Acute) Gastritis BPH (benign prostatic hyperplasia) Chronic heart failure with preserved ejection fraction Osteoarthritis of right hip Elevated bilirubin (Acute) Tricuspid regurgitation Hemorrhoids Constipation Generalized osteoarthritis (Chronic) Anticoagulant long-term use (Chronic) Dyslipidemia (Chronic) managed with diet Hypertension (Chronic) Mitral regurgitation (Chronic) Pulmonary hypertension (Chronic) Atrial fibrillation (Chronic) follows with dr espinoza. no cardioversion. controlled with medications. Medical History Sigmoid polyp History of rectal bleeding (01/15/25) Hemorrhoids Osteoarthritis of right hip needs replacement Tricuspid regurgitation had echo in dr. perales's office last week 12/2024 GERD (gastroesophageal reflux disease) Hx of gastritis BPH (benign prostatic hyperplasia) Chronic heart failure with preserved ejection fraction Dyslipidemia Atrial fibrillation follows with dr espinoza- had echo at his office last week. no cardioversion. controlled with medications. 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 no problems since. Ischemic colitis found in 2011 - no treatment, no current issues Surgical History Hx of detached retina repair (06/2024) Hx of bilateral cataract extraction (2022) Hx of detached retina repair (06/2024) H/O colonoscopy last 2011; Declines further Colonoscopy History of incision and drainage (1977) (1977)perirectal abscess Family History Father Brain tumor Mother Macular degeneration Denies family history of Ovarian cancer Prostate cancer Myocardial infarction Breast cancer Lung cancer Colorectal cancer Stroke Social History Smoking Status: Never smoker Tobacco Type: Cigarettes Age Started Using Tobacco: 15; Age Quit Using Tobacco: 32; packs per day: 1; Cigarettes Per Day: 10; Second Hand Exposure: No; Do You Dip or Chew Tobacco: No; Hx Alcohol Use: No Hx Substance Use: No Preferred Language: Estonian Communication Ability: Effective Visual Impairment: Limited Hearing Ability: Normal Tax Examiner Required: No Beliefs That Will Affect Care: None marital status: Current Living Situation: Spouse current occupational status: retired How many Children do You have: 2 Feels Safe at Home: Yes Childhood Exposure to Second-Hand Smoke: Yes (parents did ) Diet: low salt caffeine: No Dental Care, Regularly: Yes Physical Activity Frequency: Does not Exercise Physical Activity Frequency Comment: doesn't because of hip Seatbelt Use: always Sunscreen Use: No Do you think of yourself as: straight/heterosexual Assistive Devices: Cane and Glasses Allergies Allergies Allergy/AdvReac Type Severity Reaction Status Date / Time clavulanic acid AdvReac Intermediate Diarrhea Verified 01/20/25 20:53 Home Meds Home Medications Medication Instructions Recorded Confirmed rovjwyyjchnd-xuemsydk-quknit 1 tab PO QAM 10/14/22 01/20/25 tablet (Multivitamin 50 Plus tablet) nystatin 100,000 unit/gram topical 1 applic topical BID PRN Unknown 09/01/24 01/20/25 powder acetaminophen 500 mg tablet 1,000 mg PO Q6H PRN Pain 01/19/25 01/20/25 polyethylene glycol 3350 17 gram 8.5 g PO DAILY 01/19/25 01/20/25 oral powder packet (Miralax) Previous Rx's Medication Instructions Recorded Toprol XL 25 mg tablet,extended 12.5 mg (1/2 x 25 mg) PO QAM #45 06/17/24 release (metoprolol succinate) tabs hydrocortisone 2.5 % topical cream 1 applic FL BID PRN hemorrhoids 7 06/26/24 with perineal applicator days #30 grams (Anusol-HC) peg 3350-electrolytes 236 240 ml PO Q10M #4,000 mL 01/15/25 gram-22.74 gram-6.74 gram-5.86 gram solution (GaviLyte-G) apixaban 5 mg tablet (Eliquis) 5 mg PO BID #180 tabs 01/16/25 Results & Data (ED) Vital Signs Vital Signs - 24 hr 01/20/25 16:46 01/20/25 18:38 01/20/25 18:42 Temperature 36.8 C Temperature Source Temporal Artery Scan Pulse Rate 66 64 62 Pulse Rate [Apical] Pulse Rate from SpO2 Sensor 63 Pulse Rhythm [Apical] Respiratory Rate 18 24 Respiratory Effort / Characteristics Respiratory Depth Respiratory Pattern Blood Pressure 143/70 H Blood Pressure [Right Arm] Blood Pressure Mean 94 Blood Pressure Mean [Right Arm] Blood Pressure Position [Right Arm] Pulse Oximetry 97 97 Oxygen Delivery Method Room Air Oxygen Flow Rate Sepsis New/Unexplained Change in Mental Status No Sepsis Action Taken by Nursing No Action Required 01/20/25 18:54 01/20/25 18:54 01/20/25 18:57 Temperature Temperature Source Pulse Rate 62 Pulse Rate [Apical] Pulse Rate from SpO2 Sensor 62 Pulse Rhythm [Apical] Respiratory Rate 16 23 Respiratory Effort / Characteristics Non-Labored Spontaneous Respiratory Depth Normal Respiratory Pattern Regular Blood Pressure Blood Pressure [Right Arm] 139/69 Blood Pressure Mean Blood Pressure Mean [Right Arm] 92 Blood Pressure Position [Right Arm] Semi-fowlers Pulse Oximetry 97 97 99 Oxygen Delivery Method Room Air Room Air Oxygen Flow Rate Sepsis New/Unexplained Change in Mental Status Sepsis Action Taken by Nursing 01/20/25 19:00 01/20/25 19:39 01/20/25 19:39 Temperature Temperature Source Pulse Rate 62 61 Pulse Rate [Apical] Pulse Rate from SpO2 Sensor 62 60 Pulse Rhythm [Apical] Respiratory Rate 21 17 Respiratory Effort / Characteristics Respiratory Depth Respiratory Pattern Blood Pressure Blood Pressure [Right Arm] 144/58 H Blood Pressure Mean Blood Pressure Mean [Right Arm] 86 Blood Pressure Position [Right Arm] Semi-fowlers Pulse Oximetry 99 99 Oxygen Delivery Method Oxygen Flow Rate Sepsis New/Unexplained Change in Mental Status Sepsis Action Taken by Nursing 01/20/25 19:48 01/20/25 19:54 01/20/25 20:06 Temperature Temperature Source Pulse Rate 63 51 L 59 L Pulse Rate [Apical] Pulse Rate from SpO2 Sensor 59 L 51 L 59 L Pulse Rhythm [Apical] Respiratory Rate 13 15 16 Respiratory Effort / Characteristics Respiratory Depth Respiratory Pattern Blood Pressure Blood Pressure [Right Arm] Blood Pressure Mean Blood Pressure Mean [Right Arm] Blood Pressure Position [Right Arm] Pulse Oximetry 99 100 99 Oxygen Delivery Method Room Air Oxygen Flow Rate Sepsis New/Unexplained Change in Mental Status Sepsis Action Taken by Nursing 01/20/25 20:12 01/20/25 20:50 01/20/25 21:05 Temperature 36.6 C Temperature Source Oral Pulse Rate 60 Pulse Rate [Apical] 60 Pulse Rate from SpO2 Sensor 59 L Pulse Rhythm [Apical] Respiratory Rate 18 19 Respiratory Effort / Characteristics Non-Labored Spontaneous Respiratory Depth Normal Respiratory Pattern Regular Blood Pressure Blood Pressure [Right Arm] 131/77 139/81 Blood Pressure Mean Blood Pressure Mean [Right Arm] 95 100 Blood Pressure Position [Right Arm] Semi-fowlers Semi-fowlers Pulse Oximetry 100 98 Oxygen Delivery Method Room Air Oxygen Flow Rate Sepsis New/Unexplained Change in Mental Status Sepsis Action Taken by Nursing 01/20/25 22:10 Temperature 36 C L Temperature Source Temporal Artery Scan Pulse Rate Pulse Rate [Apical] 79 Pulse Rate from SpO2 Sensor Pulse Rhythm [Apical] Regular Respiratory Rate 15 Respiratory Effort / Characteristics Non-Labored Spontaneous Respiratory Depth Normal Respiratory Pattern Regular Blood Pressure Blood Pressure [Right Arm] 145/60 H Blood Pressure Mean Blood Pressure Mean [Right Arm] 88 Blood Pressure Position [Right Arm] Pulse Oximetry 100 Oxygen Delivery Method Nasal Cannula Oxygen Flow Rate 4 Sepsis New/Unexplained Change in Mental Status Sepsis Action Taken by Nursing Laboratory Data 01/20/25 23:46 01/20/25 17:06 Lab Results 01/20/25 01/20/25 01/20/25 Range/Units 17:06 17:10 18:41 WBC 7.33 (4.8-10.8) K/ul RBC 4.79 (4.70-6.10) M/uL Hgb 15.7 (14.0-18.0) g/dl Hct 45.5 (42.0-52.0) % MCV 95.0 (80.0-100.0) fL MCH 32.8 (25.0-34.0) pg MCHC 34.5 (32.0-36.0) g/dL RDW Std Deviation 47.7 H (36.4-46.3) fL RDW Coeff of Loretta 13.6 (11.5-14.5) % Plt Count 167 (130-400) K/uL MPV 10.7 (9.4-12.4) fL PT 12.4 H (9.0-12.0) Seconds INR 1.2 H (0.9-1.1) APTT 28 (21-31) Seconds PTT Ratio 1.0 Sodium 141 (136-145) mmol/L Potassium 3.8 (3.5-5.1) mmol/L Chloride 103 (98-107) mmol/L Carbon Dioxide 22 (21-32) mmol/L Anion Gap 16 H (3-11) BUN 24 H (6-23) mg/dl Creatinine 1.09 (0.6-1.4) mg/dl Est Cr Clr Drug Dosing 46.2 ml/min eGFR 68.18 BUN/Creatinine Ratio 22.0 H (10-20) Glucose 99 (70-99(Fasting)) mg/dl Lactate 2.2 H* (0.4-2.0) mmol/L Calcium 10.1 (8.6-10.3) mg/dl Total Bilirubin 6.5 H (0.2-1.0) mg/dl AST 35 (13-39) U/L ALT 25 (7-52) U/L Alkaline Phosphatase 67 (34-104) U/L Troponin I High Sens 93.8 H* (0-20) pg/ml Total Protein 7.9 (6.0-8.3) gm/dl Albumin 4.7 (3.4-5.0) gm/dl Globulin 3.2 (2.5-4.0) gm/dl Albumin/Globulin Ratio 1.5 (0.9-2) POC Stool Occult Blood (Negative) Blood Type A Positive Antibody Screen NEGATIVE 01/20/25 01/20/25 01/20/25 Range/Units 18:45 19:48 20:50 WBC (4.8-10.8) K/ul RBC (4.70-6.10) M/uL Hgb 13.8 L (14.0-18.0) g/dl Hct (42.0-52.0) % MCV (80.0-100.0) fL MCH (25.0-34.0) pg MCHC (32.0-36.0) g/dL RDW Std Deviation (36.4-46.3) fL RDW Coeff of Loretta (11.5-14.5) % Plt Count (130-400) K/uL MPV (9.4-12.4) fL PT (9.0-12.0) Seconds INR (0.9-1.1) APTT (21-31) Seconds PTT Ratio Sodium (136-145) mmol/L Potassium (3.5-5.1) mmol/L Chloride (98-107) mmol/L Carbon Dioxide (21-32) mmol/L Anion Gap (3-11) BUN (6-23) mg/dl Creatinine (0.6-1.4) mg/dl Est Cr Clr Drug Dosing ml/min eGFR BUN/Creatinine Ratio (10-20) Glucose (70-99(Fasting)) mg/dl Lactate (0.4-2.0) mmol/L Calcium (8.6-10.3) mg/dl Total Bilirubin (0.2-1.0) mg/dl AST (13-39) U/L ALT (7-52) U/L Alkaline Phosphatase (34-104) U/L Troponin I High Sens 97.1 H* (0-20) pg/ml Total Protein (6.0-8.3) gm/dl Albumin (3.4-5.0) gm/dl Globulin (2.5-4.0) gm/dl Albumin/Globulin Ratio (0.9-2) POC Stool Occult Blood Positive A (Negative) Blood Type Antibody Screen 01/20/25 Range/Units 20:58 WBC (4.8-10.8) K/ul RBC (4.70-6.10) M/uL Hgb 13.5 L (14.0-18.0) g/dl Hct (42.0-52.0) % MCV (80.0-100.0) fL MCH (25.0-34.0) pg MCHC (32.0-36.0) g/dL RDW Std Deviation (36.4-46.3) fL RDW Coeff of Loretta (11.5-14.5) % Plt Count (130-400) K/uL MPV (9.4-12.4) fL PT (9.0-12.0) Seconds INR (0.9-1.1) APTT (21-31) Seconds PTT Ratio Sodium (136-145) mmol/L Potassium (3.5-5.1) mmol/L Chloride (98-107) mmol/L Carbon Dioxide (21-32) mmol/L Anion Gap (3-11) BUN (6-23) mg/dl Creatinine (0.6-1.4) mg/dl Est Cr Clr Drug Dosing ml/min eGFR BUN/Creatinine Ratio (10-20) Glucose (70-99(Fasting)) mg/dl Lactate (0.4-2.0) mmol/L Calcium (8.6-10.3) mg/dl Total Bilirubin (0.2-1.0) mg/dl AST (13-39) U/L ALT (7-52) U/L Alkaline Phosphatase (34-104) U/L Troponin I High Sens (0-20) pg/ml Total Protein (6.0-8.3) gm/dl Albumin (3.4-5.0) gm/dl Globulin (2.5-4.0) gm/dl Albumin/Globulin Ratio (0.9-2) POC Stool Occult Blood (Negative) Blood Type Antibody Screen Administered Medications Lactated Ringer's (Lr) 1,000 mls @ 125 mls/hr IV .Q8H [facility] Stop: 01/21/25 10:44 Last Admin: 01/21/25 02:27 Dose: 125 mls/hr Documented By: MLS Discontinued Medications Epinephrine HCl (Epinephrine 1.5" Ndl 0.1 Mg/Ml Syr) Confirm Administered Dose 1 mg IV .STK-MED ONE Stop: 01/20/25 22:58 Last Admin: 01/20/25 23:37 Dose: Not Given Documented By: MLS Fentanyl Citrate (Fentanyl Citrate Pf 100 Mcg/2 Ml Vial) Confirm Administered Dose 100 mcg .ROUTE .STK-MED ONE Stop: 01/20/25 22:15 Last Admin: 01/20/25 23:37 Dose: Not Given Documented By: MLS Parenteral Electrolytes (Plasma-Lyte A Ph 7.4) 1,000 mls @ 999 mls/hr IV .Q1H1M ONE Stop: 01/20/25 19:19 Last Infusion: 01/20/25 20:45 Dose: Infused Documented By: Admin: 01/20/25 18:34 Dose: 999 mls/hr Documented By: lucia Pantoprazole Sodium (Protonix) 40 mg in 10 mls @ 5 mls/min IV NOW ONE Stop: 01/20/25 20:55 Last Admin: 01/20/25 21:10 Dose: 5 mls/min Documented By: TARSHA Lactated Ringer's (Lr) 1,000 mls @ 80 mls/hr IV .[id number] KIT Stop: 01/21/25 10:59 Last Infusion: 01/21/25 02:08 Dose: Infused Documented By: Admin: 01/20/25 23:37 Dose: 80 mls/hr Documented By: JERMAN Lactated Ringer's (Lr) 500 mls @ 999 mls/hr IV .Q31M ONE Stop: 01/21/25 02:39 Last Infusion: 01/21/25 02:56 Dose: Infused Documented By: Admin: 01/21/25 02:25 Dose: 999 mls/hr Documented By: JERMAN Ioversol (Optiray 320 125ml) 115 ml IV ONCE ONE Stop: 01/20/25 19:14 Last Admin: 01/20/25 19:13 Dose: 115 ml Documented By: DIMPLE Imaging Data Radiologist's Impression: Abdomen/Pelvis CTA 01/20/25 18:38 CT ANGIOGRAM ABDOMEN and PELVIS with INTRAVENOUS CONTRAST HISTORY: Abdominal pain TECHNIQUE: CT angiogram abdomen and pelvis with contrast. IV CONTRAST: 100 mL of OMNIPAQUE 300 ENTERIC CONTRAST: Not Given COMPARISON: CT abdomen and pelvis January 15, 2025 FINDINGS: LOWER CHEST: Unchanged cardiomegaly. LIVER: Scattered subcentimeter hepatic hypodensities are too small to characterize but likely represent cysts or hemangiomas. Hepatic steatosis GALLBLADDER/BILIARY: Cholelithiasis without evidence of cholecystitis. No abnormal biliary dilatation. SPLEEN: Unremarkable. PANCREAS: Unremarkable. ADRENALS: Unremarkable. KIDNEYS: Redemonstrated calculus in the right renal pelvis measuring 8 mm without evidence of appreciable obstruction. No hydronephrosis identified. Cortical cysts. PERITONEUM/RETROPERITONEUM. No lymphadenopathy by size criteria. No aortic aneurysm. Moderate atherosclerosis. GASTROINTESTINAL: No obstruction. There is an active bleed in the distal sigmoid colon in between the 2 polypectomy clips with arterial blush with pooling of the extravasated contrast in the delayed phase (series 3, image 228; series 4, image 62). Normal appendix is seen. REPRODUCTIVE: Enlarged, nodular prostate gland. URINARY BLADDER: Unremarkable ABDOMINAL WALL: Small fat-containing umbilical and right inguinal hernias. BONES: No acute findings. Severe osteoarthritis of the right hip joint with bony remodeling, thly-op-jmbj articulations and extensive subchondral cystic and sclerotic changes. IMPRESSION: Active gastrointestinal bleed in the distal sigmoid colon in between the 2 polypectomy clips. Electronically signed by Titus Price 01-20-2025 7:59 PM Discharge Plan Visit Data Chief Complaint: Rectal Bleed Stated Complaint: RECTAL BLEEDING PAST HR POST COLONOSCOPY ED Provider: Sanju Alamo Discharge Problem: Acute lower GI bleeding, Symptomatic anemia, Demand ischemia, Elevated lactic acid level, S/P colonoscopic polypectomy Patient Disposition: Admitted As Inpatient Condition: Serious Discharge Instructions Interventions: ED Discharge Assessment Last Done: 01/20/25 21:21
--- NOTE | 2025-01-20 20:00 | CT Scan Report ---
CT ANGIOGRAM ABDOMEN and PELVIS with INTRAVENOUS CONTRAST HISTORY: Abdominal pain TECHNIQUE: CT angiogram abdomen and pelvis with contrast. IV CONTRAST: 100 mL of OMNIPAQUE 300 ENTERIC CONTRAST: Not Given COMPARISON: CT abdomen and pelvis January 15, 2025 FINDINGS: LOWER CHEST: Unchanged cardiomegaly. LIVER: Scattered subcentimeter hepatic hypodensities are too small to characterize but likely represent cysts or hemangiomas. Hepatic steatosis GALLBLADDER/BILIARY: Cholelithiasis without evidence of cholecystitis. No abnormal biliary dilatation. SPLEEN: Unremarkable. PANCREAS: Unremarkable. ADRENALS: Unremarkable. KIDNEYS: Redemonstrated calculus in the right renal pelvis measuring 8 mm without evidence of appreciable obstruction. No hydronephrosis identified. Cortical cysts. PERITONEUM/RETROPERITONEUM. No lymphadenopathy by size criteria. No aortic aneurysm. Moderate atherosclerosis. GASTROINTESTINAL: No obstruction. There is an active bleed in the distal sigmoid colon in between the 2 polypectomy clips with arterial blush with pooling of the extravasated contrast in the delayed phase (series 3, image 228; series 4, image 62). Normal appendix is seen. REPRODUCTIVE: Enlarged, nodular prostate gland. URINARY BLADDER: Unremarkable ABDOMINAL WALL: Small fat-containing umbilical and right inguinal hernias. BONES: No acute findings. Severe osteoarthritis of the right hip joint with bony remodeling, ipnd-ye-gsls articulations and extensive subchondral cystic and sclerotic changes. IMPRESSION: Active gastrointestinal bleed in the distal sigmoid colon in between the 2 polypectomy clips. Electronically signed by Titus Price 01-20-2025 7:59 PM
[2025-01-20] MEDS: PANTOprazole 40 MG/10 ML SYR IV ONE (21:10)
[2025-01-20] MEDS ORDERED: LIDOCAINE 2% 2 ML VIAL/AMP(20MG/ML) INFIL ONE (21:14)
[2025-01-20] MEDS ORDERED: PROPOFOL IV EMULSION 10 MG/ML 20 ML VIAL IV ONE (21:14)
--- NOTE | 2025-01-20 21:23 | Anesthesiology Consultation ---
Date of Service January 20, 2025 Assessment & Plan (1) Encounter for pre-operative examination: Chart Review Chart Review: Acceptable Risk for Surgery and Patient NOT seen in Pre Admission Testing Consults Requested none History Surgery Operation Date: 01/20/25 21:10 Proposed Procedures p Flexible Sigmoidoscopy Dr. Nathalia Sloan Jr, MD Height/Weight Height: 5 ft 5 in Weight: 63.4 kg Allergies Allergy/AdvReac Type Severity Reaction Status Date / Time clavulanic acid AdvReac Intermediate Diarrhea Verified 01/20/25 20:53 Medications Home Medications Medication Instructions Recorded Confirmed Last Taken ozmutgtrbsjf-ikcwmlgg-vbritp 1 tab PO QAM 10/14/22 01/20/25 01/17/25 tablet (Multivitamin 50 Plus tablet) Toprol XL 25 mg tablet,extended 12.5 mg (1/2 x 25 mg) PO QAM #45 06/17/24 01/20/25 01/19/25 release (metoprolol succinate) tabs hydrocortisone 2.5 % topical cream 1 applic [place] BID PRN hemorrhoids 7 06/26/24 01/20/25 Unknown with perineal applicator days #30 grams (Anusol-HC) nystatin 100,000 unit/gram topical 1 applic topical BID PRN Unknown 09/01/24 01/20/25 Unknown powder peg 3350-electrolytes 236 240 ml PO Q10M #4,000 mL 01/15/25 01/20/25 01/20/25 gram-22.74 gram-6.74 gram-5.86 gram solution (GaviLyte-G) apixaban 5 mg tablet (Eliquis) 5 mg PO BID #180 tabs 01/16/25 01/20/25 01/17/25 acetaminophen 500 mg tablet 1,000 mg PO Q6H PRN Pain 01/19/25 01/20/25 Unknown polyethylene glycol 3350 17 gram 8.5 g PO DAILY 01/19/25 01/20/25 Unknown oral powder packet (Miralax) Past Medical History Medical History Sigmoid polyp History of rectal bleeding (01/15/25) Hemorrhoids Osteoarthritis of right hip needs replacement Tricuspid regurgitation had echo in dr. perales's office last week 12/2024 GERD (gastroesophageal reflux disease) Hx of gastritis BPH (benign prostatic hyperplasia) Chronic heart failure with preserved ejection fraction Dyslipidemia Atrial fibrillation follows with dr espinoza- had echo at his office last week. no cardioversion. controlled with medications. 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 no problems since. Ischemic colitis found in 2011 - no treatment, no current issues elevated troponin Exercise / Class Metabolic Activity II 4-5 Yardwork/Stairs/Walk up hill Past Family History Family History Father Brain tumor Mother Macular degeneration Denies family history of Ovarian cancer Prostate cancer Myocardial infarction Breast cancer Lung cancer Colorectal cancer Stroke Past Surgical History Surgical History Hx of detached retina repair (06/2024) Hx of bilateral cataract extraction (2022) Hx of detached retina repair (06/2024) H/O colonoscopy last 2011; Declines further Colonoscopy History of incision and drainage (1977) (1977)perirectal abscess Past Anesthesia History No Hx of Anesthesia Complications and No Family Hx of Anesthesia Complications History of PONV No Hx of PONV and No Hx of Motion Sickness Social History Smoking Status: Former smoker tobacco type: cigarettes Smoking cigarettes per day: 10 Do You Dip or Chew Tobacco: No Hx Alcohol Use: Yes Alcohol type: hard liquor alcohol intake frequency: 0-2 drinks per day Hx Substance Use: No substance use type: does not use Physical Exam Vital Signs Last Vital Signs Temp 36.6 C 01/20/25 21:05 Pulse 60 01/20/25 21:05 Resp 19 01/20/25 21:05 BP 139/81 01/20/25 21:05 Pulse Ox 98 01/20/25 21:05 O2 Del Method Room Air 01/20/25 21:05 Testing Laboratory Results 01/20/25 20:58 01/20/25 17:06 PT 12.4 Seconds (9.0-12.0) H 01/20/25 17:06 INR 1.2 (0.9-1.1) H 01/20/25 17:06 APTT 28 Seconds (21-31) 01/20/25 17:06 Blood Type A Positive 01/20/25 17:10 Antibody Screen NEGATIVE 01/20/25 17:10 Electrocardiogram Date: 01/20/25 Findings: + NSR @ (90)
--- NOTE | 2025-01-20 21:34 | History & Physical Report ---
Date of Service January 20, 2025 Assessment & Plan (1) Encounter for pre-operative examination: Plan: 79 year old man with postpolypectomy bleeding. Procedure and risk for colonoscopy for correction of bleeding discussed. He agrees History of Present Illness Chief Complaint: bleeding after polypectomy Primary Care Provider: Calin Padgett DO 79 year old man who had two large polyps removed earlier today. He has had bleeding since. He is here to have this corrected. Allergies Allergy/AdvReac Type Severity Reaction Status Date / Time clavulanic acid AdvReac Intermediate Diarrhea Verified 01/20/25 20:53 Home Medications Medication Instructions Recorded Confirmed Type pibbanrkcuht-bahadacb-yjoqyc 1 tab PO QAM 10/14/22 01/20/25 History tablet (Multivitamin 50 Plus tablet) Toprol XL 25 mg tablet,extended 12.5 mg (1/2 x 25 mg) PO QAM #45 06/17/24 01/20/25 Rx release (metoprolol succinate) tabs hydrocortisone 2.5 % topical cream 1 applic [place] BID PRN hemorrhoids 7 06/26/24 01/20/25 Rx with perineal applicator days #30 grams (Anusol-HC) nystatin 100,000 unit/gram topical 1 applic topical BID PRN Unknown 09/01/24 01/20/25 History powder peg 3350-electrolytes 236 240 ml PO Q10M #4,000 mL 01/15/25 01/20/25 Rx gram-22.74 gram-6.74 gram-5.86 gram solution (GaviLyte-G) apixaban 5 mg tablet (Eliquis) 5 mg PO BID #180 tabs 01/16/25 01/20/25 Rx acetaminophen 500 mg tablet 1,000 mg PO Q6H PRN Pain 01/19/25 01/20/25 History polyethylene glycol 3350 17 gram 8.5 g PO DAILY 01/19/25 01/20/25 History oral powder packet (Miralax) Past Med/Surg History Problem List Encounter for pre-operative examination Sigmoid polyp Acute lower GI bleeding (Acute) BRBPR (bright red blood per rectum) (Acute) Gastritis BPH (benign prostatic hyperplasia) Chronic heart failure with preserved ejection fraction Osteoarthritis of right hip Elevated bilirubin (Acute) Tricuspid regurgitation Hemorrhoids Constipation Generalized osteoarthritis (Chronic) Anticoagulant long-term use (Chronic) Dyslipidemia (Chronic) managed with diet Hypertension (Chronic) Mitral regurgitation (Chronic) Pulmonary hypertension (Chronic) Atrial fibrillation (Chronic) follows with dr espinoza. no cardioversion. controlled with medications. Medical History Sigmoid polyp History of rectal bleeding (01/15/25) Hemorrhoids Osteoarthritis of right hip needs replacement Tricuspid regurgitation had echo in dr. perales's office last week 12/2024 GERD (gastroesophageal reflux disease) Hx of gastritis BPH (benign prostatic hyperplasia) Chronic heart failure with preserved ejection fraction Dyslipidemia Atrial fibrillation follows with dr esipnoza- had echo at his office last week. no cardioversion. controlled with medications. 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 no problems since. Ischemic colitis found in 2011 - no treatment, no current issues Surgical History Hx of detached retina repair (06/2024) Hx of bilateral cataract extraction (2022) Hx of detached retina repair (06/2024) H/O colonoscopy last 2011; Declines further Colonoscopy History of incision and drainage (1977) (1977)perirectal abscess Family History Father Brain tumor Mother Macular degeneration Denies family history of Ovarian cancer Prostate cancer Myocardial infarction Breast cancer Lung cancer Colorectal cancer Stroke Social History Smoking Status: Former smoker Tobacco Type: Cigarettes Age Started Using Tobacco: 15; Age Quit Using Tobacco: 32; packs per day: 1; Cigarettes Per Day: 10; Second Hand Exposure: No; Do You Dip or Chew Tobacco: No; Hx Alcohol Use: Yes Alcohol type: hard liquor Alcohol Intake Frequency: 2-3 x/Week Alcohol Intake Frequency Comment: one a day Hx Substance Use: No Preferred Language: Cook Islander Communication Ability: Effective Visual Impairment: Limited Hearing Ability: Normal Peer Specialist Required: No Beliefs That Will Affect Care: None marital status: Current Living Situation: Spouse current occupational status: retired How many Children do You have: 2 Feels Safe at Home: Yes Childhood Exposure to Second-Hand Smoke: Yes (parents did ) Diet: low salt caffeine: No Dental Care, Regularly: Yes Physical Activity Frequency: Does not Exercise Physical Activity Frequency Comment: doesn't because of hip Seatbelt Use: always Sunscreen Use: No Do you think of yourself as: straight/heterosexual Assistive Devices: Glasses Physical Exam Constitutional: WD/WN, vitals as above Respiratory: normal respiratory effort, lungs clear to auscultation Cardiovascular: RRR, no murmur, no edema Gastrointestinal (Abdomen): normal bowel sounds, soft, nontender, no hepatosplenomegaly ASA Classification ASA ASA3 Results & Data Vital Signs (Past 12 Hours) Vital Signs Temp Pulse Pulse Resp BP BP Pulse Ox 01/20/25 21:05 36.6 C 60 19 139/81 98 01/20/25 20:50 131/77 01/20/25 20:12 60 18 100 01/20/25 20:06 59 L 16 99 01/20/25 19:54 51 L 15 100 01/20/25 19:48 63 13 99 01/20/25 19:39 61 17 99 01/20/25 19:39 144/58 H 01/20/25 19:00 62 21 99 01/20/25 18:57 62 23 99 01/20/25 18:54 97 01/20/25 18:54 16 139/69 97 01/20/25 18:42 62 24 97 01/20/25 18:38 64 01/20/25 16:46 36.8 C 66 18 143/70 H 97 O2 Del Method 01/20/25 21:05 Room Air 01/20/25 20:50 01/20/25 20:12 01/20/25 20:06 01/20/25 19:54 01/20/25 19:48 Room Air 01/20/25 19:39 01/20/25 19:39 01/20/25 19:00 01/20/25 18:57 01/20/25 18:54 Room Air 01/20/25 18:54 Room Air 01/20/25 18:42 01/20/25 18:38 01/20/25 16:46 Room Air
[2025-01-20] MEDS ORDERED: ONDANSETRON INJ 2 MG/ML 2 ML VIAL IV PRN ×2 (22:09→22:15)
[2025-01-20] MEDS ORDERED: ATROPINE SULFATE 0.1 MG/ML 10ML SYR IV PRN (22:09)
--- NOTE | 2025-01-20 22:10 | GI REPORT ---
[facility] Patient: PAUL CHAUDHRY : 1945 Sex at : Male Age: 79 Years Procedure: Colonoscopy Date: 01/20/2025 Attending Physician: Brandi Sloan MD Referring MD: Sanju Alamo DO Indications: - Therapeutic procedure - Treatment of bleeding from polypectomy site Medications: - Monitored Anesthesia Care - See the Anesthesia note for documentation of the administered medications Complications: - No immediate complications. Estimated Blood Loss: - Estimated blood loss: None. Procedure: - ASA Grade Assessment: 3E - A patient with severe systemic disease, undergoing an emergency procedure. - The adult colonoscope was introduced through the anus and advanced to the sigmoid colon. - The colonoscopy was performed without difficulty. - The quality of the bowel preparation was good. Findings: - Red blood was found in the sigmoid colon. For hemostasis, one hemostatic clip was successfully placed. Bleeding had stopped at the end of the maneuver. Area was successfully injected with 4 mL of a 0.1 mg/mL solution of epinephrine for hemostasis. - The exam was otherwise without abnormality on direct and retroflexion views. Impression: - Blood in the sigmoid colon. Clip was placed. Injected. - The examination was otherwise normal on direct and retroflexion views. - No specimens collected. Recommendation: - Admit the patient to hospital funes for observation. Procedure Code(s): - 22915-67, Colonoscopy, flexible; with control of bleeding, any method Diagnosis Code(s): - K91.840, Postprocedural hemorrhage of a digestive system organ or structure following a digestive system procedure - K92.2, Gastrointestinal hemorrhage, unspecified CPT(R) - 2023 copyright [employer]. All Rights Reserved. The CPT codes, CCI edits and ICD codes generated are intended as suggestions and were generated based on input data. These codes are preliminary and upon pharmacist hospital review may be revised to meet current compliance and payer requirements. The provider is responsible for the final determination of appropriate codes, and modifiers. Dr. Brandi Sloan MD This document has been electronically signed. Note Initiated:01/20/2025 Note Completed:01/20/2025 10:09 PM [id number]
--- NOTE | 2025-01-20 22:11 | Communication Note ---
Date of Service: January 20, 2025 Bleeding at clip site in sigmoid colon. Clipped--hemostasis. Injected with 4 cc epinephrine.
[2025-01-20] MEDS ORDERED: ACETAMINOPHEN 1,000 MG/100 ML VIAL IV PRN (22:15)
[2025-01-20] MEDS ORDERED: MoRPHine SULFATE 4 MG/ML 1 ML CARP\\VIAL IV PRN ×2 (22:23→23:30)
--- NOTE | 2025-01-20 22:25 | History & Physical Report ---
Date of Service January 20, 2025 Assessment & Plan (1) Acute lower GI bleeding: (2) S/P colonoscopy with polypectomy: (3) Anticoagulant long-term use: (4) Atrial fibrillation: Plan The patient is a 79-year-old male with a past medical history including BPH, HFpEF, tricuspid regurgitation, generalized osteoarthritis, atrial fibrillation with long-term anticoagulant use of Eliquis, pulm hypertension, hypertension, and dyslipidemia. He underwent colonoscopy today after holding his Eliquis for 3 days. Since the colonoscopy, we had a 40 mm sigmoid polyp removed, he has had persistent bright red blood per rectum with each bowel movement. Initial hemoglobin in the emergency department was down from 15.7-13.8. While in the emergency department, patient had 3 bowel movements with bright red blood. He has become very fatigued, but does not complain of chest pain or shortness of breath. CT angiography abdomen/pelvis shows active GI bleed in the distal sigmoid colon in between [address] Sloan from gastroenterology has been consulted, and coming to see the patient along with the OR team to take the patient to the OR for evaluation and treatment. From the ED, the patient was seen Plasma-Lyte 1 L fluid bolus. [facility]. Acute lower GI bleeding/status post colonoscopy with sigmoid polypectomy- Hemoglobin is dropped from 15.7-13.8. Patient has had 2 bloody bowel movements while in the ED CT angiography of abdomen and pelvis shows an active GI bleed in the distal sigmoid colon in between [address] Sloan consulted by the ED, who will be taking the patient to the OR this evening for evaluation and treatment. NPO Type and screen has been performed Pantoprazole 40 mg IV daily Acetaminophen 1 g IV every 8 hours as needed for mild pain or fever Zofran 4 mg IV every 6 hours as needed LR at 80 mL/h x 1 L, after having received 1 L normal saline bolus in the ED Morphine 2 mg IV every 3 hours as needed for moderate pain Morphine 4 mg IV every 3 hours as needed for severe pain H&H every 6 hours Intervention performed in the OR as noted by gastroenterology note has stopped bleeding. Elevated troponin/atrial fibrillation/hypertension/HFpEF- Initial troponin 97.1 with follow-up pending The patient will be admitted to telemetry for serial cardiac enzymes, serial EKG's, cardiac rhythm monitoring Most recent echocardiogram from 01/12/2025 with ejection fraction 60-65% Eliquis has been held for 3 days and will continue to be held Hold Toprol-XL 12.5 mg every morning History of Present Illness Chief Complaint: The patient presents to the emergency department with complaint of persistent lower GI bleeding with each bowel movement that has been occurring after his colonoscopy today when he had polypectomies performed. Primary Care Provider: Calin Padgett DO The patient is a 79-year-old male with a past medical history including BPH, HFpEF, tricuspid regurgitation, generalized osteoarthritis, atrial fibrillation with long-term anticoagulant use of Eliquis, pulm hypertension, hypertension, and dyslipidemia. He underwent colonoscopy today after holding his Eliquis for 3 days. Since the colonoscopy, we had a 40 mm sigmoid polyp removed, he has had persistent bright red blood per rectum with each bowel movement. Initial hemoglobin in the emergency department was down from 15.7-13.8. While in the emergency department, patient had 3 bowel movements with bright red blood. He has become very fatigued, but does not complain of chest pain or shortness of breath. CT angiography abdomen/pelvis shows active GI bleed in the distal sigmoid colon in between [address] Sloan from gastroenterology has been consulted, and coming to see the patient along with the OR team to take the patient to the OR for evaluation and treatment. From the ED, the patient w as seen Plasma-Lyte 1 L fluid bolus. He was then [facility]. Allergies Allergy/AdvReac Type Severity Reaction Status Date / Time clavulanic acid AdvReac Intermediate Diarrhea Verified 01/20/25 20:53 Home Medications Medication Instructions Recorded Confirmed Type hsksftzwqfaw-[id number] 1 tab PO QAM 10/14/22 01/20/25 History tablet (Multivitamin 50 Plus tablet) Toprol XL 25 mg tablet,extended 12.5 mg (1/2 x 25 mg) PO QAM #45 06/17/24 01/20/25 Rx release (metoprolol succinate) tabs hydrocortisone 2.5 % topical cream 1 applic VA BID PRN hemorrhoids 7 06/26/24 01/20/25 Rx with perineal applicator days #30 grams (Anusol-HC) nystatin 100,000 unit/gram topical 1 applic topical BID PRN Unknown 09/01/24 01/20/25 History powder peg 3350-electrolytes 236 240 ml PO Q10M #4,000 mL 01/15/25 01/20/25 Rx gram-22.74 gram-6.74 gram-5.86 gram solution (GaviLyte-G) apixaban 5 mg tablet (Eliquis) 5 mg PO BID #180 tabs 01/16/25 01/20/25 Rx acetaminophen 500 mg tablet 1,000 mg PO Q6H PRN Pain 01/19/25 01/20/25 History polyethylene glycol 3350 17 gram 8.5 g PO DAILY 01/19/25 01/20/25 History oral powder packet (Miralax) Past Med/Surg History Problem List S/P colonoscopy with polypectomy Encounter for pre-operative examination Sigmoid polyp Acute lower GI bleeding (Acute) BRBPR (bright red blood per rectum) (Acute) Gastritis BPH (benign prostatic hyperplasia) Chronic heart failure with preserved ejection fraction Osteoarthritis of right hip Elevated bilirubin (Acute) Tricuspid regurgitation Hemorrhoids Constipation Generalized osteoarthritis (Chronic) Anticoagulant long-term use (Chronic) Dyslipidemia (Chronic) managed with diet Hypertension (Chronic) Mitral regurgitation (Chronic) Pulmonary hypertension (Chronic) Atrial fibrillation (Chronic) follows with dr espinoza. no cardioversion. controlled with medications. Medical History Sigmoid polyp History of rectal bleeding (01/15/25) Hemorrhoids Osteoarthritis of right hip needs replacement Tricuspid regurgitation had echo in dr. perales's office last week 12/2024 GERD (gastroesophageal reflux disease) Hx of gastritis BPH (benign prostatic hyperplasia) Chronic heart failure with preserved ejection fraction Dyslipidemia Atrial fibrillation follows with dr espinoza- had echo at his office last week. no cardioversion. controlled with medications. 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 no problems since. Ischemic colitis found in 2012 - no treatment, no current issues Surgical History Hx of detached retina repair (06/2024) Hx of bilateral cataract extraction (2022) Hx of detached retina repair (06/2024) H/O colonoscopy last 2011; Declines further Colonoscopy History of incision and drainage (1977) (1977)perirectal abscess Family History Father Brain tumor Mother Macular degeneration Denies family history of Ovarian cancer Prostate cancer Myocardial infarction Breast cancer Lung cancer Colorectal cancer Stroke Social History Smoking Status: Never smoker Tobacco Type: Cigarettes Age Started Using Tobacco: 15; Age Quit Using Tobacco: 32; packs per day: 1; Cigarettes Per Day: 10; Second Hand Exposure: No; Do You Dip or Chew Tobacco: No; Hx Alcohol Use: No Hx Substance Use: No Preferred Language: Spanish Communication Ability: Effective Visual Impairment: Limited Hearing Ability: Normal Project Construction Manager Required: No Beliefs That Will Affect Care: None marital status: Current Living Situation: Spouse current occupational status: retired How many Children do You have: 2 Feels Safe at Home: Yes Childhood Exposure to Second-Hand Smoke: Yes (parents did ) Diet: low salt caffeine: No Dental Care, Regularly: Yes Physical Activity Frequency: Does not Exercise Physical Activity Frequency Comment: doesn't because of hip Seatbelt Use: always Sunscreen Use: No Do you think of yourself as: straight/heterosexual Assistive Devices: Cane and Glasses Review of Systems Review of Systems: The patient denies chest pain, palpitations, shortness of breath, dyspnea on exertion, cough, lower extremity swelling, sore throat, fevers, chills, sweats, nausea, vomiting, blood in urine, dysuria, urinary frequency or urgency, lightheadedness, dizziness, headache, memory loss, loss of consciousness, Focal weakness, numbness or tingling in arms or legs, generalized arthralgias or myalgias, back or neck pain, or night sweats. The review of systems is otherwise negative other than for that already noted above, and at least 10 systems have been reviewed. Physical Exam Physical Exam: The patient is awake, alert and oriented 3, appears fatigued, normocephalic and atraumatic, lying in bed and in no acute distress. HEENT--PERRL, EOMI, mucous membranes and oropharynx dry. Neck--supple. No JVD. No bruits. Thyroid normal, trachea midline, no adenopathy. Heart--normal S1 and S2. No murmurs, rubs or gallops. Lungs--clear bilaterally, no respiratory distress, no accessory muscle use. Abdomen--normal bowel sounds and soft. Nontender. Nondistended, no hernias or masses, no organomegaly. Extremities--no cyanosis or clubbing. No edema. There are good distal pulses b/l. Dermatologic--normal skin turgor, normal color, no abnormal lymph nodes, no rash. Neurologic--cranial nerves II through XII grossly intact. Rheumatologic--normal range of motion. Psychiatric--normal affect. Results & Data Results & Data Vital Signs (Past 12 Hours) Vital Signs Temp Pulse Pulse Resp BP BP Pulse Ox 01/20/25 22:20 79 24 144/37 H 99 01/20/25 22:10 36 C L 79 15 145/60 H 100 01/20/25 21:05 36.6 C 60 19 139/81 98 01/20/25 20:50 131/77 01/20/25 20:12 60 18 100 01/20/25 20:06 59 L 16 99 01/20/25 19:54 51 L 15 100 01/20/25 19:48 63 13 99 01/20/25 19:39 61 17 99 01/20/25 19:39 144/58 H 01/20/25 19:00 62 21 99 01/20/25 18:57 62 23 99 01/20/25 18:54 97 01/20/25 18:54 16 139/69 97 01/20/25 18:42 62 24 97 01/20/25 18:38 64 01/20/25 16:46 36.8 C 66 18 143/70 H 97 O2 Del Method O2 Flow Rate 01/20/25 22:20 Nasal Cannula 4 01/20/25 22:10 Nasal Cannula 4 01/20/25 21:05 Room Air 01/20/25 20:50 01/20/25 20:12 01/20/25 20:06 01/20/25 19:54 01/20/25 19:48 Room Air 01/20/25 19:39 01/20/25 19:39 01/20/25 19:00 01/20/25 18:57 01/20/25 18:54 Room Air 01/20/25 18:54 Room Air 01/20/25 18:42 01/20/25 18:38 01/20/25 16:46 Room Air Laboratory Results Laboratory Results WBC 7.33 K/ul (4.8-10.8) 01/20/25 17:06 RBC 4.79 M/uL (4.70-6.10) 01/20/25 17:06 Hgb 13.7 g/dl (14.0-18.0) L 01/20/25 23:46 Hct 40.2 % (42.0-52.0) L 01/20/25 23:46 MCV 95.0 fL (80.0-100.0) 01/20/25 17:06 MCH 32.8 pg (25.0-34.0) 01/20/25 17:06 MCHC 34.5 g/dL (32.0-36.0) 01/20/25 17:06 RDW Std Deviation 47.7 fL (36.4-46.3) H 01/20/25 17:06 RDW Coeff of Loretta 13.6 % (11.5-14.5) 01/20/25 17:06 Plt Count 167 K/uL (130-400) 01/20/25 17:06 MPV 10.7 fL (9.4-12.4) 01/20/25 17:06 PT 12.4 Seconds (9.0-12.0) H 01/20/25 17:06 INR 1.2 (0.9-1.1) H 01/20/25 17:06 APTT 28 Seconds (21-31) 01/20/25 17:06 PTT Ratio 1.0 01/20/25 17:06 Sodium 141 mmol/L (136-145) 01/20/25 17:06 Potassium 3.8 mmol/L (3.5-5.1) 01/20/25 17:06 Chloride 103 mmol/L (98-107) 01/20/25 17:06 Carbon Dioxide 22 mmol/L (21-32) 01/20/25 17:06 Anion Gap 16 (3-11) H 01/20/25 17:06 BUN 24 mg/dl (6-23) H 01/20/25 17:06 Creatinine 1.09 mg/dl (0.6-1.4) 01/20/25 17:06 Est Cr Clr Drug Dosing 46.2 ml/min 01/20/25 17:06 eGFR 68.18 01/20/25 17:06 BUN/Creatinine Ratio 22.0 (10-20) H 01/20/25 17:06 Glucose 99 mg/dl (70-99(Fasting)) 01/20/25 17:06 POC Glucose 94 mg/dl (70-99) 01/20/25 23:40 Lactate 1.8 mmol/L (0.4-2.0) 01/20/25 23:50 Calcium 10.1 mg/dl (8.6-10.3) 01/20/25 17:06 Total Bilirubin 6.5 mg/dl (0.2-1.0) H 01/20/25 17:06 AST 35 U/L (13-39) 01/20/25 17:06 ALT 25 U/L (7-52) 01/20/25 17:06 Alkaline Phosphatase 67 U/L (34-104) 01/20/25 17:06 Troponin I High Sens 116.7 pg/ml (0-20) H* D 01/20/25 23:46 Total Protein 7.9 gm/dl (6.0-8.3) 01/20/25 17:06 Albumin 4.7 gm/dl (3.4-5.0) 01/20/25 17:06 Globulin 3.2 gm/dl (2.5-4.0) 01/20/25 17:06 Albumin/Globulin Ratio 1.5 (0.9-2) 01/20/25 17:06 POC Stool Occult Blood Positive (Negative) A 01/20/25 20:50 Blood Type A Positive 01/20/25 17:10 Antibody Screen NEGATIVE 01/20/25 17:10 Impressions Abdomen/Pelvis CTA 01/20/25 18:38 CT ANGIOGRAM ABDOMEN and PELVIS with INTRAVENOUS CONTRAST HISTORY: Abdominal pain TECHNIQUE: CT angiogram abdomen and pelvis with contrast. IV CONTRAST: 100 mL of OMNIPAQUE 300 ENTERIC CONTRAST: Not Given COMPARISON: CT abdomen and pelvis January 15, 2025 FINDINGS: LOWER CHEST: Unchanged cardiomegaly. LIVER: Scattered subcentimeter hepatic hypodensities are too small to characterize but likely represent cysts or hemangiomas. Hepatic steatosis GALLBLADDER/BILIARY: Cholelithiasis without evidence of cholecystitis. No abnormal biliary dilatation. SPLEEN: Unremarkable. PANCREAS: Unremarkable. ADRENALS: Unremarkable. KIDNEYS: Redemonstrated calculus in the right renal pelvis measuring 8 mm without evidence of appreciable obstruction. No hydronephrosis identified. Cortical cysts. PERITONEUM/RETROPERITONEUM. No lymphadenopathy by size criteria. No aortic aneurysm. Moderate atherosclerosis. GASTROINTESTINAL: No obstruction. There is an active bleed in the distal sigmoid colon in between the 2 polypectomy clips with arterial blush with pooling of the extravasated contrast in the delayed phase (series 3, image 228; series 4, image 62). Normal appendix is seen. REPRODUCTIVE: Enlarged, nodular prostate gland. URINARY BLADDER: Unremarkable ABDOMINAL WALL: Small fat-containing umbilical and right inguinal hernias. BONES: No acute findings. Severe osteoarthritis of the right hip joint with bony remodeling, [id number] articulations and extensive subchondral cystic and sclerotic changes. IMPRESSION: Active gastrointestinal bleed in the distal sigmoid colon in between the 2 polypectomy clips. Electronically signed by Titus Price 01-20-2025 7:59 PM Code Status & VTE Plan Code Status DNR/DNI VTE Prophylaxis Plan VTE Prophylaxis will be ordered: Yes PG Care Time/CCT Total # of Minutes Spent Total Time Spent with Patient: Total time spent is greater than 50% in coordination of care (as documented) at patient's floor/unit and/or counseling patient: Coding Level of Care Code 00488 INT INP/OBS CARE 3/75MIN Diagnoses Acute lower GI bleeding K92.2 S/P colonoscopy with polypectomy Z98.890 Anticoagulant long-term use Z79.01 Atrial fibrillation I48.91
--- NOTE | 2025-01-20 23:23 | Anesthesiology Progress Note ---
Date of Service January 20, 2025 Anesthesia Post Procedure Vital Signs Vital Signs: Temp Pulse Pulse Resp BP BP Pulse Ox 01/20/25 23:00 60 14 138/59 L 98 01/20/25 22:50 58 L 12 131/53 L 99 01/20/25 22:40 36.4 C L 61 15 135/63 99 01/20/25 22:30 72 18 130/59 L 97 01/20/25 22:20 79 24 144/37 H 99 01/20/25 22:10 36 C L 79 15 145/60 H 100 01/20/25 21:05 36.6 C 60 19 139/81 98 01/20/25 20:50 131/77 01/20/25 20:12 60 18 100 01/20/25 20:06 59 L 16 99 01/20/25 19:54 51 L 15 100 01/20/25 19:48 63 13 99 01/20/25 19:39 61 17 99 01/20/25 19:39 144/58 H 01/20/25 19:00 62 21 99 01/20/25 18:57 62 23 99 01/20/25 18:54 97 01/20/25 18:54 16 139/69 97 01/20/25 18:42 62 24 97 01/20/25 18:38 64 01/20/25 16:46 36.8 C 66 18 143/70 H 97 O2 Del Method O2 Flow Rate 01/20/25 23:00 Room Air 01/20/25 22:50 Room Air 01/20/25 22:40 Room Air 01/20/25 22:30 Room Air 01/20/25 22:20 Nasal Cannula 4 01/20/25 22:10 Nasal Cannula 4 01/20/25 21:05 Room Air 01/20/25 20:50 01/20/25 20:12 01/20/25 20:06 01/20/25 19:54 01/20/25 19:48 Room Air 01/20/25 19:39 01/20/25 19:39 01/20/25 19:00 01/20/25 18:57 01/20/25 18:54 Room Air 01/20/25 18:54 Room Air 01/20/25 18:42 01/20/25 18:38 01/20/25 16:46 Room Air Pain Intensity Lower Abdomen: Pain Intensity: 4 Transfer of Care Handoff Completed per policy Notes Mental Status: alert / awake / arousable and participated in evaluation Patient Amnestic to Procedure: Yes Nausea / Vomiting: adequately controlled Pain: adequately controlled Airway Patency, RR, SpO2: stable & adequate BP & HR: stable & adequate Hydration State: stable & adequate Anesthetic Complications: no major complications apparent and Pt Satisfied with anesthetic care
[2025-01-20] MEDS: LACTATED RINGER'S 1,000 ML IV SCH (23:37)
[2025-01-21 00:07] LABS: Hematocrit (blood only) 40.2 % (42.0-52.0); Hemoglobin 13.7 g/dl (14.0-18.0)
[2025-01-21] MEDS: LACTATED RINGER'S 500 ML IV ONE (02:25)
[2025-01-21] MEDS: LACTATED RINGER'S 1,000 ML IV SCH (02:27)
[2025-01-21 05:21] LABS: Hematocrit (blood only) 33.2 % (42.0-52.0); Hemoglobin 11.7 g/dl (14.0-18.0)
[2025-01-21 05:45] LABS: Anion Gap 10.0 (3-11); Blood Urea Nitrogen 22.0 mg/dl (6-23); Calcium 8.7 mg/dl (8.6-10.3); Carbon Dioxide 23.0 mmol/L (21-32); Chloride 106.0 mmol/L (98-107); Creatinine Clr Calc Pharmacy 57.9 ml/min; Glucose 83.0 mg/dl (70-99(Fasting)); Potassium 4.0 mmol/L (3.5-5.1); Sodium 139.0 mmol/L (136-145)
[2025-01-21 06:08] LABS: Immature Granulocytes # (auto) 0.01 K/uL (0.01-0.20); Immature Granulocytes % (auto) 0.2 %; Mean Corpuscular Hemoglobin 33.1 pg (25.0-34.0); Platelet Count 135 K/uL (130-400); RDW Standard Deviation 47.9 fL (36.4-46.3); Red Blood Count 3.57 M/uL (4.70-6.10); White Blood Count 5.49 K/ul (4.8-10.8)
[2025-01-21 06:26] LABS: Alanine Aminotransferase 18.0 U/L (7-52); Albumin Globulin Ratio 1.7 (0.9-2); Albumin Level 3.5 gm/dl (3.4-5.0); Alkaline Phosphatase 48.0 U/L (34-104); Bilirubin,Total 4.6 mg/dl (0.2-1.0); Globulin 2.1 gm/dl (2.5-4.0); Total Protein 5.6 gm/dl (6.0-8.3)
[2025-01-21 06:32] LABS: Mean Corpuscular Volume 94.9 fL (80.0-100.0)
--- NOTE | 2025-01-21 07:44 | Gastroenterology Progress Note ---
Date of Service January 21, 2025 Assessment & Plan (1) Hematochezia: Plan: Hematochezia secondary to post polypectomy bleed of large polyp. Status post emergency colonoscopy with control of bleeding. No further bleeding since procedure. Clinically stable and hemodynamically stable. Can start clear liquids. 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 Ideally would like to hold it for at least a week. Admission and Anticipated Discharge Date Admission Date: January 20, 2025 Subjective No significant hematochezia post colonoscopy last night. Denies abdominal pain shortness of breath or chest pain. Physical Exam Physical Exam: No acute distress Respiratory rate regular Cardiac rhythm regular Abdomen soft nontender Results & Data Results & Data Vital Signs (Past 12 Hours) Vital Signs Temp Pulse Pulse Resp BP BP Pulse Ox 01/21/25 03:16 36.3 C L 48 L 14 121/53 L 94 01/21/25 01:43 57 L 102/57 L 01/21/25 01:40 31 L 01/20/25 23:30 36.4 C L 60 18 146/65 H 97 01/20/25 23:28 83 01/20/25 23:00 60 14 138/59 L 98 01/20/25 22:50 58 L 12 131/53 L 99 01/20/25 22:40 36.4 C L 61 15 135/63 99 01/20/25 22:30 72 18 130/59 L 97 01/20/25 22:20 79 24 144/37 H 99 01/20/25 22:10 36 C L 79 15 145/60 H 100 01/20/25 21:05 36.6 C 60 19 139/81 98 01/20/25 20:50 131/77 01/20/25 20:12 60 18 100 01/20/25 20:06 59 L 16 99 01/20/25 19:54 51 L 15 100 01/20/25 19:48 63 13 99 01/20/25 19:39 61 17 99 01/20/25 19:39 144/58 H O2 Del Method O2 Flow Rate 01/21/25 03:16 Room Air 01/21/25 01:43 01/21/25 01:40 01/20/25 23:30 Room Air 01/20/25 23:28 01/20/25 23:00 Room Air 01/20/25 22:50 Room Air 01/20/25 22:40 Room Air 01/20/25 22:30 Room Air 01/20/25 22:20 Nasal Cannula 4 01/20/25 22:10 Nasal Cannula 4 01/20/25 21:05 Room Air 01/20/25 20:50 01/20/25 20:12 01/20/25 20:06 01/20/25 19:54 01/20/25 19:48 Room Air 01/20/25 19:39 01/20/25 19:39 Laboratory Results Laboratory Results - last 48 hr 01/20/25 01/20/25 01/20/25 17:06 17:10 18:41 WBC 7.33 RBC 4.79 Hgb 15.7 Hct 45.5 MCV 95.0 MCH 32.8 MCHC 34.5 RDW Std Deviation 47.7 H RDW Coeff of Loretta 13.6 Plt Count 167 MPV 10.7 Immature Gran % (Auto) Neut % (Auto) Lymph % (Auto) [place] % (Auto) Eos % (Auto) Baso % (Auto) Neut # (Auto) Lymph # (Auto) [place] # (Auto) Eos # (Auto) Baso # (Auto) Immature Gran # (Auto) Absolute Nucleated RBC Nucleated RBC % (auto) Neutrophils % (Manual) Band Neutrophils % Lymphocytes % (Manual) Prolymphocyte % Reactive Lymphs % (Man) Monocytes % (Manual) Eosinophils % (Manual) Basophils % (Manual) Metamyelocytes % (Man) Myelocytes % (Man) Promyelocytes % (Man) Blast Cells % (Manual) Plasma Cell % (Manual) Other Cells % Nucleated RBC % Neutrophils # (Manual) Band Neutrophils # Total Absolute Neuts Lymphocytes # (Manual) Prolymphocyte # Reactive Lymphs # Total Abs Lymphocytes Monocytes # (Manual) Eosinophils # (Manual) Basophils # (Manual) Metamyelocytes # (Man) Myelocytes # (Manual) Promyelocytes # (Man) Blast Cells # (Man) Plasma Cell # (Manual) Other Cells # Nucleated RBCs # (Man) Hypersegmented Neuts Hyposegmented Neuts Hypogranular Neuts Large Granular Lymphs # Lrg Granular Lymphs Hairy Cells Smudge Cells Toxic Granulation Toxic Vacuolation Dohle Bodies Brittney Rods Platelet Estimate Hypogranular Platelets Giant Platelets Platelet Satelliting RBC Morphology Polychromasia Hypochromasia Poikilocytosis Basophilic Stippling Anisocytosis Microcytosis Macrocytosis Spherocytes Pappenheimer Bodies Sickle Cells Target Cells Tear Drop Cells Ovalocytes Stomatocytes Mcneill-[place] Bodies Echinocytes Acanthocytes (Spur) Rouleaux RBC Agglutinates Schistocytes Sezary Cell PT 12.4 H INR 1.2 H APTT 28 PTT Ratio 1.0 Sodium 141 Potassium 3.8 Chloride 103 Carbon Dioxide 22 Anion Gap 16 H BUN 24 H Creatinine 1.09 Est Cr Clr Drug Dosing 46.2 eGFR 68.18 BUN/Creatinine Ratio 22.0 H Glucose 99 POC Glucose Lactate 2.2 H* Calcium 10.1 Total Bilirubin 6.5 H AST 35 ALT 25 Alkaline Phosphatase 67 Troponin I High Sens 93.8 H* Total Protein 7.9 Albumin 4.7 Globulin 3.2 Albumin/Globulin Ratio 1.5 POC Stool Occult Blood Blood Parasites ID Blood Type A Positive Antibody Screen NEGATIVE 01/20/25 01/20/25 01/20/25 18:45 19:48 20:50 WBC RBC Hgb 13.8 L Hct MCV MCH MCHC RDW Std Deviation RDW Coeff of Loretta Plt Count MPV Immature Gran % (Auto) Neut % (Auto) Lymph % (Auto) [place] % (Auto) Eos % (Auto) Baso % (Auto) Neut # (Auto) Lymph # (Auto) [place] # (Auto) Eos # (Auto) Baso # (Auto) Immature Gran # (Auto) Absolute Nucleated RBC Nucleated RBC % (auto) Neutrophils % (Manual) Band Neutrophils % Lymphocytes % (Manual) Prolymphocyte % Reactive Lymphs % (Man) Monocytes % (Manual) Eosinophils % (Manual) Basophils % (Manual) Metamyelocytes % (Man) Myelocytes % (Man) Promyelocytes % (Man) Blast Cells % (Manual) Plasma Cell % (Manual) Other Cells % Nucleated RBC % Neutrophils # (Manual) Band Neutrophils # Total Absolute Neuts Lymphocytes # (Manual) Prolymphocyte # Reactive Lymphs # Total Abs Lymphocytes Monocytes # (Manual) Eosinophils # (Manual) Basophils # (Manual) Metamyelocytes # (Man) Myelocytes # (Manual) Promyelocytes # (Man) Blast Cells # (Man) Plasma Cell # (Manual) Other Cells # Nucleated RBCs # (Man) Hypersegmented Neuts Hyposegmented Neuts Hypogranular Neuts Large Granular Lymphs # Lrg Granular Lymphs Hairy Cells Smudge Cells Toxic Granulation Toxic Vacuolation Dohle Bodies Brittney Rods Platelet Estimate Hypogranular Platelets Giant Platelets Platelet Satelliting RBC Morphology Polychromasia Hypochromasia Poikilocytosis Basophilic Stippling Anisocytosis Microcytosis Macrocytosis Spherocytes Pappenheimer Bodies Sickle Cells Target Cells Tear Drop Cells Ovalocytes Stomatocytes Mcneill-[place] Bodies Echinocytes Acanthocytes (Spur) Rouleaux RBC Agglutinates Schistocytes Sezary Cell PT INR APTT PTT Ratio Sodium Potassium Chloride Carbon Dioxide Anion Gap BUN Creatinine Est Cr Clr Drug Dosing eGFR BUN/Creatinine Ratio Glucose POC Glucose Lactate Calcium Total Bilirubin AST ALT Alkaline Phosphatase Troponin I High Sens 97.1 H* Total Protein Albumin Globulin Albumin/Globulin Ratio POC Stool Occult Blood Positive A Blood Parasites ID Blood Type Antibody Screen 01/20/25 01/20/25 01/20/25 20:58 23:40 23:46 WBC RBC Hgb 13.5 L 13.7 L Hct 40.2 L MCV MCH MCHC RDW Std Deviation RDW Coeff of Loretta Plt Count MPV Immature Gran % (Auto) Neut % (Auto) Lymph % (Auto) [place] % (Auto) Eos % (Auto) Baso % (Auto) Neut # (Auto) Lymph # (Auto) [place] # (Auto) Eos # (Auto) Baso # (Auto) Immature Gran # (Auto) Absolute Nucleated RBC Nucleated RBC % (auto) Neutrophils % (Manual) Band Neutrophils % Lymphocytes % (Manual) Prolymphocyte % Reactive Lymphs % (Man) Monocytes % (Manual) Eosinophils % (Manual) Basophils % (Manual) Metamyelocytes % (Man) Myelocytes % (Man) Promyelocytes % (Man) Blast Cells % (Manual) Plasma Cell % (Manual) Other Cells % Nucleated RBC % Neutrophils # (Manual) Band Neutrophils # Total Absolute Neuts Lymphocytes # (Manual) Prolymphocyte # Reactive Lymphs # Total Abs Lymphocytes Monocytes # (Manual) Eosinophils # (Manual) Basophils # (Manual) Metamyelocytes # (Man) Myelocytes # (Manual) Promyelocytes # (Man) Blast Cells # (Man) Plasma Cell # (Manual) Other Cells # Nucleated RBCs # (Man) Hypersegmented Neuts Hyposegmented Neuts Hypogranular Neuts Large Granular Lymphs # Lrg Granular Lymphs Hairy Cells Smudge Cells Toxic Granulation Toxic Vacuolation Dohle Bodies Brittney Rods Platelet Estimate Hypogranular Platelets Giant Platelets Platelet Satelliting RBC Morphology Polychromasia Hypochromasia Poikilocytosis Basophilic Stippling Anisocytosis Microcytosis Macrocytosis Spherocytes Pappenheimer Bodies Sickle Cells Target Cells Tear Drop Cells Ovalocytes Stomatocytes Mcneill-[place] Bodies Echinocytes Acanthocytes (Spur) Rouleaux RBC Agglutinates Schistocytes Sezary Cell PT INR APTT PTT Ratio Sodium Potassium Chloride Carbon Dioxide Anion Gap BUN Creatinine Est Cr Clr Drug Dosing eGFR BUN/Creatinine Ratio Glucose POC Glucose 94 Lactate Calcium Total Bilirubin AST ALT Alkaline Phosphatase Troponin I High Sens 116.7 H* D Total Protein Albumin Globulin Albumin/Globulin Ratio POC Stool Occult Blood Blood Parasites ID Blood Type Antibody Screen 01/20/25 01/21/25 01/21/25 23:50 05:01 05:29 WBC 5.49 Cancelled RBC 3.57 L Cancelled Hgb 11.7 L Cancelled Hct 33.2 L Cancelled MCV 94.9 Cancelled MCH 33.1 Cancelled MCHC 35.2 Cancelled RDW Std Deviation 47.9 H Cancelled RDW Coeff of Loretta 13.7 Cancelled Plt Count 135 Cancelled MPV 11.0 Cancelled Immature Gran % (Auto) 0.2 Cancelled Neut % (Auto) 77.0 Cancelled Lymph % (Auto) 14.2 Cancelled [place] % (Auto) 8.0 Cancelled Eos % (Auto) 0.4 Cancelled Baso % (Auto) 0.2 Cancelled Neut # (Auto) 4.23 Cancelled Lymph # (Auto) 0.78 L Cancelled [place] # (Auto) 0.44 Cancelled Eos # (Auto) 0.02 Cancelled Baso # (Auto) 0.01 Cancelled Immature Gran # (Auto) 0.01 Cancelled Absolute Nucleated RBC Cancelled Nucleated RBC % (auto) Cancelled Neutrophils % (Manual) Cancelled Band Neutrophils % Cancelled Lymphocytes % (Manual) Cancelled Prolymphocyte % Cancelled Reactive Lymphs % (Man) Cancelled Monocytes % (Manual) Cancelled Eosinophils % (Manual) Cancelled Basophils % (Manual) Cancelled Metamyelocytes % (Man) Cancelled Myelocytes % (Man) Cancelled Promyelocytes % (Man) Cancelled Blast Cells % (Manual) Cancelled Plasma Cell % (Manual) Cancelled Other Cells % Cancelled Nucleated RBC % Cancelled Neutrophils # (Manual) Cancelled Band Neutrophils # Cancelled Total Absolute Neuts Cancelled Lymphocytes # (Manual) Cancelled Prolymphocyte # Cancelled Reactive Lymphs # Cancelled Total Abs Lymphocytes Cancelled Monocytes # (Manual) Cancelled Eosinophils # (Manual) Cancelled Basophils # (Manual) Cancelled Metamyelocytes # (Man) Cancelled Myelocytes # (Manual) Cancelled Promyelocytes # (Man) Cancelled Blast Cells # (Man) Cancelled Plasma Cell # (Manual) Cancelled Other Cells # Cancelled Nucleated RBCs # (Man) Cancelled Hypersegmented Neuts Cancelled Hyposegmented Neuts Cancelled Hypogranular Neuts Cancelled Large Granular Lymphs Cancelled # Lrg Granular Lymphs Cancelled Hairy Cells Cancelled Smudge Cells Cancelled Toxic Granulation Cancelled Toxic Vacuolation Cancelled Dohle Bodies Cancelled Brittney Rods Cancelled Platelet Estimate Cancelled Hypogranular Platelets Cancelled Giant Platelets Cancelled Platelet Satelliting Cancelled RBC Morphology Cancelled Polychromasia Cancelled Hypochromasia Cancelled Poikilocytosis Cancelled Basophilic Stippling Cancelled Anisocytosis Cancelled Microcytosis Cancelled Macrocytosis Cancelled Spherocytes Cancelled Pappenheimer Bodies Cancelled Sickle Cells Cancelled Target Cells Cancelled Tear Drop Cells Cancelled Ovalocytes Cancelled Stomatocytes Cancelled Mcneill-[place] Bodies Cancelled Echinocytes Cancelled Acanthocytes (Spur) Cancelled Rouleaux Cancelled RBC Agglutinates Cancelled Schistocytes Cancelled Sezary Cell Cancelled PT INR APTT PTT Ratio Sodium 139 Potassium 4.0 Chloride 106 Carbon Dioxide 23 Anion Gap 10 BUN 22 Creatinine 0.87 Est Cr Clr Drug Dosing 57.9 eGFR 86.69 BUN/Creatinine Ratio 25.3 H Glucose 83 POC Glucose Lactate 1.8 Calcium 8.7 Total Bilirubin 4.6 H AST 25 ALT 18 Alkaline Phosphatase 48 Troponin I High Sens 117.2 H* Total Protein 5.6 L D Albumin 3.5 Globulin 2.1 L Albumin/Globulin Ratio 1.7 POC Stool Occult Blood Blood Parasites ID Cancelled Blood Type Antibody Screen Diagnostic Findings Abdomen/Pelvis CTA 01/20/25 18:38 CT ANGIOGRAM ABDOMEN and PELVIS with INTRAVENOUS CONTRAST HISTORY: Abdominal pain TECHNIQUE: CT angiogram abdomen and pelvis with contrast. IV CONTRAST: 100 mL of OMNIPAQUE 300 ENTERIC CONTRAST: Not Given COMPARISON: CT abdomen and pelvis January 15, 2025 FINDINGS: LOWER CHEST: Unchanged cardiomegaly. LIVER: Scattered subcentimeter hepatic hypodensities are too small to characterize but likely represent cysts or hemangiomas. Hepatic steatosis GALLBLADDER/BILIARY: Cholelithiasis without evidence of cholecystitis. No abnormal biliary dilatation. SPLEEN: Unremarkable. PANCREAS: Unremarkable. ADRENALS: Unremarkable. KIDNEYS: Redemonstrated calculus in the right renal pelvis measuring 8 mm without evidence of appreciable obstruction. No hydronephrosis identified. Cortical cysts. PERITONEUM/RETROPERITONEUM. No lymphadenopathy by size criteria. No aortic aneurysm. Moderate atherosclerosis. GASTROINTESTINAL: No obstruction. There is an active bleed in the distal sigmoid colon in between the 2 polypectomy clips with arterial blush with pooling of the extravasated contrast in the delayed phase (series 3, image 228; series 4, image 62). Normal appendix is seen. REPRODUCTIVE: Enlarged, nodular prostate gland. URINARY BLADDER: Unremarkable ABDOMINAL WALL: Small fat-containing umbilical and right inguinal hernias. BONES: No acute findings. Severe osteoarthritis of the right hip joint with bony remodeling, [id number] articulations and extensive subchondral cystic and sclerotic changes. IMPRESSION: Active gastrointestinal bleed in the distal sigmoid colon in between the 2 polypectomy clips. Electronically signed by Titus Price 01-20-2025 7:59 PM PG Care Time/CCT Total # of Minutes Spent Total Time Spent with Patient: Total time spent is greater than 50% in coordination of care (as documented) at patient's floor/unit and/or counseling patient: Coding Level of Care Code 14117 SUB INP/OBS CARE 3/50MIN Diagnoses Hematochezia K92.1
--- NOTE | 2025-01-21 07:55 | Hospitalist Progress Note ---
Date of Service January 21, 2025 Assessment & Plan (1) Lower gastrointestinal hemorrhage: (2) S/P colonoscopic polypectomy: Plan In summary this is an 79-year-old male who was admitted for persistent lower gastrointestinal bleeding status post polypectomy on 01/20 requiring emergent intervention for direct hemostasis #Acute lower gastrointestinal hemorrhage from polypectomy // Chronic anticoagulation in the setting of atrial fibrillation Hemoglobin trend has been stable and the patient is asymptomatic of any progressive or persistent bleeding; the patient's plan of care was discussed with his cardiology group who recommended with holding the patient's Eliquis as long as it is necessary for hemostasis; discussed with the patient that we would anticipate resuming this medication on 01/23 which should allow enough time for mechanical and pharmacologic hemostasis that was provided on 01/20 to take full effect prior to resuming this medication Reassess hemoglobin on 01/22 Advance diet as tolerated and with GI guidance Gastroenterology consulted The remainder the patient's chronic medical conditions are stable and do not require adjustment to their outpatient regimen at this time Admission and Anticipated Discharge Date Admission Date: January 20, 2025 Subjective Mr. Rangel is an 79-year-old male whose active medical conditions include heart failure with preserved ejection fraction, atrial fibrillation, WHO class II pulmonary hypertension among other chronic medical conditions who presented to the [facility] on 01/20 after an outpatient colonoscopy due to large volume blood loss per rectum, emergently taken to the operating room/endoscopy suite on 01/20 and found to have continued bleeding from polypectomy site from earlier colonoscopy on the same day; hemostasis was achieved with a single hemostatic clip and additionally treated with 4 mL of a 0.1 mg/mL solution of epinephrine. He was subsequently admitted for continued observation No acute additional overnight events; the patient this morning feels well without specific complaint or concern. They do note passage of 1 small clot per rectum but has had no additional bowel movements or bleeding since. They have been passing flatus without any difficulty or pain. Review of Systems Review of Systems: Review of constitutional, cardiovascular, pulmonary, gastrointestinal systems was unremarkable except for pertinent positive and negative findings discussed above Physical Exam Physical Exam: General: Elderly male in no acute distress Vital Signs: Reviewed Pulmonary: Symmetric chest wall excursion without restriction Cardiovascular: Irregularly irregular rhythm with no murmurs, rubs, or gallops; S1 and S2 normal; left radial pulse 2+; brisk capillary refill in the upper extremities Gastrointestinal: Soft, nondistended; nontender to palpation throughout with normal bowel sounds Results & Data Results & Data Vital Signs (Past 12 Hours) Vital Signs Temp Pulse Pulse Resp BP BP Pulse Ox 01/21/25 03:16 36.3 C L 48 L 14 121/53 L 94 01/21/25 01:43 57 L 102/57 L 01/21/25 01:40 31 L 01/20/25 23:30 36.4 C L 60 18 146/65 H 97 01/20/25 23:28 83 01/20/25 23:00 60 14 138/59 L 98 01/20/25 22:50 58 L 12 131/53 L 99 01/20/25 22:40 36.4 C L 61 15 135/63 99 01/20/25 22:30 72 18 130/59 L 97 01/20/25 22:20 79 24 144/37 H 99 01/20/25 22:10 36 C L 79 15 145/60 H 100 01/20/25 21:05 36.6 C 60 19 139/81 98 01/20/25 20:50 131/77 01/20/25 20:12 60 18 100 01/20/25 20:06 59 L 16 99 O2 Del Method O2 Flow Rate 01/21/25 03:16 Room Air 01/21/25 01:43 01/21/25 01:40 01/20/25 23:30 Room Air 01/20/25 23:28 01/20/25 23:00 Room Air 01/20/25 22:50 Room Air 01/20/25 22:40 Room Air 01/20/25 22:30 Room Air 01/20/25 22:20 Nasal Cannula 4 01/20/25 22:10 Nasal Cannula 4 01/20/25 21:05 Room Air 01/20/25 20:50 01/20/25 20:12 01/20/25 20:06 Laboratory Results Hemoglobin trend 12.3, 11.7, 13.7, 13.5 PG Care Time/CCT Total # of Minutes Spent Total Time Spent with Patient: Total time spent is greater than 50% in coordination of care (as documented) at patient's floor/unit and/or counseling patient: Coding Level of Care Code 44444 SUB INP/OBS CARE 2/35MIN Diagnoses Lower gastrointestinal hemorrhage K92.2 S/P colonoscopic polypectomy Z98.890
[2025-01-21] MEDS: PANTOprazole 40 MG/10 ML SYR IV SCH (08:21)
[2025-01-21 10:33] LABS: Hematocrit (blood only) 35.3 % (42.0-52.0); Hemoglobin 12.3 g/dl (14.0-18.0)
--- NOTE | 2025-01-21 12:35 | Electrocardiogram Report ---
Test Reason : Blood Pressure : */* mmHG Vent. Rate : 90 BPM Atrial Rate : 90 BPM P-R Int : 136 ms QRS Dur : 120 ms QT Int : 360 ms P-R-T Axes : * -69 105 degrees QTcB Int : 440 ms Normal sinus rhythm with sinus arrhythmia Left axis deviation Left ventricular hypertrophy with QRS widening and repolarization abnormality ( R in aVL ) Anteroseptal infarct (cited on or before 07-Jul-2014) Abnormal ECG When compared with ECG of 15-Jan-2025 12:00, Sinus rhythm has replaced Atrial fibrillation Vent. rate has increased by 36 bpm T wave amplitude has increased in Inferior leads Confirmed by Kev Laughlin ([id number]) on 01/21/2025 12:35:37 PM Referred By: Confirmed By: Kev Laughlin
--- NOTE | 2025-01-21 12:41 | Electrocardiogram Report ---
Test Reason : Blood Pressure : */* mmHG Vent. Rate : 51 BPM Atrial Rate : * BPM P-R Int : * ms QRS Dur : 126 ms QT Int : 480 ms P-R-T Axes : * -59 111 degrees QTcB Int : 442 ms Atrial fibrillation with slow ventricular response Left axis deviation Left ventricular hypertrophy with QRS widening and repolarization abnormality ( R in aVL ) Cannot rule out Anteroseptal infarct (cited on or before 07-Jul-2014) Abnormal ECG When compared with ECG of 20-Jan-2025 17:01, (unconfirmed) Atrial fibrillation has replaced Sinus rhythm Vent. rate has decreased by 39 bpm T wave amplitude has decreased in Inferior leads Confirmed by Kev Laughlin ([id number]) on 01/21/2025 12:40:51 PM Referred By: REFERRED SELF Confirmed By: Kev Laughlin
--- NOTE | 2025-01-21 12:43 | Electrocardiogram Report ---
Test Reason : Blood Pressure : */* mmHG Vent. Rate : 48 BPM Atrial Rate : 300 BPM P-R Int : * ms QRS Dur : 128 ms QT Int : 518 ms P-R-T Axes : * -57 115 degrees QTcB Int : 462 ms Atrial flutter with variable A-V block Left axis deviation Non-specific intra-ventricular conduction block Minimal voltage criteria for LVH, may be normal variant Cannot rule out Anteroseptal infarct (cited on or before 07-Jul-2014) T wave abnormality, consider lateral ischemia Abnormal ECG When compared with ECG of 20-Jan-2025 19:55, (unconfirmed) Atrial flutter has replaced Atrial fibrillation ST more depressed Lateral leads T wave inversion now evident in Anterior leads Confirmed by Kev Laughlin ([id number]) on 01/21/2025 12:43:12 PM Referred By: REFERRED SELF Confirmed By: Kev Laughlin
[2025-01-21] MEDS ORDERED: ACETAMINOPHEN 500 MG TAB PO PRN (17:18)
[2025-01-22 06:34] LABS: Hematocrit (blood only) 33.9 % (42.0-52.0); Hemoglobin 12.0 g/dl (14.0-18.0)
--- NOTE | 2025-01-22 07:18 | Hospitalist Progress Note ---
Date of Service January 22, 2025 Assessment & Plan Admission and Anticipated Discharge Date Admission Date: January 20, 2025 Results & Data Results & Data Vital Signs (Past 12 Hours) Vital Signs Temp Pulse Resp BP Pulse Ox O2 Del Method 01/22/25 03:45 36.5 C 56 L 17 134/58 L 91 Room Air 01/21/25 22:46 36.7 C 56 L 17 127/64 96 Room Air 01/21/25 20:06 36.5 C 55 L 18 122/66 94 Room Air PG Care Time/CCT Total # of Minutes Spent Total Time Spent with Patient: Total time spent is greater than 50% in coordination of care (as documented) at patient's floor/unit and/or counseling patient: Coding
--- NOTE | 2025-01-22 08:07 | Gastroenterology Progress Note ---
Date of Service January 22, 2025 Assessment & Plan (1) Lower gastrointestinal hemorrhage: Plan: Secondary to post polypectomy bleed status post colonoscopy with endoscopic clipping. Bleeding has resolved. Polyp pathology's were all benign adenomas. Can advance to low residue diet. He should remain on a low residue diet for 1 to 2 weeks. He has follow-up with his ict help desk technician tomorrow. He should remain off his Eliquis until he speaks with his ict help desk technician. Ideally we would like him to stay off the Eliquis for at least a week however if his ict help desk technician wants him to start sooner he will let them know tomorrow. (2) S/P colonoscopic polypectomy: Admission and Anticipated Discharge Date Admission Date: January 20, 2025 Subjective Resting comfortably no further hematochezia no significant abdominal pain no shortness of breath no chest pain Physical Exam Physical Exam: No acute distress Respiratory rate regular Cardiac rhythm regular Abdomen soft nontender Results & Data Results & Data Vital Signs (Past 12 Hours) Vital Signs Temp Pulse Resp BP BP Pulse Ox O2 Del Method 01/22/25 07:34 36.5 C 56 L 17 134/58 L 130/64 91 01/22/25 03:45 36.5 C 56 L 17 134/58 L 91 Room Air 01/21/25 22:46 36.7 C 56 L 17 127/64 96 Room Air 01/21/25 20:06 36.5 C 55 L 18 122/66 94 Room Air Laboratory Results Laboratory Results - last 48 hr 01/20/25 01/20/25 01/20/25 17:06 17:10 18:41 WBC 7.33 RBC 4.79 Hgb 15.7 Hct 45.5 MCV 95.0 MCH 32.8 MCHC 34.5 RDW Std Deviation 47.7 H RDW Coeff of Loretta 13.6 Plt Count 167 MPV 10.7 Immature Gran % (Auto) Neut % (Auto) Lymph % (Auto) Davis % (Auto) Eos % (Auto) Baso % (Auto) Neut # (Auto) Lymph # (Auto) Davis # (Auto) Eos # (Auto) Baso # (Auto) Immature Gran # (Auto) Absolute Nucleated RBC Nucleated RBC % (auto) Neutrophils % (Manual) Band Neutrophils % Lymphocytes % (Manual) Prolymphocyte % Reactive Lymphs % (Man) Monocytes % (Manual) Eosinophils % (Manual) Basophils % (Manual) Metamyelocytes % (Man) Myelocytes % (Man) Promyelocytes % (Man) Blast Cells % (Manual) Plasma Cell % (Manual) Other Cells % Nucleated RBC % Neutrophils # (Manual) Band Neutrophils # Total Absolute Neuts Lymphocytes # (Manual) Prolymphocyte # Reactive Lymphs # Total Abs Lymphocytes Monocytes # (Manual) Eosinophils # (Manual) Basophils # (Manual) Metamyelocytes # (Man) Myelocytes # (Manual) Promyelocytes # (Man) Blast Cells # (Man) Plasma Cell # (Manual) Other Cells # Nucleated RBCs # (Man) Hypersegmented Neuts Hyposegmented Neuts Hypogranular Neuts Large Granular Lymphs # Lrg Granular Lymphs Hairy Cells Smudge Cells Toxic Granulation Toxic Vacuolation Dohle Bodies Brittney Rods Platelet Estimate Hypogranular Platelets Giant Platelets Platelet Satelliting RBC Morphology Polychromasia Hypochromasia Poikilocytosis Basophilic Stippling Anisocytosis Microcytosis Macrocytosis Spherocytes Pappenheimer Bodies Sickle Cells Target Cells Tear Drop Cells Ovalocytes Stomatocytes Mcneill-Valinda Bodies Echinocytes Acanthocytes (Spur) Rouleaux RBC Agglutinates Schistocytes Sezary Cell PT 12.4 H INR 1.2 H APTT 28 PTT Ratio 1.0 Sodium 141 Potassium 3.8 Chloride 103 Carbon Dioxide 22 Anion Gap 16 H BUN 24 H Creatinine 1.09 Est Cr Clr Drug Dosing 46.2 eGFR 68.18 BUN/Creatinine Ratio 22.0 H Glucose 99 POC Glucose Lactate 2.2 H* Calcium 10.1 Total Bilirubin 6.5 H AST 35 ALT 25 Alkaline Phosphatase 67 Troponin I High Sens 93.8 H* Total Protein 7.9 Albumin 4.7 Globulin 3.2 Albumin/Globulin Ratio 1.5 POC Stool Occult Blood Blood Parasites ID Blood Type A Positive Antibody Screen NEGATIVE 01/20/25 01/20/25 01/20/25 18:45 19:48 20:50 WBC RBC Hgb 13.8 L Hct MCV MCH MCHC RDW Std Deviation RDW Coeff of Loretta Plt Count MPV Immature Gran % (Auto) Neut % (Auto) Lymph % (Auto) Davis % (Auto) Eos % (Auto) Baso % (Auto) Neut # (Auto) Lymph # (Auto) Davis # (Auto) Eos # (Auto) Baso # (Auto) Immature Gran # (Auto) Absolute Nucleated RBC Nucleated RBC % (auto) Neutrophils % (Manual) Band Neutrophils % Lymphocytes % (Manual) Prolymphocyte % Reactive Lymphs % (Man) Monocytes % (Manual) Eosinophils % (Manual) Basophils % (Manual) Metamyelocytes % (Man) Myelocytes % (Man) Promyelocytes % (Man) Blast Cells % (Manual) Plasma Cell % (Manual) Other Cells % Nucleated RBC % Neutrophils # (Manual) Band Neutrophils # Total Absolute Neuts Lymphocytes # (Manual) Prolymphocyte # Reactive Lymphs # Total Abs Lymphocytes Monocytes # (Manual) Eosinophils # (Manual) Basophils # (Manual) Metamyelocytes # (Man) Myelocytes # (Manual) Promyelocytes # (Man) Blast Cells # (Man) Plasma Cell # (Manual) Other Cells # Nucleated RBCs # (Man) Hypersegmented Neuts Hyposegmented Neuts Hypogranular Neuts Large Granular Lymphs # Lrg Granular Lymphs Hairy Cells Smudge Cells Toxic Granulation Toxic Vacuolation Dohle Bodies Brittney Rods Platelet Estimate Hypogranular Platelets Giant Platelets Platelet Satelliting RBC Morphology Polychromasia Hypochromasia Poikilocytosis Basophilic Stippling Anisocytosis Microcytosis Macrocytosis Spherocytes Pappenheimer Bodies Sickle Cells Target Cells Tear Drop Cells Ovalocytes Stomatocytes Mcneill-Valinda Bodies Echinocytes Acanthocytes (Spur) Rouleaux RBC Agglutinates Schistocytes Sezary Cell PT INR APTT PTT Ratio Sodium Potassium Chloride Carbon Dioxide Anion Gap BUN Creatinine Est Cr Clr Drug Dosing eGFR BUN/Creatinine Ratio Glucose POC Glucose Lactate Calcium Total Bilirubin AST ALT Alkaline Phosphatase Troponin I High Sens 97.1 H* Total Protein Albumin Globulin Albumin/Globulin Ratio POC Stool Occult Blood Positive A Blood Parasites ID Blood Type Antibody Screen 01/20/25 01/20/25 01/20/25 20:58 23:40 23:46 WBC RBC Hgb 13.5 L 13.7 L Hct 40.2 L MCV MCH MCHC RDW Std Deviation RDW Coeff of Loretta Plt Count MPV Immature Gran % (Auto) Neut % (Auto) Lymph % (Auto) Davis % (Auto) Eos % (Auto) Baso % (Auto) Neut # (Auto) Lymph # (Auto) Davis # (Auto) Eos # (Auto) Baso # (Auto) Immature Gran # (Auto) Absolute Nucleated RBC Nucleated RBC % (auto) Neutrophils % (Manual) Band Neutrophils % Lymphocytes % (Manual) Prolymphocyte % Reactive Lymphs % (Man) Monocytes % (Manual) Eosinophils % (Manual) Basophils % (Manual) Metamyelocytes % (Man) Myelocytes % (Man) Promyelocytes % (Man) Blast Cells % (Manual) Plasma Cell % (Manual) Other Cells % Nucleated RBC % Neutrophils # (Manual) Band Neutrophils # Total Absolute Neuts Lymphocytes # (Manual) Prolymphocyte # Reactive Lymphs # Total Abs Lymphocytes Monocytes # (Manual) Eosinophils # (Manual) Basophils # (Manual) Metamyelocytes # (Man) Myelocytes # (Manual) Promyelocytes # (Man) Blast Cells # (Man) Plasma Cell # (Manual) Other Cells # Nucleated RBCs # (Man) Hypersegmented Neuts Hyposegmented Neuts Hypogranular Neuts Large Granular Lymphs # Lrg Granular Lymphs Hairy Cells Smudge Cells Toxic Granulation Toxic Vacuolation Dohle Bodies Brittney Rods Platelet Estimate Hypogranular Platelets Giant Platelets Platelet Satelliting RBC Morphology Polychromasia Hypochromasia Poikilocytosis Basophilic Stippling Anisocytosis Microcytosis Macrocytosis Spherocytes Pappenheimer Bodies Sickle Cells Target Cells Tear Drop Cells Ovalocytes Stomatocytes Mcneill-Valinda Bodies Echinocytes Acanthocytes (Spur) Rouleaux RBC Agglutinates Schistocytes Sezary Cell PT INR APTT PTT Ratio Sodium Potassium Chloride Carbon Dioxide Anion Gap BUN Creatinine Est Cr Clr Drug Dosing eGFR BUN/Creatinine Ratio Glucose POC Glucose 94 Lactate Calcium Total Bilirubin AST ALT Alkaline Phosphatase Troponin I High Sens 116.7 H* D Total Protein Albumin Globulin Albumin/Globulin Ratio POC Stool Occult Blood Blood Parasites ID Blood Type Antibody Screen 01/20/25 01/21/25 01/21/25 23:50 05:01 05:29 WBC 5.49 Cancelled RBC 3.57 L Cancelled Hgb 11.7 L Cancelled Hct 33.2 L Cancelled MCV 94.9 Cancelled MCH 33.1 Cancelled MCHC 35.2 Cancelled RDW Std Deviation 47.9 H Cancelled RDW Coeff of Loretta 13.7 Cancelled Plt Count 135 Cancelled MPV 11.0 Cancelled Immature Gran % (Auto) 0.2 Cancelled Neut % (Auto) 77.0 Cancelled Lymph % (Auto) 14.2 Cancelled Davis % (Auto) 8.0 Cancelled Eos % (Auto) 0.4 Cancelled Baso % (Auto) 0.2 Cancelled Neut # (Auto) 4.23 Cancelled Lymph # (Auto) 0.78 L Cancelled Davis # (Auto) 0.44 Cancelled Eos # (Auto) 0.02 Cancelled Baso # (Auto) 0.01 Cancelled Immature Gran # (Auto) 0.01 Cancelled Absolute Nucleated RBC Cancelled Nucleated RBC % (auto) Cancelled Neutrophils % (Manual) Cancelled Band Neutrophils % Cancelled Lymphocytes % (Manual) Cancelled Prolymphocyte % Cancelled Reactive Lymphs % (Man) Cancelled Monocytes % (Manual) Cancelled Eosinophils % (Manual) Cancelled Basophils % (Manual) Cancelled Metamyelocytes % (Man) Cancelled Myelocytes % (Man) Cancelled Promyelocytes % (Man) Cancelled Blast Cells % (Manual) Cancelled Plasma Cell % (Manual) Cancelled Other Cells % Cancelled Nucleated RBC % Cancelled Neutrophils # (Manual) Cancelled Band Neutrophils # Cancelled Total Absolute Neuts Cancelled Lymphocytes # (Manual) Cancelled Prolymphocyte # Cancelled Reactive Lymphs # Cancelled Total Abs Lymphocytes Cancelled Monocytes # (Manual) Cancelled Eosinophils # (Manual) Cancelled Basophils # (Manual) Cancelled Metamyelocytes # (Man) Cancelled Myelocytes # (Manual) Cancelled Promyelocytes # (Man) Cancelled Blast Cells # (Man) Cancelled Plasma Cell # (Manual) Cancelled Other Cells # Cancelled Nucleated RBCs # (Man) Cancelled Hypersegmented Neuts Cancelled Hyposegmented Neuts Cancelled Hypogranular Neuts Cancelled Large Granular Lymphs Cancelled # Lrg Granular Lymphs Cancelled Hairy Cells Cancelled Smudge Cells Cancelled Toxic Granulation Cancelled Toxic Vacuolation Cancelled Dohle Bodies Cancelled Brittney Rods Cancelled Platelet Estimate Cancelled Hypogranular Platelets Cancelled Giant Platelets Cancelled Platelet Satelliting Cancelled RBC Morphology Cancelled Polychromasia Cancelled Hypochromasia Cancelled Poikilocytosis Cancelled Basophilic Stippling Cancelled Anisocytosis Cancelled Microcytosis Cancelled Macrocytosis Cancelled Spherocytes Cancelled Pappenheimer Bodies Cancelled Sickle Cells Cancelled Target Cells Cancelled Tear Drop Cells Cancelled Ovalocytes Cancelled Stomatocytes Cancelled Mcneill-Valinda Bodies Cancelled Echinocytes Cancelled Acanthocytes (Spur) Cancelled Rouleaux Cancelled RBC Agglutinates Cancelled Schistocytes Cancelled Sezary Cell Cancelled PT INR APTT PTT Ratio Sodium 139 Potassium 4.0 Chloride 106 Carbon Dioxide 23 Anion Gap 10 BUN 22 Creatinine 0.87 Est Cr Clr Drug Dosing 57.9 eGFR 86.69 BUN/Creatinine Ratio 25.3 H Glucose 83 POC Glucose Lactate 1.8 Calcium 8.7 Total Bilirubin 4.6 H AST 25 ALT 18 Alkaline Phosphatase 48 Troponin I High Sens 117.2 H* Total Protein 5.6 L D Albumin 3.5 Globulin 2.1 L Albumin/Globulin Ratio 1.7 POC Stool Occult Blood Blood Parasites ID Cancelled Blood Type Antibody Screen 01/21/25 01/22/25 10:17 06:11 WBC RBC Hgb 12.3 L 12.0 L Hct 35.3 L 33.9 L MCV MCH MCHC RDW Std Deviation RDW Coeff of Loretta Plt Count MPV Immature Gran % (Auto) Neut % (Auto) Lymph % (Auto) Davis % (Auto) Eos % (Auto) Baso % (Auto) Neut # (Auto) Lymph # (Auto) Davis # (Auto) Eos # (Auto) Baso # (Auto) Immature Gran # (Auto) Absolute Nucleated RBC Nucleated RBC % (auto) Neutrophils % (Manual) Band Neutrophils % Lymphocytes % (Manual) Prolymphocyte % Reactive Lymphs % (Man) Monocytes % (Manual) Eosinophils % (Manual) Basophils % (Manual) Metamyelocytes % (Man) Myelocytes % (Man) Promyelocytes % (Man) Blast Cells % (Manual) Plasma Cell % (Manual) Other Cells % Nucleated RBC % Neutrophils # (Manual) Band Neutrophils # Total Absolute Neuts Lymphocytes # (Manual) Prolymphocyte # Reactive Lymphs # Total Abs Lymphocytes Monocytes # (Manual) Eosinophils # (Manual) Basophils # (Manual) Metamyelocytes # (Man) Myelocytes # (Manual) Promyelocytes # (Man) Blast Cells # (Man) Plasma Cell # (Manual) Other Cells # Nucleated RBCs # (Man) Hypersegmented Neuts Hyposegmented Neuts Hypogranular Neuts Large Granular Lymphs # Lrg Granular Lymphs Hairy Cells Smudge Cells Toxic Granulation Toxic Vacuolation Dohle Bodies Brittney Rods Platelet Estimate Hypogranular Platelets Giant Platelets Platelet Satelliting RBC Morphology Polychromasia Hypochromasia Poikilocytosis Basophilic Stippling Anisocytosis Microcytosis Macrocytosis Spherocytes Pappenheimer Bodies Sickle Cells Target Cells Tear Drop Cells Ovalocytes Stomatocytes Mcneill-Valinda Bodies Echinocytes Acanthocytes (Spur) Rouleaux RBC Agglutinates Schistocytes Sezary Cell PT INR APTT PTT Ratio Sodium Potassium Chloride Carbon Dioxide Anion Gap BUN Creatinine Est Cr Clr Drug Dosing eGFR BUN/Creatinine Ratio Glucose POC Glucose Lactate Calcium Total Bilirubin AST ALT Alkaline Phosphatase Troponin I High Sens Total Protein Albumin Globulin Albumin/Globulin Ratio POC Stool Occult Blood Blood Parasites ID Blood Type Antibody Screen PG Care Time/CCT Total # of Minutes Spent Total Time Spent with Patient: Total time spent is greater than 50% in coordination of care (as documented) at patient's floor/unit and/or counseling patient: Coding Level of Care Code 58352 SUB INP/OBS CARE 235MIN Diagnoses Lower gastrointestinal hemorrhage K92.2 S/P colonoscopic polypectomy Z98.890
[2025-01-22 08:17] VITALS: BP 126/54; PULSE 50; RESP 19; TEMP 97.5; O2SAT 95
[2025-01-22] MEDS: METOPROLOL SUCC 25MG EXT REL TAB PO SCH (08:27)
[2025-01-22] MEDS: POLYETHYLENE (MIRALAX) 17 GM PACK PO SCH (08:28)
--- NOTE | 2025-01-22 18:33 | Discharge Summary ---
Discharge Summary Date of Service January 22, 2025 Principal Dx & Hospital Course #1 = Principal Diagnosis (1) Lower gastrointestinal hemorrhage: (2) S/P colonoscopic polypectomy: Plan In summary this is an 79-year-old male who was admitted for persistent lower gastrointestinal bleeding status post polypectomy on 01/20 requiring emergent intervention for direct hemostasis #Acute lower gastrointestinal hemorrhage from polypectomy // Chronic anticoagulation in the setting of atrial fibrillation Hemoglobin trend remained stable and the patient is asymptomatic of any progressive or persistent bleeding; the patient's plan of care was discussed with his cardiology group who recommended with holding the patient's Eliquis as long as it is necessary for hemostasis; discussed with the patient that we would anticipate resuming this medication on 01/23 which should allow enough time for mechanical and pharmacologic hemostasis that was provided on 01/20 to take full effect prior to resuming this medication The remainder the patient's chronic medical conditions are stable and do not require adjustment to their outpatient regimen at this time Admission HPI Per Admitting Provider The patient is a 79-year-old male with a past medical history including BPH, HFpEF, tricuspid regurgitation, generalized osteoarthritis, atrial fibrillation with long-term anticoagulant use of Eliquis, pulm hypertension, hypertension, and dyslipidemia. He underwent colonoscopy today after holding his Eliquis for 3 days. Since the colonoscopy, we had a 40 mm sigmoid polyp removed, he has had persistent bright red blood per rectum with each bowel movement. Initial hemoglobin in the emergency department was down from 15.7-13.8. While in the emergency department, patient had 3 bowel movements with bright red blood. He has become very fatigued, but does not complain of chest pain or shortness of breath. CT angiography abdomen/pelvis shows active GI bleed in the distal sigmoid colon in between [address] Sloan from gastroenterology has been consulted, and coming to see the patient along with the OR team to take the patient to the OR for evaluation and treatment. From the ED, the patient was seen Plasma-Lyte 1 L fluid bolus. He was then referred for evaluation for admission to the [facility]. Discharge Exam General: Elderly male in no acute distress Vital Signs: Reviewed Pulmonary: Symmetric chest wall excursion without restriction Cardiovascular: Irregularly irregular rhythm with no murmurs, rubs, or gallops; S1 and S2 normal; left radial pulse 2+; brisk capillary refill in the upper extremities Gastrointestinal: Soft, nondistended; nontender to palpation throughout with normal bowel sounds Discharge Plan Discharge Items Patient Disposition: Home - Self-Care Reason For Visit: SIGMOID BLEEDING POST POLYPECTOMY Discharge Diagnosis: Acute lower gastrointestinal bleeding after polypectomy in the setting of chronic DOAC anticoagulation Condition on Discharge: Fair Activity: Per Instructions section Non-emergency contact: Primary Care Provider, Auditing Coder and Gastroenterol ogist Call non-emergency contact if: you have any medication questions and your symptoms worsen Follow-up/Referrals: Calin Padgett, [Primary Care Provider] - 01/29/25 2:30 pm (Follow up scheduled on 01/29/25 at 2:30 with Janina Cook PA-C) Diet: Low Fat and Low Sodium (2gm) Fluids: 2000ml (8 cups) Addtl Attending Provider Instructions: You were admitted to [facility] for symptomatic anemia consequential of a lower gastrointestinal hemorrhage secondary to a polypectomy performed on the same day of presentation. You underwent a scheduled outpatient colonoscopy on 01/20 which was initially uncomplicated however subsequently developed significant bleeding found to be du e to a delayed hemorrhage from one of the sites of polypectomy. This required a repeat colonoscopy on the same day, a hemostatic clip to the area affected in addition to an injection of epinephrine for hemostatic control. After discussion with [facility] Cardiology, they advised holding your Eliquis as long as necessary. Initially was held 01/18, would recommend you resume this medication on 01/23. Thank you for choosing [facility] as your healthcare provider. Pending Studies at Discharge: No Stand-Alone Forms: My [facility] Medications and DC Order Prescriptions: Continued metoprolol succinate [Toprol XL] 25 mg tablet extended release 24 hr 12.5 mg PO QAM Qty: 45 3RF Rx Instructions: ERIKA hydrocortisone [Anusol-HC] 2.5 % cream with perineal applicator 1 applic MO BID PRN (Reason: hemorrhoids) 7 Days Qty: 30 0RF nystatin 100,000 unit/gram powder 1 applic topical BID PRN (Reason: Unknown) Multivitamin 50 Plus Tablet 1 tab PO QAM acetaminophen 500 mg Tablet 1,000 mg PO Q6H PRN (Reason: Pain) polyethylene glycol 3350 [Miralax] 17 gram Powder In Packet 8.5 g PO DAILY Held Eliquis 5 mg tablet 5 mg PO BID Qty: 180 3RF Hold Instructions: Resume on 01/23/25. Rx Instructions: HAS BEEN ON HOLD Discontinued peg 3350-electrolytes [GaviLyte-G] 236-22.74-6.74 -5.86 gram recon soln 240 ml PO Q10M Qty: 4000 0RF Rx Instructions: until fecal effluent is clear Discharge Orders: Discharge Order (Routine); Ordered 01/22/25 Ordered By: Graeme Pulliam Admission Data Admit Date/Time: 01/20/25 22:16 Attending Provider: Graeme Pulliam Admit Provider: Tavo Galloway Primary Care Provider: Calin Padgett Other Providers: Brandi Sloan Jr; Tavo Galloway; David Basilio; Kev Laughlin; Jay Parra; Anders Brown; Gume Pardo Jr; Sergio Turner; Maura Morales; Laurie Moore; Macario Victoria; Macario Tyler; Era Mckeon; Kyrie Tarango; Cheri Swift; Kyrie Mccallum; Efraín Jacobs; Jonah Mckeon; Eze Orozco; Juan Carver; Vera Doss; Antionette Augustin Other Interventions: Discharge Summary Assessment (RN) Last Done: 01/22/25 07:34 Hospital Stay Data Consultations 01/20/25 20:27 Consult Gastroenterology Stat ED Decision to Admit Stat 01/21/25 07:57 Consult Cardiology Routine Procedures Performed Operation Date: 01/20/25 21:10 Actual Procedures p Flexible Sigmoidoscopy with Hemostasis(Not Applicable) - Brandi Sloan Jr, MD Diagnostic Imagining Performed 01/20/25 18:38 CTA abdomen pelvis w con [CT angio abdomen pelvis w con] Stat Pending Results Patient Have Any Pending Studies at Discharge: No Discharge Instructions Given to Patient (Per Discharging Provider) You were admitted to [facility] for symptomatic anemia consequential of a lower gastrointestinal hemorrhage secondary to a polypectomy performed on the same day of presentation. You underwent a scheduled outpatient colonoscopy on 01/20 which was initially uncomplicated however subsequently developed significant bleeding found to be due to a delayed hemorrhage from one of the sites of polypectomy. This required a repeat colonoscopy on the same day, a hemostatic clip to the area affected in addition to an injection of epinephrine for hemostatic control. After discussion with [facility] Cardiology, they advised holding your Eliquis as long as necessary. Initially was held 01/18, would recommend you resume this medication on 01/23. Thank you for choosing [facility] as your healthcare provider. Total Time Total Time Spent Total Time Spent (In Minutes): I personally spent 40 minutes in the coordination of today's discharge including bedside counseling, physical exam, medication reconciliation Coding Level of Care Code 47790 INP/OBS DISCH >30 MIN Diagnoses Lower gastrointestinal hemorrhage K92.2 S/P colonoscopic polypectomy Z98.890
== END 2025-01-22 10:12 | disposition home or self-care (01) ==
LOC: ED 16:23 → OR 21:21 → 4W 21:21 → OR 21:46 → SUATTDRO 22:16